=== PATIENT | female | born 1945 | race African-American/Black ===

== ENCOUNTER 2016-08-31 13:40 | Inpatient (IN) | payer MEDICARE, MEDICAID ==
[~2016-08-31] VITALS: Ht 167.6 cm; Wt 90.7 kg
--- NOTE | ~2016-08-31 | OP ---
PATIENT NAME: WESLEY SMITH MEDICAL RECORD: [id number] :47 LOCATION:D.M2 D.2100 ADMISSION DATE:08/31/16 SURGEON: JOEL HERNANDEZ MD DATE OF OPERATION: 09/19/2016 PREOPERATIVE DIAGNOSES: 1. Left heel decubitus ulcer. 2. End-stage renal disease. 3. Diabetes mellitus. 4. Hypertension. 5. Hypothyroidism. POSTOPERATIVE DIAGNOSES: 1. Left heel decubitus ulcer. 2. End-stage renal disease. 3. Diabetes mellitus. 4. Hypertension. 5. Hypothyroidism. PROCEDURE: Debridement of left heel ulcer. SURGEON: Joel Hernandez MD REPORT OF PROCEDURE: The patient's left heel and lower extremity were prepped and draped in sterile fashion. A large eschar was present on the posterior left heel measuring out 3 x 5 cm. This eschar was completely excised down to normal appearing skin in all directions. As we dissected down through the subcutaneous, fatty tissue was noted to be necrotic all the way down to the bone. As we reached the calcaneus, the posterior aspect of the calcaneus was necrotic and friable consistent with osteomyelitis. The surrounding tissues had some purulence within it and cultures were taken. We removed all of the necrotic tissue, which was visible and then irrigated out the wound thoroughly with peroxide and saline solution. We then treated any bleeding with electrocautery and performed debridement of the calcaneus until it appeared to be stronger more viable bony tissue. We then packed the wound with peroxide soaked 4 x 4's and covered with 4 x 4's and Kerlix. COMPLICATIONS: None. CONDITION: Stable. ANESTHESIA: General endotracheal. BLOOD LOSS: 50 mL. TRANSINT:[id number] Voice Confirmation ID: [id number] DOCUMENT ID: [id number] OPERATIVE REPORT [id number] WESLEY SMITH JOEL HERNANDEZ MD CC: [id number] DICTATION DATE: 09/19/16 1440 CAR SUPERVISOR: 09/19/[address] [facility] [address] [id number]
--- NOTE | ~2016-08-31 | HEMODYNAMI ---
PATIENT:WESLEY SMITH MEDICAL RECORD: [id number] : 47 LOCATION:[address] ADMISSION DATE: 08/31/16 Generatedon:09/22/201610:08 Patient name: WESLEY SMITH Patient #: [id number] SSN: DO B: 1945 Date of study: 09/22/2016 Page: Of Hemodynamic Procedure Report Patient Data Patient Demographics Procedure consent was obtained First Name: WESLEY Gender: Female Last Name: SARAH : 1945 Patient #: [id number] Age: 70 year(s) Race: Black Additional ID: [id number] Contact details Address: [address] [place] [address] State: [place] City: [place] Zip code: [address] Past Medical History Allergies: No known allergies Admission Admission Data Admission Date: 08/31/2016 Admission Time: 13:40 Room #: [facility] Weight (lbs.): 90 Weight (kg.): 40.82 Procedure Procedure Types Cath Procedure Peripheral Cath Diagnostic Procedure Cath Peripheral Abd/Extremity Extremities Bilat Lower Extremity Procedure Description Procedure Date Procedure Date: 09/22/2016 Procedure Start Time: 9:33 Procedure Staff Name Function Oni Guerra MD Performing Physician Yosi Tracy RT Scrub Nova Anderson RN Nurse Shivani Fraga RT Brake Lining Curer Shivani Fraga RT Monitor Procedure Data Cath Procedure Fluoroscopy Diagnostic fluoroscopy Total fluoroscopy Time: 5 time: 5 min min Diagnostic fluoroscopy Total fluoroscopy dose: 151 dose: 151 mGy mGy Contrast Material Contrast Material Type Amount (ml) Isovue 300 95 Entry Location Entry Primary Successful Side Size Upsize Upsize Entry Closure Succ essful Closure Location (Fr) 1 (Fr) 2 (Fr) Remarks Device Remarks Femoral Angio-VIP artery 6Fr Diagnostic catheters Device Type Used For End Catheter Placement Merit ULTRA BOLUS FLUSH 5Fr 65CM catheter Procedure Medications Medication Administration Route Dosage Fentanyl I.V. 50 mcg Versed I.V. 1 mg Oxygen NC 3 l/min Lidocaine 1% added to field 20 unlisted medication I.A. 2000 units Fentanyl I.V. 50 mcg Aspirin P.O. 325 mg Plavix P.O. 75 mg Hemodynamics Rest Heart Rate: 96 (bpm) Snapshots Pre Cath Intra NCS Post Cath Vital Signs Time Heart Resp SPO2 NIBP (mmHg) Rhythm Pain Sedation Rate (ipm) (%) Status Level (bpm) 9:15:09 85 21 100 137/86(94) NSR 0 (11) 10(A) , No pain 9:19:31 83 19 100 135/83(103) NSR 0 (11) 10(A) , No pain 9:23:52 85 20 100 141/82(105) NSR 0 (11) 10(A) , No pain 9:28:08 83 20 100 136/84(114) NSR 0 (11) 10(A) , No pain 9:32:24 83 18 100 128/85(106) NSR 0 (11) 10(A) , No pain 9:37:23 84 17 100 Measuring NSR 0 (11) 10(A) , No pain 9:37:43 83 16 100 139/81(111) NSR 0 (11) 9(A) , No pain 9:42:03 80 15 100 132/81(101) NSR 0 (11) 9(A) , No pain 9:46:24 79 13 100 125/80(91) NSR 0 (11) 9(A) , No pain 9:50:40 79 15 100 125/75(98) NSR 0 (11) 9(A) , No pain 9:54:55 70 14 100 122/78(99) NSR 0 (11) 9(A) , No pain 9:59:14 79 12 100 129/73(100) NSR 0 (11) 10(A) , No pain 10:03:25 82 17 100 123/80(103) NSR 0 (11) 10(A) , No pain 10:07:44 79 15 100 139/73(101) NSR 0 (11) 10(A) , No pain Medications Time Medication Route Dose Verified Delivered Reason Notes Effe ctiveness by by 9:10:11 Oxygen NC 3 Nova Nova Per protocol l/min Monica Anderson RN RN 9:10:38 Lidocaine added 20ml Nova Oni 1% to vial Monica nowak RN, MD 9:35:10 Fentanyl I.V. 50 Nova Nova for sedation mcg Monica Anderson RN RN 9:35:21 Versed I.V. 1 mg Nova Nova for sedation Monica Anderson RN RN 9:45:48 heparin I.A. 2000 Nova Oni for units Monica chaney RN, MD 9:48:35 Fentanyl I.V. 50 Nova Nova for sedation mcg Monica Anderson RN RN 10:06:41 Aspirin P.O. 325 Nova Nova mg Monica Anderson RN RN 10:06:52 Plavix P.O. 75 mg Nova Nova Monica Anderson RN metrology manager Log Time Note 8:27:28 Patient Weight : 90 kg 8:49:38 Time tracking: Regular hours 8:50:05 Plan of Care:Hemodynamics will remain stable., Cardiac rhythm will remain stable., Comfort level will be maintained., Respiratory function will remain adequate., Patient/ family verbilizes understanding of procedure., Procedure tolerated without complication., Recovers from procedure without complications.. 8:50:08 Correct patient and procedure confirmed by team. 8:50:10 Signed procedure consent form obtained from patient. 8:50:18 H&P Date Dictated: 09/22/2016 Within 30 days and on chart.. 8:50:27 - 8:50:39 Use device set IR Diagnostic 8:50:43 Sterile Angiographic Pack opened to sterile field. 8:50:44 Bag Decanter opened to sterile field. 8:50:45 Acist Manifold opened to sterile field. 8:50:46 Acist Hand Control opened to sterile field. 8:50:48 Acist Syringe opened to sterile field. 8:51:09 Terumo 5Fr [place] Sheath opened to sterile field. 8:51:10 PERCUTANEOUS ENTRY 19GA needle opened to sterile field. 8:51:11 ORVIBO DOC .035 guide wire opened to sterile field. 8:51:16 - 8:51:32 Patient diabetic? Yes. 9:10:11 Oxygen 3 l/min NC was administered by Nova Anderson RN; Per protocol ; 9:10:38 Lidocaine 1% 20ml vial added to field was administered by Oni Guerra MD; ; 9:13:38 ECG and BP/O2 sat monitors applied to patient. 9:13:39 Vital chart was started 9:13:40 Baseline sample Acquired. 9:13:42 Full Disclosure recording started 9:13:43 - 9:13:46 Family unavailable. 9:13:50 Patient NPO since Midnight. 9:16:44 Patient allergic to No known allergies 9:17:57 If diabetic: On Metformin? No 9:18:04 - 9:18:06 ----Pre-sedation anethsthesia assessment.---- 9:18:10 Previous problem with sedation/anesthesia? No ? 9:18:13 Snore? Yes 9:18:15 Sleep apnea? No 9:18:17 Deviated septum? No 9:18:18 Opens mouth fully? Yes 9:18:21 Sticks out tongue? Yes 9:18:32 Airway obstruction? No but has heart disease 9:18:37 Dentures? No ? 9:18:55 Pre procedure: right dorsailis pedis pulse Doppler 9:19:00 Pre procedure: left dorsailis pedis pulse Doppler 9:19:06 Pre procedure: right posterior tibial pulse Doppler 9:23:16 IV patent on arrival in left forearm with 0.9% NaCl at [facility]. 9:23:21 Right groin area was prepped with chlora-prep and draped in sterile fashion 9:23:30 Alarms reviewed by Lencho Garcia 9::31 Sharps counted by scrub and verified by RLeonNLeon 9::32 - 9:32:05 Physician arrived 9:32:18 --------ALL STOP TIME OUT------ 9:32:19 Final Timeout: patient, procedure, and site verified with staff and physician. All members of the team are in agreement. 9:32:36 Physical assessment completed. ASA score P 3 - A patient with severe systemic disease as per Oni Guerra MD. 9:32:42 Sedation plan: IV Moderate Sedation Versed, Fentanyl 9:33:00 A [employer] ULTRA BOLUS FLUSH 5Fr 65CM catheter was advanced over the wire and used for . 9:33:06 Procedure started. 9:33:12 Local anesthetic to right femoral artery with Lidocaine 1% by Oni Guerra MD.INITIAL ACCESS ONLY 9:35:10 Fentanyl 50 mcg I.V. was administered by Nova Anderson RN; for sedation; 9:35:21 Versed 1 mg I.V. was administered by Nova Anderson RN; for sedation; 9:36:53 Terumo TORQUE DEVICE PLASTIC .038 opened to sterile field. 9:37:10 Terumo ANGLE 260cm glide wire opened to sterile field. 9:44:57 Cook FUNES 260 guide wire opened to sterile field. 9:45:08 BasixTOUCH Inflation Syringe opened to sterile field. 9:45:48 heparin 2000 units I.A. was administered by Oni Guerra MD; for anticoagulation; 9:45:59 Inflation number: 1 A Cordis Powerflex Pro 5.0 x 40 x 135cm balloon was prepped and advanced across the Undefined1, then inflated to 15 MCKENNA for 0:10 (min:sec). 9:47:47 Inflation number: 2 A Cordis Powerflex Pro 6.0 x 40 x 135cm balloon was prepped and advanced across the Undefined1, then inflated to 15 MCKENNA for 0:08 (min:sec). 9:48:35 Fentanyl 50 mcg I.V. was administered by Nova Anderson RN; for sedation; 9:49:45 VIABAHN 6 X 10 X 120 stent was deployed across Undefined1 . 9:58:09 ANGIOSEAL-VIP PLUS 6 FR opened to sterile field. 9:59:23 A sheath was inserted into the Femoral artery 9:59:23 Sheath removed intact; hemostasis achieved with Angio-VIP 6Fr to the Femoral artery. 10:01:40 Procedure ended.(Physican Out) 10:02:19 Procedure and supply charges have been captured, reviewed, submitted an d are correct. 10:05:58 Fluoroscopy time 05.00 minutes. 10:06:04 Fluoroscopy dose: 151 mGy 10:06:04 Flurop Dose total: 151 10:06:10 Contrast amount:Isovue 300 95ml. 10:06:28 Post Procedure Pulses reassessed and unchanged 10:06:41 Aspirin 325 mg P.O. was administered by Nova Anderson RN; ; 10:06:52 Plavix 75 mg P.O. was administered by Nova Anderson RN; ; 10:08:09 Vital chart was stopped Intervention Summary Intervention Notes Time ActionType Lesion and Equipment Action# Pressure Duration Attributes Used 9:45:59 Inflate Undefined1 Cordis 1 15 00:10 balloon Powerflex Pro 5.0 x 40 x 135cm balloon 9:47:47 Inflate Undefined1 Cordis 2 15 00:08 balloon Powerflex Pro 6.0 x 40 x 135cm balloon 9:49:45 Deploy self Undefined1 VIABAHN 6 1 expanding X 10 X stent 120 stent Device Usage Item Name Manufacture Quantity Catalog Number Hospital Part Current Min imal Lot# / Charge Number Stock Stock Serial# Code Sterile Cardinal 1 [id number] Angiographic Health Pack Bag Decanter Microtek 1 [id number] 99454 611425 Groupiter Inc. Acist Acist 1 49229 797782 783792 854223 5 Manifold Medical Systems Inc Acist Hand Acist 1 26151 927499 761365 949283 5 Control Medical Systems Inc Acist Syringe Acist 1 63246 592517 459480 387117 20 Medical Systems Inc Terumo 5Fr Terumo 1 [id number] 235111 477189 643610 40 [place] Sheath PERCUTANEOUS Cook Medical 1 Y55329 610224 843172 5 ENTRY 19GA needle Cook DOC .035 Cook Medical 1 J50991 414835 528034 5 [id number] guide wire Merit ULTRA Merit 1 [id number] 303636 956835 5 BOLUS FLUSH Medical 5Fr 65CM catheter Terumo TORQUE [place] 1 TD01 939334 176804 317359 5 DEVICE Scientific PLASTIC .038 Terumo ANGLE Terumo 1 WD1872 628962 724458 559295 5 260cm glide wire Cook FUNES Cook Medical 1 U89803 008662 255444 5 [id number] 260 guide wire BasixTOUCH Merit 1 AH0775 863490 521648 074666 5 Inflation Medical Syringe Cordis Cardinal 1 [id number] 371132 419647 442748 5 Powerflex Pro Health 5.0 x 40 x 135cm balloon Cordis Cardinal 1 [id number] 416013 858254 709766 5 Powerflex Pro Health 6.0 x 40 x 135cm balloon VIABAHN 6 X [place] 1 [id number] 875794 658834 222867 5 [id number] 10 X [address]-V[address] [place] 1 895563 601159 550216 5 [id number] PLUS 6 FR Signature Audit [place] Stage Time Signature Unsigned Intra-Procedure 09/22/2016 Shivani Fraga 10:08:05 AM RT(R) Signatures Monitor : Shivani Fraga RT Signature : Date : Time : [facility] [address] [place] [address]
--- NOTE | 2016-08-31 13:47 | NUR ---
PT ARRIVED FROM EMS TEAM. PT IS CONFUSED TO PLACE AND SITUATION. PT STATES SHE LIVES AT HOME WITH HER BUT IM NOT ABLE TO VERIFY THIS AT THIS TIME. H&P VERY BASIC AND WILL NEED UPDATED WHEN MORE INFORMATION IS AVAILABLE. PT UNABLE TO PROVIDE, ACCURATELY. PT HAS A L.HAND PIV WITH DRSG CDI AND SWAB CAPS IN USE. RR NONLABORED ON RA, BREATH SOUNDS CTA THROUGHOUT ALL LOBES. IN REPORT CRISTNI NURSE FARAZ STATED PT HAD DECUB ULCER ON SACRUM HOWEVER ALL THAT I NOTED WAS A SKIN TEAR THAT APPEARED TO BE SHEARING R/T FRICTION. PT DOES HOWEVER HAVE A L.HEEL NECROTIC SORE 4X4 MEASUREMENT. PROPPED HEEL AND LEFT KEYBOARD INSTRUMENT REPAIRER AND PLACED A WOUND CARE CONSULT FOR ORDERS. VSS, CL IN REACH AND TEACHING PROVIDED. ADMISSION ASSESSMENT COMPLETED, WILL NOW NOTIFY RENAL THAT PT IS HERE AND OBTAIN ORDERS. BED ALARM IN PLACE. WILL CPOC.
[2016-08-31 14:37] LABS: BASOPHILS 0.1 % (0-2); EOSINOPHILS 0 % (0-7); HEMATOCRIT 24.8 % (36.0-48.0); HEMOGLOBIN 8.3 g/dL (12-16); IMMATURE GRANULOCYTES 0.5 % (0-5); LYMPHOCYTES 17.6 % (15-50); MCH 30.7 pg (26.0-34.0); MCHC 33.5 g/dL (31.0-37.0); MCV 91.9 fL (80.0-100.0); MONOCYTES 8.5 % (2-11); NEUTROPHILS 73.3 % (40-80); PLATELET COUNT 271 10x3/uL (130-400); RDW 17.7 % (11.5-14.5); WBC 7.3 10x3/uL (4.8-10.8)
--- NOTE | 2016-08-31 14:44 | NUR ---
AT BEDSIDE ROUNDING. PT IS CONFUSED STILL AND NEEDING DIALYSIS AND ACCESS FOR IT. CALLED PTS ER CONTACT WHOM WAS HER NIECE FLORENTINO CHAVARRIA. NIECE STATES PT HAS AND LIVES AT HOME WITH HIM BUT HE DOES NOT HAVE A PHONE. I PERSONALLY TALKED TO PT AND SHE STATES SHE KNEW SHE WAS NEEDING DIALYSIS BUT NEVER HAD TO HAVE IT YET. OBTAINED CONSENTS FOR TRIALYSIS ACCESS PER , WITNESSED WITH RAYO CALLOWAY. NIECE GAVE PHONE PERMISSION WELL PT GAVE ME VERBAL OKAY AND ATTEMPTED TO SIGN BUT SIGNATURE WAS VERY WEAK. BLOOD CONSENT CONFIRMED WELL AND WITNESSED. WILL CPOC.
[2016-08-31 14:49] LABS: ALBUMIN 2.6 g/dL (3.4-5.0); ANION GAP 26.8 mmol/L (8-16); BILIRUBIN - TOTAL 0.4 mg/dL (0.2-1.3); CARBON DIOXIDE 16.3 mmol/L (21.0-32.0); CREATININE - SERUM 12.7 mg/dL (0.6-1.3); POTASSIUM - SERUM 4.1 mmol/L (3.5-5.1); PROTEIN - SERUM 7.5 g/dL (6.4-8.2)
[2016-08-31 14:52] LABS: CALCIUM 6.4 mg/dL (8.5-10.1)
--- NOTE | 2016-08-31 15:01 | NUR ---
GUADALUPE CATH PLACED 16F. STERILE TECHNIQUE INITIATED. 10 CC STERILE FLUID INSERTED INTO BALLOON. IMMEDIATE DARK YELLOW URINE RETURN INTO CATHETER BAG 400 CC RETURN. URINE COLLECTED AND SENT TO THE LAB
[2016-08-31 15:32] LABS: APPEARANCE HAZY (CLEAR); BILIRUBIN NEGATIVE (NEGATIVE); COLOR YELLOW (YELLOW); GLUCOSE NEGATIVE (NEGATIVE); KETONE NEGATIVE (NEGATIVE); LEUKOCYTE ESTERASE 2+ (NEGATIVE); NITRITE NEGATIVE (NEGATIVE); PROTEIN 3+ mg/dL (NEGATIVE); SPECIFIC GRAVITY 1.015 (1.005-1.020); UROBILINOGEN NORMAL (NORMAL)
[2016-08-31 15:34] LABS: BACTERIA FEW /hpf (NONE SEEN); RED CELLS - URINE NONE SEEN /hpf (0-5)
--- NOTE | 2016-08-31 16:18 | NUR ---
CALLED TO FIND OUT TIME FOR TRIALYSIS PLACEMENT. HE WILL BE HERE IN ABOUT 30 MINS, CALLED [facility] FOR TRIALYSIS KIT. DIALYSIS AWARE AND WAITING FOR PLACEMENT TO BEGIN. WILL CTM.
[2016-08-31 16:25] VITALS: BP 108/78; BMI 32.3
[2016-08-31 16:39] VITALS: BP 123/67
--- NOTE | 2016-08-31 17:24 | NUR ---
AT BEDSIDE PERFORMING TRIALYSIS PLACEMENT. PT RESTING QUIETLY AND COOPERATING WITHOUT ANY ISSUES. WILL CTM.
--- NOTE | 2016-08-31 17:38 | NUR ---
13FR TRIALYSIS NOW IN PLACE PER . STAT CHEST XRAY ORDERED PER PROTOCOL TO VERIFY PLACEMENT.
--- NOTE | 2016-08-31 21:16 | NUR ---
DIALYSIS COORDINATOR: [facility]: Notified of patient needing OPHD arrangements. Patient is to receive Perm Cath (@ bedside) then undergo HD this evening. Met with patient, although confused, she was able to confirm personal/demographic information. Patient states she would like to be placed at [facility]. Referral forwarded, placement pending Crop Puller & financial approval. Will update CM once schedule confirmed. HAMZAH HARRELL.
[2016-09-01 00:23] VITALS: BP 126/66
[2016-09-01 04:13] VITALS: BP 130/63
[2016-09-01 08:30] VITALS: BP 117/47
--- NOTE | 2016-09-01 09:40 | NUR ---
PT LEAVING UNIT FOR DIALYSIS.
[2016-09-01 14:28] VITALS: Ht 167.6 cm; Wt 90.7 kg
--- NOTE | 2016-09-01 15:03 | NUR ---
WOUND CARE CONSULT: PT HAS UNSTAGEABLE PRESSURE INJURY ON LEFT HEEL. MEASURING 4CM X 7CM X ESCHAR. THE EDGES ARE PEELING WITH PINK SKIN NOTED. THERE IS A FOUL ODOR. COVERED WITH NON-ADHERENT GAUZE/ABD PAD FOR COMFORT AND WRAPPED WITH KERLIX. HEELS ARE BRIDGED ON PILLOWS. PERINEAL AREA IS EXCORIATED D/T INCONTINENCE. CALMOSEPTINE CREAM HAS BEEN ORDERED. AN AIR OVERLAY MATTRESS HAS BEEN ORDERED TO HELP DECREASE MOISTURE. THERE IS A SKIN TEAR ON PTS BOTTOM. SHE IS BEING TURNED/REPOSITIONED Q2H. WILL MONITOR.
--- NOTE | 2016-09-01 15:08 | NUR ---
PT BACK FROM DIALYSIS. ADMINISTERED LOVENOX AND EPOGEN ORDERED. PT STILL LETHARGIC AND TIRED, STILL CONFUSED. DENIES ANY PAIN OR NEEDS AT THIS TIME. PT HASNT EATEN TODAY AND DENIES BEING HUNGRY WILL MAKE SURE PRIMARY DOCTOR IS AWARE AND CTM.
[2016-09-01 15:59] VITALS: BP 118/70
--- NOTE | 2016-09-01 16:12 | NUR ---
Patient Name: WESLEY SMITH Admission Status: Urgent Accout number: [id number] Admission Date: 08-31-2016 : 1945 Admission Diagnosis:ACUTE KIDNEY FAILURE, UNSPECIFIED Attending: BARBARA Current LOS: 1 Anticipated DC Date: Planned Disposition: Home Primary Insurance: [employer]ARE ADV Discharge Planning Comments: CM RECEIVED ORDER TO ARRANGE OUTPATIENT DIALYSIS CLINIC IN [place]; CM SPOKE TO MARTA MORALEZ OF [facility] WHO IS WORKING ON NEW CLINIC ARRANGEMENT. PT WAS NOT IN ROOM AT 0900, 1000 AND 1100 TODAY. CM ATTEMPTED TO MEET WITH PT IN ROOM TODAY AT 1530 HOURS AND WAS NOT ABLE TO AROUSE PT SUFFICENTLY TO HOLD CONVERSATION. CM TO FOLLOW UP WITH PT AT LATER DATE/TIME FOR ASSESSMENT OF DISCHARGE NEEDS. Director College: Issa Bennett
--- NOTE | 2016-09-01 18:00 | NUR ---
PT STAYED LETHARGIC/DROWSY CONFUSED THROUGHOUT MY ENTIRE SHIFT. PT WILL WAKE UP TO VOICE AND TOUCH BUT IS CONFUSED. NO HOME MEDS ARE RESTARTED AND RENAL WANTS TO HOLD OFF HOPING WITH DIALYSIS SHE WILL CLEAR UP. PT ALSO DIDNT EAT TODAY WILL PASS OFF IN REPORT AND NOTIFY VENETIAN BLIND CLEANER WELL FOR POSSIBLE SUPPLEMENTATION. PT REC'D BED BATH TODAY PER CNAS. PT STARTED LOVENOX FOR DVT PROPHYLATICS TODAY. NO FURTHER NEEDS. WILL PASS ON IN REPORT AND CTM.
--- NOTE | 2016-09-01 18:38 | NUR ---
DIALYSIS COORDINATOR: Patient has been accepted at [facility] on a //Sun schedule @ 11:30am. She CANNOT START ON A SUNDAY. HAMZAH HARRELL.
[2016-09-01 20:21] VITALS: BP 116/64
[2016-09-02 00:25] VITALS: BP 137/68
[2016-09-02 04:33] VITALS: BP 118/54
[2016-09-02 06:18] LABS: BASOPHILS 0 % (0-2); EOSINOPHILS 0 % (0-7); HEMATOCRIT 21.8 % (36.0-48.0); IMMATURE GRANULOCYTES 0.4 % (0-5); LYMPHOCYTES 21.1 % (15-50); MCH 30.3 pg (26.0-34.0); MCHC 32.6 g/dL (31.0-37.0); MCV 93.2 fL (80.0-100.0); MEAN PLATELET VOLUME 9.6 fL (7.4-10.4); MONOCYTES 10.4 % (2-11); NEUTROPHILS 68.1 % (40-80); PLATELET COUNT 266 10x3/uL (130-400); RBC 2.34 10x6/uL (4.00-5.40); RDW 17.5 % (11.5-14.5); WBC 6.7 10x3/uL (4.8-10.8)
[2016-09-02 06:21] LABS: HEMOGLOBIN 7.1 g/dL (12-16)
[2016-09-02 06:35] LABS: CALCIUM 7.5 mg/dL (8.5-10.1); CREATININE - SERUM 5.3 mg/dL (0.6-1.3)
[2016-09-02 06:37] LABS: ANION GAP 15.3 mmol/L (8-16); CARBON DIOXIDE 26.2 mmol/L (21.0-32.0); POTASSIUM - SERUM 2.5 mmol/L (3.5-5.1)
--- NOTE | 2016-09-02 07:11 | NUR ---
CRITICAL LAB VALUES RECEIVED. HGB 7.1 AND K+ 2.5. CALL TO SURINDER WILKES APN CRIMINAL DEFENSE LAWYER. ORDER RECEIVED FOR 2 UNITS PRBC'S DURING DIALYSIS TODAY AND TO GIVE ONE TIME DOSE ORALLY PILL OR LIQUID FORM. REPORT GIVEN TO DAY SHIFT NURSE.
--- NOTE | 2016-09-02 07:30 | NUR ---
RESTING QUIETLY EYES CLOSED RESP UNLABORED NG TUBE PATENT TO NEGRITO DAVID NOTED
--- NOTE | 2016-09-02 07:30 | NUR ---
ASSESSMENT COMPLETED. lying quietly. NO DISTRESS NOTED. LEFT HAND SL RIGHT IJ TRIALYSIS. GUADALUPE CATH PATENT TO GRAVITY BAG. NO NEEDS VOICED. SR UP AITH CALL LIGHT IN REACH
[2016-09-02 08:01] VITALS: BP 119/59
[2016-09-02 08:17] LABS: HEPATITIS C ANTIBODY <0.1 (0.0-0.9)
[2016-09-02 15:42] VITALS: BP 116/66
--- NOTE | 2016-09-02 16:23 | NUR ---
BACK FROM DIALYSIS. NO NEEDS VOICED. V/S STABLE
--- NOTE | 2016-09-02 18:06 | NUR ---
REPOSITIONED FOR COMFORT. DENIES ANY NEEDS. CALL LIGHT IN REACH WITH SR UP . WILL MONITOR
[2016-09-02 20:00] VITALS: BP 116/55
--- NOTE | 2016-09-02 20:00 | NUR ---
RESTING IN BED. GUADALUPE PATENT TO BEDSIDE DRAIN BAG. SALINE LOCK TO LEFT HAND. RIGHT IJ TRIALYSIS. PT WAS DIALYZED TODAY. LEFT HEEL DRESSING C/D/I. TURN EVERY 2 HOURS FOR SKIN TEAR ON BUTTOCKS. SEE SHIFT ASSESSMENT. CPOC.
[2016-09-03] VITALS (7 sets, daily range): BP systolic 127–154; BP diastolic 52–85
[2016-09-03 06:59] LABS: ANION GAP 12.3 mmol/L (8-16); CARBON DIOXIDE 30.5 mmol/L (21.0-32.0)
[2016-09-03 07:00] LABS: CREATININE - SERUM 3.8 mg/dL (0.6-1.3)
[2016-09-03 07:01] LABS: POTASSIUM - SERUM 2.8 mmol/L (3.5-5.1)
[2016-09-03 07:02] LABS: BASOPHILS 0.1 % (0-2); EOSINOPHILS 0 % (0-7); HEMATOCRIT 28.9 % (36.0-48.0); HEMOGLOBIN 9.5 g/dL (12-16); IMMATURE GRANULOCYTES 0.6 % (0-5); LYMPHOCYTES 17.7 % (15-50); MCH 29.5 pg (26.0-34.0); MCHC 32.9 g/dL (31.0-37.0); MCV 89.8 fL (80.0-100.0); MEAN PLATELET VOLUME 9.7 fL (7.4-10.4); NEUTROPHILS 69.6 % (40-80); PLATELET COUNT 237 10x3/uL (130-400); RBC 3.22 10x6/uL (4.00-5.40); RDW 20.1 % (11.5-14.5); WBC 8.6 10x3/uL (4.8-10.8)
--- NOTE | 2016-09-03 07:30 | NUR ---
RESTING QUIETLY EYES CLOSED RESP UNLABORED NAD NOTED
--- NOTE | 2016-09-03 08:23 | NUR ---
ASSESSMENT COMPLETED. SL TO LEFT HAND. RIGHT IJ TRIAYLIS NOTED. GUADALUPE CATH TO GRAVITY BAG. AIR OVER LAY TO BED. . WILL MONITOR. SR UP WITH CALL LIGHT IN REACH. BUTTOCKS RED, CALMOSEPTIME APPLIED
--- NOTE | 2016-09-04 01:03 | NUR ---
TEMP 100.3 WILL MONITOR.
[2016-09-04 03:44] VITALS: BP 139/72
[2016-09-04 06:12] LABS: BASOPHILS 0.1 % (0-2); EOSINOPHILS 0 % (0-7); HEMATOCRIT 30.6 % (36.0-48.0); HEMOGLOBIN 9.9 g/dL (12-16); IMMATURE GRANULOCYTES 0.3 % (0-5); LYMPHOCYTES 20.3 % (15-50); MCH 29.6 pg (26.0-34.0); MCHC 32.4 g/dL (31.0-37.0); MCV 91.3 fL (80.0-100.0); MEAN PLATELET VOLUME 8.9 fL (7.4-10.4); MONOCYTES 10.3 % (2-11); PLATELET COUNT 205 10x3/uL (130-400); RBC 3.35 10x6/uL (4.00-5.40); RDW 20.1 % (11.5-14.5); WBC 9.4 10x3/uL (4.8-10.8)
[2016-09-04 06:29] LABS: CALCIUM 8.4 mg/dL (8.5-10.1); CARBON DIOXIDE 27.6 mmol/L (21.0-32.0); CREATININE - SERUM 4.7 mg/dL (0.6-1.3)
[2016-09-04 06:32] LABS: ANION GAP 13.4 mmol/L (8-16)
--- NOTE | 2016-09-04 06:36 | NUR ---
PT MUCH MORE ALERT/AWAKE AND INTERACTIVE THIS AM. C/O ALL OVER PAIN AND DISCOMFORT. EXPLAINED TO PATIENT THAT MD HAS KEPT HER FROM RECIEVING ANY SEDATING MEDS DUE TO HER INITIAL LETHARGY AND DIFFICULTY KEEPING HER AWAKE. INSTRUCTED PT THAT NOW SHE NEEDS TO TALK TO HER MD AND SHOW HIM THAT SHE IS MORE ALERT AND SEE IF HE WILL PROVIDE HER WITH SOME PAIN MEDICATION. PT VERY TEARFUL WITH LOW MOANING DURING CONVERSATION. MONITOR AND CONTINUE PLAN OF CARE.
[2016-09-04 08:01] VITALS: BP 155/72
[2016-09-04 12:09] VITALS: BP 166/102
--- NOTE | 2016-09-04 15:58 | NUR ---
DURING THIS SHIFT PATIENT HAS HAD 2 BOUTS OF LIQUID STOOL. COMPLETE BED BATH GIVEN WITH GUADALUPE CARE DONE. HEEL DRESSING CHANGED. SCANT AMT OF DARK BLOODY DRAINAGE ON DRESSING. NEW ONE APPLIED. ALERT BUT DOES GO RIGHT BACK TO SLEEP.
--- NOTE | 2016-09-04 18:46 | NUR ---
Mrs. Samaniego had bedside hemodialysis via her right IJ Trialysis from 1527 until 1827 today. Average blood flow was 400 mls/minute. Net fluid removed was 1500 mls. Post vital signs were: B/P: 137/42, HR: 72, Resps: 16, Temp: 96.9.
--- NOTE | 2016-09-04 19:00 | NUR ---
INITIAL ROUNDS MADE. PT LYING IN BED WATCHING TV WITH FAMILY AT BEDSIDE. REQUESTING PUDDING OR APPLESAUCE, PT CURRENTLY UNABLE TO EAT FOOD ON TRAY-NOT SOFT ENOUGH. DRY CELL BATTERY ASSEMBLER AT BEDSIDE GETTING PT SNACK. WILL CONT TO MONITOR.
[2016-09-04 21:42] VITALS: BP 144/62
[2016-09-04 23:39] VITALS: BP 126/60
--- NOTE | 2016-09-05 00:38 | NUR ---
BRICK LAYER AT BEDSIDE FOR VS. NEEDS ADDRESSED AT THIS TIME. CALL LIGHT IN REACH. WILL CONT TO MONITOR.
[2016-09-05 04:01] VITALS: BP 111/72
--- NOTE | 2016-09-05 05:00 | NUR ---
AM LABS DRAWN FROM RIGHT IJ TRIALYSIS CATHETER PER PROTOCOL.
[2016-09-05 06:05] LABS: BASOPHILS 0.1 % (0-2); EOSINOPHILS 0 % (0-7); HEMOGLOBIN 10.4 g/dL (12-16); IMMATURE GRANULOCYTES 0.4 % (0-5); LYMPHOCYTES 17.6 % (15-50); MCH 29.8 pg (26.0-34.0); MCHC 32.5 g/dL (31.0-37.0); MCV 91.7 fL (80.0-100.0); MEAN PLATELET VOLUME 9.5 fL (7.4-10.4); MONOCYTES 9.9 % (2-11); PLATELET COUNT 225 10x3/uL (130-400); RBC 3.49 10x6/uL (4.00-5.40); RDW 19.8 % (11.5-14.5); WBC 10.4 10x3/uL (4.8-10.8)
[2016-09-05 06:24] VITALS: BP 137/82
[2016-09-05 06:24] LABS: ANION GAP 12.3 mmol/L (8-16); CALCIUM 8.7 mg/dL (8.5-10.1); CREATININE - SERUM 3.2 mg/dL (0.6-1.3); POTASSIUM - SERUM 3.3 mmol/L (3.5-5.1)
[2016-09-05 08:48] VITALS: BP 145/80
--- NOTE | 2016-09-05 08:53 | NUR ---
ADMINISTERED LOVENOX ORDERED AND GAVE PAIN MED FOR PAIN LEVEL OF 8/10. PT IN BED, DENIES ANY OTHER NEEDS AT THIS TIME. CALL LIGHT IN REACH, NAD NOTED, WILL CONTINUE TO MONITOR.
[2016-09-05 12:30] VITALS: BP 131/83
--- NOTE | 2016-09-05 15:44 | NUR ---
PT IN BED, SLEEPING AT THIS TIME. CALL LIGHT IN REACH, NAD NOTED, WILL CONTINUE TO MONITOR.
[2016-09-05 16:05] VITALS: BP 146/61
[2016-09-05 20:19] VITALS: BP 154/77
--- NOTE | 2016-09-05 23:00 | NUR ---
NURSE ROUNDS 21:30 - PT LYING IN BED, AWAKE, ALERT, ORIENTED, DENIED ANY NEEDS, REQUESTING TO BE LEFT ALONE SO SHE CAN SLEEP. CONTINUE TO MONITOR CLOSELY. BED LOW, CALL LIGHT IN REACH, SIDE RAILS X 2, HOB 30 DEGREES.
[2016-09-06 00:41] VITALS: BP 150/63
[2016-09-06 04:23] VITALS: BP 135/63
--- NOTE | 2016-09-06 06:31 | NUR ---
PT AWAKE, ALERT, ORIENTED, DENIES ANY NEEDS. PT STATES SHE SLEPT WELL THIS SHIFT. I DID OBTAIN CONSENTS FOR PROCEDURE, BLOOD, AND ANESTHESIA FOR UPCOMING HEMOSPLIT PLACEMENT. CONTINUE TO MONITOR CLOSELY. BED LOW, CALL LIGHT IN REACH, SIDE RAILS X 2, HOB 30 DEGREES.
[2016-09-06 06:55] LABS: BASOPHILS 0.1 % (0-2); EOSINOPHILS 0 % (0-7); HEMATOCRIT 31.6 % (36.0-48.0); HEMOGLOBIN 10.1 g/dL (12-16); IMMATURE GRANULOCYTES 0.5 % (0-5); LYMPHOCYTES 17.8 % (15-50); MCH 29.4 pg (26.0-34.0); MCV 91.9 fL (80.0-100.0); MEAN PLATELET VOLUME 9.8 fL (7.4-10.4); MONOCYTES 6.7 % (2-11); NEUTROPHILS 74.9 % (40-80); PLATELET COUNT 218 10x3/uL (130-400); RBC 3.44 10x6/uL (4.00-5.40); RDW 19.5 % (11.5-14.5); WBC 10.4 10x3/uL (4.8-10.8)
[2016-09-06 06:56] LABS: CALCIUM 8.6 mg/dL (8.5-10.1); CARBON DIOXIDE 27.4 mmol/L (21.0-32.0); POTASSIUM - SERUM 3.4 mmol/L (3.5-5.1)
[2016-09-06 07:00] LABS: CREATININE - SERUM 4.4 mg/dL (0.6-1.3)
[2016-09-06 07:47] VITALS: BP 131/67
--- NOTE | 2016-09-06 08:23 | NUR ---
EPOGEN GIVEN ORDER, LOVENOX HELD SINCE PT IS GOING TO OR. PT WANTING TO KNOW WHAT TIME SHE IS GOING TO THE OR, WILL CHECK SCHEDULE AND LET PT KNOW. PT DENIES ANY OTHER NEEDS AT THIS TIME. CALL LIGHT IN REACH, NAD NOTED, WILL CONTINUE TO MONITOR.
--- NOTE | 2016-09-06 09:50 | NUR ---
PROVIDED PT WITH BED BATH, PT NOW C/O PAIN OF 9/10 TO HER BOTTOM WHERE SHE HAS SORE, ADMINISTERED 2TAB OF ULTRACET. PT FIXING TO GET DIALYSIS AT THIS TIME. CALL LIGHT IN REACH, NAD NOTED, WILL CONTINUE TO MONITOR.
--- NOTE | 2016-09-06 10:19 | NUR ---
PREOP MED GIVEN ORDER. PT DENIES ANY NEEDS AT THIS TIME. CALL LIGHT IN REACH, NAD NOTED, WILL CONTINUE TO MONITOR.
--- NOTE | 2016-09-06 10:39 | NUR ---
PT TAKEN TO OR AT THIS TIME, NAD NOTED.
--- NOTE | 2016-09-06 10:59 | NUR ---
Rehab Prescreening Consult recieved and the chart was reviewed. She has [facility] Medicare ADV and will require a preauth for IRF. An OT and a PT eval will be required for their review. Once these are completed the referrel will be made to [facility]. Hedy Vazquez RN Clinical Liaison, Rehab
--- NOTE | 2016-09-06 11:09 | NUR ---
DIALYSIS COORDINATOR: Armaan Thakkar Admissions: There are NO In-Network dialysis clinics in the [facility]. The patient is going to have to pursue an Zgf-by-Pcxywod Authorization. To do this we need the name of the patient's PCP. The chart lists a Dr. Al Payne ([place]). RETIRED X 4 YEARS PER OFFICE. And she is not their patient. No other physician's listed on the chart. Must have a PCP to sign the OON Auth. HAMZAH HARRELL.
[2016-09-06 12:48] VITALS: BP 108/69
--- NOTE | 2016-09-06 12:49 | NUR ---
Nutrition follow-up: Pt s/p hemosplit placement today Diet: Full liquids per surgeon PO intake ~25% of meals Labs reviewed Wt: 199# +BM, liquid PO intake poor at this time Will provide food choices with selective menus and honor food preferences within diet restrictions. RDN will order Nepro TID
--- NOTE | 2016-09-06 12:53 | NUR ---
RECEIVED PT BACK TO ROOM 210 VIA BED, VITAL SIGNS STABLE, NAD NOTED, PT DENIES ANY NEEDS AT THIS TIME. CALL LIGHT IN REACH, NAD NOTED, WILL CONTINUE TO MONITOR.
[2016-09-06 15:54] VITALS: BP 117/70
--- NOTE | 2016-09-06 17:40 | NUR ---
PT GETTING DIALYSIS AT THIS TIME. DENIES ANY NEEDS, CALL LIGHT IN REACH, NAD NOTED, WILL CONTINUE TO MONITOR.
--- NOTE | 2016-09-06 20:18 | NUR ---
REPOSITIONED IN BED FOR COMFORT, BED LOW, CL IN REACH, WILL CONT TO MONINTOR.
[2016-09-06 20:44] VITALS: BP 113/70
--- NOTE | 2016-09-07 02:03 | NUR ---
RESTING WITH EYES CLOSED, RESPERATIONS EVEN, NO S/S DISTRESS NOTED.
--- NOTE | 2016-09-07 02:57 | NUR ---
ULTRACET 2 TAB GIVEN FOR C/O PAIN. RATES PAIN AT A 7 ON PAIN SCALE.
--- NOTE | 2016-09-07 07:17 | NUR ---
PT IS SITTING UP IN BED DENIES NEEDS WILL CONT TO MONITOR
[2016-09-07 08:34] VITALS: BP 144/82
--- NOTE | 2016-09-07 08:51 | OP ---
PATIENT NAME: WESLEY SMITH MEDICAL RECORD: [id number] :[birth year] LOCATION:D. D.2101 ADMISSION DATE:08/31/16 SURGEON: GERONIMO ARTEAGA MD DATE OF OPERATION: 09/06/2016 SURGEON: Geronimo Arteaga MD. PREOPERATIVE DIAGNOSIS: Chronic renal failure requiring hemodialysis. POSTOPERATIVE DIAGNOSIS: Chronic renal failure requiring hemodialysis. PROCEDURES PERFORMED: 1. Removal of right IJ Trialysis catheter. 2. Insertion of a tunneled hemodialysis catheter into the right internal jugular vein. 3. Immediate interpretation of fluoroscopy. ANESTHESIA: General. COMPLICATIONS: None. SPECIMENS: None. Case was clean. ESTIMATED BLOOD LOSS: 10 cc. OPERATIVE COURSE: After consent was obtained, the patient was taken to the operating room and placed in the supine position on the operating table. Next, general anesthesia was given via endotracheal intubation after a timeout was taken to confirm the correct patient and procedure. The right chest and neck were prepped and draped in typical sterile fashion. An 0.035 Glidewire was placed through the Trialysis catheter. It was advanced to the atriocaval junction under fluoroscopy. The Trialysis catheter was removed. Under fluoroscopy, the dilator and breakaway sheath were passed over the Glidewire and advanced to the atriocaval junction. The dilator was removed. A 10 cc of local anesthetic were injected into the right chest wall. A skin incision was made with a 15-blade scalpel. The tunneling device was then used to tunnel the catheter tip from the skin incision site to the needle stick site. The cuff was dissected and advanced into the subcutaneous tissue. The guidewire was loaded through the hemodialysis catheter. The hemostat was then placed into the breakaway sheath, it was advanced to the atriocaval junction under fluoroscopy, the breakaway sheath was removed. The guidewire was removed. Both ports were aspirated and flushed. Needle stick site was closed with 3-0 Vicryl sutures. Catheter was secured to the skin using 3-0 nylon suture and sterile Tegaderm dressing. The catheter was then flushed with 5000 units of heparin and 30 cc of injectable saline. At the end of the case, all needle and instrument counts were correct. No complications occurred. The patient was extubated and transferred to the PACU in stable condition. TRANSINT:[id number] Voice Confirmation ID: [id number] DOCUMENT ID: [id number] OPERATIVE REPORT [id number] WESLEY SMITH,GERONIMO Amaya MD at 0851 CC: [id number] DICTATION DATE: 09/06/16 1200 CHILDREN'S ENTERTAINER: 09/06/162227 ADM IN [place] [id number] [place] [address]
--- NOTE | 2016-09-07 09:47 | NUR ---
PT REFUSING BREAKFAST TRAY. PT ALSO REFUSED FOR ME TO CHANGE LEFT HEEL DRESSING.
--- NOTE | 2016-09-07 11:09 | NUR ---
PT HAS BEEN REFUSING TO BE TURNED AND REFUSING TO LET STAFF ASSESS WOUNDS STILL. PT STATES "JUST LET ME BE"
[2016-09-07 11:53] VITALS: BP 113/72
--- NOTE | 2016-09-07 12:14 | NUR ---
PT REFUSING TO EAT LUNCH OR BE TURNED STILL
--- NOTE | 2016-09-07 14:42 | NUR ---
PT HAD INC BM EPISODE. STAFF HAD TO BEG PT TO TURN SO WE COULD CLEAN HER UP. GIVEN PT A BATH DURING THIS. CLEANED PT UP FOR INC AND APPLIED CALMOSEPTINE OINTMENT AND APPLIED MEPELEX BANDAGE SIGNED AND DATED TO BOTTOM.
--- NOTE | 2016-09-07 14:59 | NUR ---
Rehab recieved another referral on this patient today. As documented yesterday she is [employer] managed medicare and will require a preauthorization. [facility] needs a PT and an OT eval to complete their eval. A PT eval was done today but the patient would not participate. An OT eval has still not been ordered. This need was discussed with the CM yesterday and again today. Hedy Vazquez RN CL
[2016-09-07 15:32] VITALS: BP 142/88
--- NOTE | 2016-09-07 16:44 | NUR ---
PT IS STILL REFUSING TO TURN Q2. DOES NOT WANT TO "BE TOUCHED". WILL CONT TO MONITOR. STILL REFUSING TO EAT
--- NOTE | 2016-09-07 17:21 | NUR ---
Patient Name: WESLEY SMITH Encounter No: [id number] : 1945 Primary Insurance: [employer] MEDICARE ADV Anticipated DC Date: Planned Disposition: Inpatient Rehab External Planned Provider: [facility] IN[facility] DCP follow-up note: * Is the patient Alert and Oriented? Yes 0 * How many steps to enter\exit or inside your home? 4 0 * PCP DR. LUONG 0 * Pharmacy [facility] 0 * Preadmission Environment Home with Family 0 * ADLs Partial Dependent 0 * Partial ADLs (Assistance needed) Bathing Transfers 0 * Equipment Bedside Commode Hospital Bed Rolling Walker Shower Chair 0 * Other Equipment UNKNOWN MEDICAL EQUIPMENT PROVIDER PREFERENCE 0 * List name and contact numbers for known caregivers / representatives who currently or will assist patient after discharge: FLORENTINO DELMARJOSE LUISSHAYAN, 0 * Community resources currently utilized Home Health Private Duty Care 0 * Please name any agencies selected above. PT REPORTS HAVING SERVICES WITH UNKNOWN PROVIDERS: HOME HEALTH FOR NURSING PERSONAL CARE, 5 DAYS WEEKLY, 3 HOURS PER DAY 0 * Additional services required to return to the preadmission environment? Yes * Can the patient safely return to the preadmission environment? Yes 0 * Has this patient been hospitalized within the prior 30 days at any hospital? No 0 CM RECEIVED ORDER FOR INPATIENT REHAB, PENITENTIARY REHAB OR HOME HEALTH CARE. CM MET WITH PT IN ROOM TO DISCUSS ORDER, DISCHARGE PLANNING AND NEEDS FOR DISCHARGE. PT REPORTS LIVING AT HOME WITH HER SPOUSE WHO ASSISTS WITH BATHING PT AND ASSISTING HER UP ONTO HER WALKER AT HOME. PT REPORTS HAVING HOME HEALTH WITH AN UNKNOWN COMPANY THAT HAS STOPPED THE THERAPY BUT CONTINUES WITH WEEKLY NURSING VISITS. PT REPORTS HAVING PERSONAL CARE WITH UNKNOWN AGENCY, WITH SUNDAY THRU SUNDAY, 3 HOUR DAILY PERSONAL CARE SERVICES. PT REPORTS SHE WILL HAVE HER DRIVE HER TO AND FROM DIALYSIS IN [place]; PT'S SPOUSE NORMALLY TRANSPORTS PT TO ALL OUTSIDE APPOINTMENTS. CM DISCUSSED REHAB AVAILABILITY AND OPTIONS. PT WOULD LIKE TO STAY AT [facility] IF POSSIBLE AND WOULD LIKE TO TRANSITION FROM INPATIENT REHAB BACK TO HOME. PT DID NOT WANT TO CONSIDER PENITENTIARY FACILITY PLACEMENT FOR REHAB AT THIS TIME. PT REPORTS HER SPOUSE WILL PICK HER UP FOR DISCHARGE HOME. CM CALLED PATIENT PATHWAYS COORDINATOR MARTA MORAELZ, LEFT MESSAGE WITH PT'S PRIMARY DOCTOR'S NAME, DR. LUONG. CM SPOKE TO ROXANNA OF [facility] INPAT[facility] WHO REPORTS PT NEEDS OT EVALUATION FOR REHAB TO SEND REQUEST FOR AUTHORIZATION FROM [employer], PT'S INSURANCE. CM CALLED SURINDER, RENAL NURSE, OBTAINED ORDER FOR OCCUPATIONAL THERAPY EVALUATION FOR REHAB AUTHORIZATION. CM WAITING COMPLETION AND DOCUMENTATION OF OCCUPATIONAL THERAPY EVALUATION FOR [place] [place] TO COMPLETE INPATIENT REHAB PRESCREENING AND SEND FOR INSURANCE AUTHORIZATION IF APPROPRIATE. Issa Bennett, CASE MANAGEMENT
--- NOTE | 2016-09-07 19:15 | NUR ---
RECEIVED REPORT, ON ROOMAIR, IV-L. HAND, R. CHEST HEMOSPLIT, GUADALUPE CATH, ON IST OVERLAY MATTRESS, DRESSING TO L. HEEL, MEPLEX TO BOTTOM, BED IS LOW, SRX3, BED ALARM IS ON, CALL LIGHT IN REACH, PT DENIES ANY NEEDS AT THIS TIME, WILL CONTINUE PLAN OF CARE
[2016-09-07 20:00] VITALS: BP 129/70
[2016-09-08] VITALS: BP 126/67
--- NOTE | 2016-09-08 01:07 | NUR ---
HELPED ESSIE FRANKEL REPOSITION PT TO L. SIDE, FEET PROMPT UP ON 2 PILLOWS, CALL LIGHT IN REACH
[2016-09-08 04:00] VITALS: BP 153/72
[2016-09-08 04:58] LABS: BASOPHILS 0.1 % (0-2); EOSINOPHILS 0 % (0-7); HEMATOCRIT 32.8 % (36.0-48.0); HEMOGLOBIN 10.3 g/dL (12-16); IMMATURE GRANULOCYTES 0.7 % (0-5); LYMPHOCYTES 19.9 % (15-50); MCHC 31.4 g/dL (31.0-37.0); MCV 92.4 fL (80.0-100.0); MEAN PLATELET VOLUME 10.2 fL (7.4-10.4); MONOCYTES 9.9 % (2-11); NEUTROPHILS 69.4 % (40-80); PLATELET COUNT 229 10x3/uL (130-400); RBC 3.55 10x6/uL (4.00-5.40); WBC 9.7 10x3/uL (4.8-10.8)
[2016-09-08 05:10] LABS: ANION GAP 13.3 mmol/L (8-16); CALCIUM 8.5 mg/dL (8.5-10.1); CARBON DIOXIDE 27.6 mmol/L (21.0-32.0); POTASSIUM - SERUM 3.9 mmol/L (3.5-5.1)
[2016-09-08 05:11] LABS: CREATININE - SERUM 5.7 mg/dL (0.6-1.3)
--- NOTE | 2016-09-08 07:15 | NUR ---
PT SITTING UP IN BED SLEEPING RR EVEN AND UNLABORED NO S/S DISTRESS WILL CONT TO MONITOR
[2016-09-08 08:03] VITALS: BP 126/53
--- NOTE | 2016-09-08 09:13 | NUR ---
PT IS REFUSING FOR ME TO CHANGE LEFT HEEL DRESSING. ALSO REFUSING TO EAT AND TURN
[2016-09-08 11:48] VITALS: BP 133/71
--- NOTE | 2016-09-08 12:52 | NUR ---
PT WITH INC BM EPISODE. BM IS STILL DIARRHEA AND SEEDY LIGHT BROWN. LARGE AMOUNT. PT WITH COMPLETE BATH AND LINEN CHANGE. PT HEMOSPLIT DRESSING WAS NOT ADHERED TO THE SKIN, COMPLETE DRESSING CHANGE DONE STERILE TECHNIQUE INITIATED. SIGNED AND DATED. BIOPATCH AND SWAB CAPS IN USE. ASKED PT AGAIN IF I COULD CHANGE DRESSING ON LEFT FOOT SHE IS STILL REFUSING IT. SAID THAT "IT HURTS TOO MUCH AND IF WE CHANGE IT IT WILL HURT MORE." I ASKED PT IF SHE WANTED A PAIN PILL ABOUT 30 MINS BEFORE DSNG CHANGE THEN MAYBE IT WOULDNT HURT BAD. PT STILL REFUSES. PT DID AGREE TO LET US TURN HER. DONE. WILL CONT TO MONITOR
--- NOTE | 2016-09-08 13:28 | NUR ---
CALLED REAL AND ASKED IF PT WOULD BE GOING TO DIALYZE TODAY. SHE WASNT DIALYZED YESTERDAY. REAL SAID SHE WOULD BE DONE TODAY.
--- NOTE | 2016-09-08 14:09 | NUR ---
Rehab has been waiting for the PT and OT eval's to be completed in order to submit a request to [facility] for rehab preauthorization on this patient. Both eval's have been completed, however the patient refused to participate. Based on her refusal to be evaluated by PT or OT she does not qualify for acute rehab at this time. The [facility] has been made aware, Hedy Vazquez RN Clinical Liaison, Rehab
[2016-09-08 15:38] VITALS: BP 131/68
--- NOTE | 2016-09-08 15:38 | NUR ---
NOTICED WHILE GETTING PAPERWORK READY FOR PT DIALYSIS THAT [place] CANCELLED FOR TODAY. CALLED AG MELTON APN AND SENT TEXT MESSAGE TO HER TO LET HER KNOW THAT PT WASN'T DONE YESTERDAY. SPOKE WITH PT AND SHE STATED THAT SHE SPOKE TO AG AND WASN'T GETTING DIALYSIS TODAY.
--- NOTE | 2016-09-08 15:40 | NUR ---
Patient Name: WESLEY SMITH Encounter No: [id number] : 1945 Primary Insurance: [employer] MEDICARE ADV Anticipated DC Date: TO BE DETERMINED Planned Disposition: Assisted Facility External Planned Provider: TO BE DETERMINED DCP follow-up note: CM RECEIVED CALL FROM ROXANNA OF [facility] IN[facility] WHO INFORMED CM THAT PT REFUSED TO PARTICIPATE IN PT AND OT ASSESSMENTS AND [employer], PT'S INSURANCE WILL NOT APPROVE INPATIENT REHAB WITH PT REFUSING THERAPY / EVALUATIONS. CM SPOKE TO PT IN ROOM, PT STATED SHE WOULD TRY HARDER TO DO MORE. CM DISCUSSED PRISON OR HOME HEALTH. PT DOES NOT WANT TO CONSIDER [facility] IN [place] AND WANTS TO TALK TO HER ABOUT GOING HOME WITH HIS HELP AND HOME HEALTH. CM EXPLAINED TO PT THAT SHE WILL NEED TO PARTICIPATE WITH THERAPY IN ORDER FOR CARE TEAM TO PLAN A SAFE DISCHARGE AND TO EVEN SEE IF IT IS POSSIBLE FOR PT TO HOME WITH FAMILY. CM ENCOURAGED PT TO LET CM SEND REFERRALS OUT TO PRISON FACILITY IN [place] TO ASSIST WITH REHAB PLACEMENT, PT REFUSED UNTIL SHE SPEAKS TO HER . CM WAITING PT AND FAMILY DECISION ON PRISON FACILITY FOR REHAB REFERRAL VS HOME WITH HOME HEALTH. Issa Bennett, CASE MANAGEMENT
--- NOTE | 2016-09-08 15:40 | NUR ---
REAL FROM DIALYSIS SAYS THAT THE ORDERS FROM DIALYSIS HAVE BEEN CANCELLED FOR TODAY. PT HAS NOT DIALYZED SINCE SUNDAY. CALLED MAT RENAL CURTAIN FRAMER, SHE SAID SHE WOULD CALL STEVEN IN DIALYSIS AND FIGURE OUT WHAT IS GOING ON.
--- NOTE | 2016-09-08 16:45 | NUR ---
OT NOTE: PT COMPLETED LUE PROM AND BUE FM SKILLS FOR INCREASED I WITH ADLS. PT COMPLETED GROOMING WITH KERA [place]. THANK YOU, GIDEON LLAMAS/Humble
--- NOTE | 2016-09-08 17:32 | NUR ---
TALKED WITH DR NATHAN ABOUT PT DIALYSIS. SAID TO CHANGED HER TO MWF. DONE. HE SAID THEY SHOULD BE UP TO DIALYZE HER TODAY. I HAVE CALLED 6 TIMES AND NO ANSWER
--- NOTE | 2016-09-08 18:05 | NUR ---
PT SITTING UP IN BED RECEIVING DIALYSIS DENIES NEEDS
[2016-09-08 20:00] VITALS: BP 133/72
[2016-09-09] VITALS: BP 163/72
--- NOTE | 2016-09-09 01:10 | NUR ---
ASSESSMENT COMPLETE, PT IS ON ROOM AIR, IV-L.HAND-SL, ISO-C-DIFF, R. CHEST HEMOSPLIT, GUADALUPE-NO OUTPUT, ON 1ST MATTRESS, DRESSING TO L. HEEL, BOTTOM-REDNESS, BED IS LOW, SRX2, CALL LIGHT IN REACH, WILL CONTINUE PLAN OF CARE
[2016-09-09 04:00] VITALS: BP 153/70
[2016-09-09 06:28] LABS: BASOPHILS 0.1 % (0-2); EOSINOPHILS 0 % (0-7); HEMATOCRIT 31.5 % (36.0-48.0); IMMATURE GRANULOCYTES 1.2 % (0-5); LYMPHOCYTES 23.4 % (15-50); MCH 29.4 pg (26.0-34.0); MCHC 31.7 g/dL (31.0-37.0); MCV 92.6 fL (80.0-100.0); MEAN PLATELET VOLUME 9.4 fL (7.4-10.4); MONOCYTES 12.7 % (2-11); NEUTROPHILS 62.6 % (40-80); PLATELET COUNT 196 10x3/uL (130-400); WBC 8.1 10x3/uL (4.8-10.8)
[2016-09-09 06:41] LABS: ANION GAP 13.3 mmol/L (8-16); CALCIUM 8.3 mg/dL (8.5-10.1); CARBON DIOXIDE 27.2 mmol/L (21.0-32.0); POTASSIUM - SERUM 3.5 mmol/L (3.5-5.1)
[2016-09-09 06:42] LABS: CREATININE - SERUM 3.8 mg/dL (0.6-1.3)
--- NOTE | 2016-09-09 07:15 | NUR ---
PT SITTING UP IN BED SLEEPING NO S/S DISTRESS NOTED WILL CONT TO MONITOR
[2016-09-09 08:00] VITALS: BP 131/70
--- NOTE | 2016-09-09 10:00 | NUR ---
PT DID GET ON THE SIDE OF THE BED WITH PHYSICAL THERAPY.
--- NOTE | 2016-09-09 11:13 | NUR ---
TALKED WITH OSWALDO BLACK ABOUT EGG CRATE FOR PT CHAIR. HE WILL BE BRING ONE UP SOON
[2016-09-09 12:00] VITALS: BP 115/61
[2016-09-09 16:00] VITALS: BP 115/63
--- NOTE | 2016-09-09 16:43 | NUR ---
PT FINALLY LET ME CHANGE HER LEFT FOOT DRESSING. CHANGED DRESSING PER ORDER. WOUND IS ON LEFT SIDE OF HEEL, NECROTIC/BLACK/UNSTAGEABLE WITH A FOUL SMELL TO IT.
--- NOTE | 2016-09-09 17:12 | NUR ---
HAVE TRIED TO WAKE PT UP FOR DINNER SEVERAL TIMES, PT SHRUGS ME OFF. PT SLEEPING WELL RR UNLABORED. WILL CONT TO MONITOR
--- NOTE | 2016-09-09 19:57 | NUR ---
INITIAL ROUNDS COMPLETED AT 1915 HRS. PT RESTING WITH EYES CLOSED. RESP EVEN AND REGUALR. ASSESSMENT COMPELTED AT 1950 HRS. PT REPOAITINED INBED FOR COMFORT AT THAT TIME. 5CM IN DIAMETER STAGE 3 NOTED TO R BUTTOCKS. CALOSEPTINE APPLIED. IV TO L HAND SL. R CHEST HEMOSPLIT CLEAN, DRY AND INTACT. LUNGS ESSENTIALLY CTA. PALPABLE PERIPERAL PULSES. DRESSING TO R FOOT CLEAN, DRY AND INTACT. PT ON 1ST STEP AIR OVERLAY MATTRESS. GUADALUPE WITH SCANT DARK URINE. WILL CONTINUE TO MONITOR. SR UP X2, CALL LIGHT WITHIN REACH.
[2016-09-09 20:00] VITALS: BP 115/56
--- NOTE | 2016-09-09 21:29 | NUR ---
PT AWAKE, CARLOS A ANY DISCOMFRT. WILL CONTINUE TO MONITOR.
[2016-09-10] VITALS: BP 153/73
--- NOTE | 2016-09-10 00:41 | NUR ---
REPOSITONED IN BED FOR COMFORT AT 0005 HRS. PT DENIED ANY DISCOMFORT. WILL CONTINUE TO MONITOR.
--- NOTE | 2016-09-10 01:47 | NUR ---
PT RESTING WITH EYES SCLOSED. RESP EVEN AND REGULAR. SR UP X2, CALL LIGHT WITHIN REACH.
--- NOTE | 2016-09-10 02:18 | NUR ---
PT RESTING WITH EYES CLOSED. RESP EVEN AND REGULAR. SR UP X2, CALL LIGHT WITHIN REACH.
[2016-09-10 04:00] VITALS: BP 146/79
--- NOTE | 2016-09-10 04:32 | NUR ---
PT INCONTINENT OF A SMALL AMOUNT OF SOFT STOOL. INCONTINENT CARE DONE. PT REPOSITIONED IN BED FOR COMFORT. WILL CONTINUE TO MONITOR. CALL LIGHT WITHIN REACH.
--- NOTE | 2016-09-10 05:49 | NUR ---
VSS THROUGHOUT NIGHT. PT DENIED ANY DISCOMFORT. NEEDS MET; WILL CONTINUE TO MONITOR.
[2016-09-10 06:57] LABS: BASOPHILS 0.1 % (0-2); EOSINOPHILS 0 % (0-7); LYMPHOCYTES 21.9 % (15-50); MCH 29.2 pg (26.0-34.0); MCHC 31.3 g/dL (31.0-37.0); MCV 93.6 fL (80.0-100.0); MEAN PLATELET VOLUME 9.9 fL (7.4-10.4); MONOCYTES 12.5 % (2-11); NEUTROPHILS 64.5 % (40-80); PLATELET COUNT 235 10x3/uL (130-400); RBC 3.42 10x6/uL (4.00-5.40); RDW 19.3 % (11.5-14.5); WBC 7.2 10x3/uL (4.8-10.8)
--- NOTE | 2016-09-10 07:00 | NUR ---
RECEIVED REPORT. ASSUMED CARE OF PATIENT. CALL LIGHT WITHIN REACH. PATIENT RESTING WITH EYES CLOSED. EASILY AROUSED. RESP EVEN AND UNLABORED. DENIES NEEDS. REMAINS IN CONTACT ISOLATION FOR CDT. NO DISTRESS.
[2016-09-10 07:28] LABS: ANION GAP 13.1 mmol/L (8-16); CALCIUM 8.6 mg/dL (8.5-10.1); CARBON DIOXIDE 28.1 mmol/L (21.0-32.0); POTASSIUM - SERUM 3.2 mmol/L (3.5-5.1)
[2016-09-10 07:31] LABS: CREATININE - SERUM 4.8 mg/dL (0.6-1.3)
[2016-09-10 08:00] VITALS: BP 141/75
--- NOTE | 2016-09-10 08:35 | NUR ---
IST STEP OVERLAY PATENT. CALL LIGHT WITHIN REACH. NO DISTRESS.
--- NOTE | 2016-09-10 09:44 | NUR ---
WOUND CARE PROVIDED TO NECROTIC AREA TO LEFT HEEL. STRONG ODOR NOTED FROM BLACK SOFT TISSUE ON HEEL. PADDED AND WRAPPED FOR PROTECTION. TOLERATED DRESSING WELL. AREA APPROX [id number]. ST2 TO BILATERAL BUTTOCKS. RIGHT APPROX 6X6, LEFT LOWER BUTTOCK 1X1. CALMOSEPTINE APPLIED. 1ST STEP PATENT. NO DISTRESS.
[2016-09-10 12:00] VITALS: BP 134/66
--- NOTE | 2016-09-10 13:00 | NUR ---
BED BATH COMPLETED, TURNED AND REPOSITIONED. FRESH H2O PROVIDED. NO DISTRESS. CALL LIGHT WITHIN REACH.
--- NOTE | 2016-09-10 18:04 | NUR ---
TURNED AND REPOSITIONED. DENIES NEEDS. CALL LIGHT WITHIN REACH. 1ST STEP REMAINS PATENT. NO DISTRESS.
--- NOTE | 2016-09-10 18:19 | NUR ---
RECEIVED NOTE FROM ANOTHER NURSE ON THE UNIT THAT PATIENT DAUGHTER BY THE NAME OF ASIF CALLED TO CHECK ON HER, WANTING INFORMATION. ASIF IS NOT LISTED ON THE PATIENTS FACESHEET A PERSON TO CONTACT OR TO GIVE ANY INFORMATION TO HER. THIS PERSONS CALL WAS NOT RETURNED AT THIS TIME.
--- NOTE | 2016-09-10 19:42 | NUR ---
RESUMED CARE OF PT, LYING IN BED WITH EYES CLOSED RESPIRATIONS EVEN AND UNLABORED ON ROOM AIR. GUADALUPE TO GRAVITY AND 1ST STEP OVERLAY MATTRESS INFLATED. CALL LIGHT IN REACH. NO NEEDS NOTED AT THIS TIME. WILL CONTINUE TO MONITOR. SEE NURSE ASSESSMENT.
[2016-09-10 20:00] VITALS: BP 146/74
[2016-09-11] VITALS: BP 133/75
--- NOTE | 2016-09-11 02:45 | NUR ---
REPOSITIONED FOR COMFORT TO LEFT SIDE. CALL LIGHT IN REACH. WILL CONTINUE TO MONITOR.
[2016-09-11 04:00] VITALS: BP 140/69
--- NOTE | 2016-09-11 04:13 | NUR ---
BED BATH AND LINENS CHANGED, CLEANED INCONTINENT EPISODE UP AND GUADALUPE CARE GIVEN.
[2016-09-11 05:44] LABS: BASOPHILS 0.1 % (0-2); EOSINOPHILS 0 % (0-7); HEMATOCRIT 32.6 % (36.0-48.0); HEMOGLOBIN 10.3 g/dL (12-16); IMMATURE GRANULOCYTES 0.8 % (0-5); LYMPHOCYTES 24.9 % (15-50); MCH 29.4 pg (26.0-34.0); MCHC 31.6 g/dL (31.0-37.0); MCV 93.1 fL (80.0-100.0); MEAN PLATELET VOLUME 9.5 fL (7.4-10.4); MONOCYTES 12.4 % (2-11); NEUTROPHILS 61.8 % (40-80); PLATELET COUNT 209 10x3/uL (130-400); RDW 18.8 % (11.5-14.5); WBC 7.5 10x3/uL (4.8-10.8)
[2016-09-11 06:01] LABS: ANION GAP 12.5 mmol/L (8-16); CALCIUM 8.7 mg/dL (8.5-10.1); CARBON DIOXIDE 27.7 mmol/L (21.0-32.0); CREATININE - SERUM 5.6 mg/dL (0.6-1.3); POTASSIUM - SERUM 4.2 mmol/L (3.5-5.1)
--- NOTE | 2016-09-11 06:08 | NUR ---
NO CHANGES FROM PREVIOUS ASSESSMENT, CALL LIGHT IN REACH.
--- NOTE | 2016-09-11 07:21 | NUR ---
ASSESSMENT COMPLETED. ALERT AND ORIENTED. PT IS ON BEDREST. IV TO LEFT HAND SL. REDDNESS TO BUTTOCKS, CALOSEPTMINE APPLIED. DRSG TO LEFT HEEL. ON 1ST STEP AIR OVERLAY. RIGHT CHEST HEMOSPLIT. GUADALUPE CATH PATENT TO BEDSIDE GRAVITY BAG. WILL MONITOR
[2016-09-11 09:30] VITALS: BP 142/68
--- NOTE | 2016-09-11 10:04 | NUR ---
RESTING QUIETLY NAD NOTED
[2016-09-11 12:23] VITALS: BP 160/59
--- NOTE | 2016-09-11 12:40 | NUR ---
PT HAVING DIALYSIS. DENIES ANY NEEDS. CALL LIGHT IN REACH WITH SR UP. WILL MONITOR
[2016-09-11 17:06] VITALS: BP 149/60
--- NOTE | 2016-09-11 17:52 | NUR ---
REPOSITIONED FOR COMFORT. DENIES ANY NEEDS. CALL LIGHT IN REACH WITH SR UP. ON 1ST STEP BED. WILL MONITOR
--- NOTE | 2016-09-11 19:34 | NUR ---
RESUMED CARE OF PT, LYING IN BED RESPIRATIONS EVEN AND UNLABORED ON ROOM AIR. ULTRACET 2 TABS GIVEN FOR PAIN 8:10. GUADALUPE TO GRAVITY, 1ST STEP OVERLAY INFLATED. HEELS BRIDGED AND LEFT FOOT DRESSING C/D/I. LEFT HAND IS SALINE LOCKED AND RIGHT CHEST HEMOSPLIT WNL. CALL LIGHT IN REACH, WILL CONTINUE TO MONITOR. SEE NURSE ASSESSMENT.
[2016-09-11 20:33] VITALS: BP 127/59
--- NOTE | 2016-09-11 21:30 | NUR ---
BED BATH AND LINENS CHANGED. MEPILEX DRESSING APPLIED TO BOTTOM.
--- NOTE | 2016-09-12 01:44 | NUR ---
REPOSITIONED FOR COMFORT.
[2016-09-12 01:51] VITALS: BP 123/64
[2016-09-12 05:17] LABS: BASOPHILS 0.2 % (0-2); EOSINOPHILS 0 % (0-7); HEMATOCRIT 34.2 % (36.0-48.0); IMMATURE GRANULOCYTES 0.9 % (0-5); LYMPHOCYTES 24.8 % (15-50); MCHC 32.2 g/dL (31.0-37.0); MCV 93.2 fL (80.0-100.0); MEAN PLATELET VOLUME 9.8 fL (7.4-10.4); MONOCYTES 13.4 % (2-11); NEUTROPHILS 60.7 % (40-80); PLATELET COUNT 220 10x3/uL (130-400); RBC 3.67 10x6/uL (4.00-5.40); RDW 18.8 % (11.5-14.5)
[2016-09-12 05:24] LABS: WBC 9.5 10x3/uL (4.8-10.8)
[2016-09-12 05:48] VITALS: BP 121/63
--- NOTE | 2016-09-12 06:10 | NUR ---
NO CHANGES FROM PREVIOUS ASSESSMENT. CALL LIGHT IN REACH.
[2016-09-12 06:17] LABS: ANION GAP 13.5 mmol/L (8-16); CALCIUM 8.8 mg/dL (8.5-10.1); CARBON DIOXIDE 27.9 mmol/L (21.0-32.0)
[2016-09-12 06:20] LABS: CREATININE - SERUM 3.8 mg/dL (0.6-1.3); POTASSIUM - SERUM 3.4 mmol/L (3.5-5.1)
--- NOTE | 2016-09-12 07:55 | NUR ---
AM ROUNDING DONE WITH PATIENT APPEARING TO BE ASLEEP, LAYING ON RIGHT SIDE. RESP EVEN AND NON LABORED. IN ISOLATION. ON ROOM AIR. WAS TOLD IN REPORT THAT PATIENT HAS A RIGHT HEMISPLT, WILL ASSESS. CPOC.
[2016-09-12 08:00] VITALS: BP 174/103
[2016-09-12 10:18] LABS: MAGNESIUM - SERUM 1.9 mg/dL (1.8-2.4)
--- NOTE | 2016-09-12 11:00 | NUR ---
Patient Name: WESLEY SMITH Encounter No: [id number] : 1945 Primary Insurance: [employer] MEDICARE ADV Anticipated DC Date: Planned Disposition: Detention Facility External Planned Provider: [facility], MEDICARE REHAB BED DCP follow-up note: CM SPOKE TO PT IN ROOM REGARDING DISCHARGE PLANNING AND NEEDS. PT REPORTS DISCUSSING WITH FAMILY AND PLAN TO GO TO [facility]; PT REPORTS SHE IS PARTICIPATING IN REHAB SO SHE CAN GO TO REHAB. CM SPOKE TO RENAL NURSE AND FAXED UPDATED REFERRAL WITH THERAPY NOTES TO [facility] IN [place], . CM WAITING ADMISSION DETERMINATION AND INSURANCE AUTHORIZATION FROM [facility] AND PT'S INSURANCE (MANAGED MEDICARE). Issa Bennett, CASE MANAGEMENT
--- NOTE | 2016-09-12 11:19 | NUR ---
DIALYSIS COORDINATOR: PATHWAYS: Confirmation of acceptance to [facility] dialysis unit [facility] D[facility] on a Sunday//Sunday @ 11:00am. Patient cannot start on a Sunday. Hedy DUEÑAS has been notified. Welcome Letter sent to CM. to give to the patient. HAMZAH HARRELL.
[2016-09-12 11:54] VITALS: BP 124/76
--- NOTE | 2016-09-12 13:42 | NUR ---
Patient Name: WESLEY SMITH Encounter No: [id number] : 1945 Primary Insurance: [employer] MEDICARE ADV Anticipated DC Date: Planned Disposition: Senior Care Facility External Planned Provider: [facility], MEDICARE REHAB BED DCP follow-up note: CM SPOKE TO MARTA MORALEZ, PATIENT PATHWAYS COORDINATOR, RECEIVED WELCOME LETTER FOR PT'S OUTPATIENT DIALYSIS AT [facility], T//, 1100 AM, FIRST APPT 1045AM. CM PROVIDED PT WITH WELCOME LETTER AND PATIENT PATHWAYS NAVIGATOR BOOKLET. CM SPOKE TO GRAYSON AT [facility] WHO WILL SUMBMIT REFERRAL TO INSURANCE AND WOULD LIKE UPDATED INFORMATION ON CDIFF TESTING AND TREATMENT WHEN RECEIVED. CM WAITING INSURANCE AUTHORIZATION FROM PT'S INSURANCE FOR REHAB AT [facility]. CM TO FAX UPDATED INFORMATION ON C-DIFF TESTING AND TREATMENT WHEN RECEIVED/DOCUMENTED. Issa Bennett, CASE MANAGEMENT
--- NOTE | 2016-09-12 13:45 | NUR ---
Nutrition follow-up: Diet: Regular soft; just advanced from full liquids PO intake very poor at this time +BM, diarrhea No new wt to assess since admit Will provide food choices with selective menus and honor food preferences RDN will order Nepro with meals to increase kcal, protein intake. RDN following.
--- NOTE | 2016-09-12 13:57 | NUR ---
1345-GUADALUPE CATH REMOVED PAST BULB DEFLATION ORDERED. PATIENT IS ON DIALYSIS AND DOES NOT MAKE VERY MUCH URINE, WILL MONITOR THIS.
[2016-09-12 16:00] VITALS: BP 151/99
--- NOTE | 2016-09-12 16:34 | NUR ---
PATIENT HAS BEEN SLEEPING MOST OF THE DAY OFF AND ON. WILL HAVE DIALYSIS TOMORROW SCHEDULED. STILL IN ENTERIC ISOLATION. WILL CPOC.
--- NOTE | 2016-09-12 19:20 | NUR ---
AWAKE/ALERT IN CONTACT ISOLATION FOR CDIF. REQUESTED MORE WATER. MOTORCYCLE MECHANIC APPRENTICE PRESENT IN ROOM TAKING VS. IV IN L HAND INTACT SL. DRSG TO LEFT HEEL C/D/I. RATES PAIN LEVEL "ALL OVER" AT 7, DESCRIBED ACHING. ORIENTED TO CALL LIGHT FOR ANY NEEDS.
[2016-09-12 21:21] VITALS: BP 144/82
--- NOTE | 2016-09-12 21:30 | NUR ---
ADMIN SCHED FLAGYL PO AND TRAMADOL PO FOR C/O PAIN.
--- NOTE | 2016-09-13 00:30 | NUR ---
AWAKE AND DENIES ANY NEEDS OR DISCOMFORTS.
--- NOTE | 2016-09-13 04:47 | NUR ---
REQUESTED PALOMO CRACKERS AND APPLEJUICE. MEDICAL SONOGRAPHER FINISHED GIVEN BATH.
[2016-09-13 04:59] VITALS: BP 144/88
[2016-09-13 06:25] LABS: ANION GAP 12.7 mmol/L (8-16); CALCIUM 8.5 mg/dL (8.5-10.1); CARBON DIOXIDE 29.3 mmol/L (21.0-32.0)
[2016-09-13 06:34] LABS: CREATININE - SERUM 4.8 mg/dL (0.6-1.3)
[2016-09-13 06:36] LABS: BASOPHILS 0.3 % (0-2); EOSINOPHILS 0.1 % (0-7); HEMATOCRIT 35.4 % (36.0-48.0); HEMOGLOBIN 10.9 g/dL (12-16); IMMATURE GRANULOCYTES 1.1 % (0-5); LYMPHOCYTES 16.2 % (15-50); MCH 29.2 pg (26.0-34.0); MCHC 30.8 g/dL (31.0-37.0); MCV 94.9 fL (80.0-100.0); MEAN PLATELET VOLUME 9.7 fL (7.4-10.4); MONOCYTES 11.3 % (2-11); RBC 3.73 10x6/uL (4.00-5.40); RDW 18.8 % (11.5-14.5); WBC 9.5 10x3/uL (4.8-10.8)
[2016-09-13 06:44] LABS: PLATELET COUNT 168 10x3/uL (130-400)
[2016-09-13 08:00] VITALS: BP 142/81
--- NOTE | 2016-09-13 08:57 | NUR ---
ASSESSMENT DONE. REFUSES ALL MEDICATIONS. WILL GIVE NO REASONING WHEN ASKED WHY SHE IS REFUSING MEDS
--- NOTE | 2016-09-13 11:19 | NUR ---
Patient Name: WESLEY SMITH Encounter No: [id number] : 1945 Primary Insurance: [employer] MEDICARE ADV Anticipated DC Date: Planned Disposition: Senior Living Facility External Planned Provider: [facility], MEDICARE REHAB BED DCP follow-up note: CM FAXED UPDATE TO GRAYSON AT [facility], FOR SUBMISSION TO INSURANCE FOR REHAB APPROVAL/AUTHORIZATION. DAVID WILL NEED CDIFF TESTING RESULT WHEN RECEIVED. BERE WAITING INSURANCE AUTHORIZATION FROM PT'S INSURANCE FOR REHAB AT [facility]. CM TO FAX UPDATED INFORMATION ON C-DIFF TESTING WHEN RECEIVED/DOCUMENTED. Issa Bennett, CASE MANAGEMENT
--- NOTE | 2016-09-13 11:37 | NUR ---
C/O NAUSEA WHEN TRYING TO EAT - ZOFRAN GIVEN - FAMILY AT BEDSIDE
--- NOTE | 2016-09-13 11:49 | NUR ---
UNABLE TO GET ACCURATE B/P BECAUSE PT WILL NOT SIT STILL OR LET MANAGEMENT ADVISOR PUT CUFF ON
--- NOTE | 2016-09-13 12:20 | NUR ---
UP IN CHAIR - C/O PAIN L FOOT 09/23 - FAMILY AT BEDSIDE
--- NOTE | 2016-09-13 12:34 | NUR ---
PAIN MEDS GIVEN - REQUEST BACK TO BED - PT NOTIFIED
[2016-09-13 15:44] VITALS: BP 109/59
--- NOTE | 2016-09-13 17:13 | NUR ---
Mrs. Miller had bedside hemodialysis today via her right chest hemosplit from 1420 until 1700. Average blood flow was 300-350 mls/minute. Net fluid removed was only 153 mls. Every time I tried to increase her fluid goal she continued to drop her blood pressue. Post vital signs were: B/P: 141/78, HR: 69, Temp: 16, Resps: 16. Very hypotensive during treatment.
[2016-09-13 19:00] VITALS: BP 139/58
--- NOTE | 2016-09-13 19:21 | NUR ---
RECEIVED REPORT, PT SLEEPING, BED IS LOW, SRX2 ON 1ST MATTRESS, BANDAGE TO L. FOOT, MEPLEX TO BOTTOM, IV-L. HAND-SL, R. CHEST HEMOSPLIT, IS ON ISO- C-DIFF, BED IE LOW, SRX2, CALL LIGHT IN REACH, WILL CONTINUE PLAN OF CARE
[2016-09-14] VITALS: BP 134/72
--- NOTE | 2016-09-14 01:37 | NUR ---
ASSESSMENT COMPLETE, SEE FLOWSHEET, PT SLEEPING, CALL LIGHT IN REACH,BED IS LOW, SRX2,BED ALARM ON, WILL CONTINUE PLAN OF CARE
--- NOTE | 2016-09-14 03:36 | NUR ---
COVER MAT MACHINE OPERATOR AT BEDSIDE TO OBTAIN VITALS, WILL CONTINUE WITH PLAN OF CARE.
[2016-09-14 04:00] VITALS: BP 142/64
[2016-09-14 06:08] LABS: CALCIUM 8.6 mg/dL (8.5-10.1); CARBON DIOXIDE 28.5 mmol/L (21.0-32.0); CREATININE - SERUM 3.8 mg/dL (0.6-1.3); POTASSIUM - SERUM 3.5 mmol/L (3.5-5.1)
[2016-09-14 06:48] LABS: BASOPHILS 0.2 % (0-2); EOSINOPHILS 0 % (0-7); HEMATOCRIT 39.2 % (36.0-48.0); HEMOGLOBIN 12.3 g/dL (12-16); IMMATURE GRANULOCYTES 0.8 % (0-5); LYMPHOCYTES 20.6 % (15-50); MCH 29.2 pg (26.0-34.0); MCHC 31.4 g/dL (31.0-37.0); MCV 93.1 fL (80.0-100.0); MEAN PLATELET VOLUME 10.1 fL (7.4-10.4); MONOCYTES 7.8 % (2-11); NEUTROPHILS 70.6 % (40-80); RBC 4.21 10x6/uL (4.00-5.40); RDW 18.9 % (11.5-14.5); WBC 10.7 10x3/uL (4.8-10.8)
[2016-09-14 06:49] LABS: PLATELET COUNT 125 10x3/uL (130-400)
--- NOTE | 2016-09-14 07:41 | NUR ---
AM ROUNDING- RECEIVED REPORT FROM CUTTING AND CREASING PRESS OPERATOR NURSE REAL. PT IS CURRENTLY LAYING IN BED ON LEFT SIDE WITH EYES CLOSED RESTING. IN ENTERIC ISOLATION FOR C.DIFF. IV SEEN TO LEFT HAND THAT IS CURRENTLY SALINE LOCKED. RIGHT CHEST HEMOSPLIT SEEN (PT DIALYZES ON M, W, AND F). ON FIRST STEP OVERLAY MATTRESS. NO NEED AT CURRENT TIME. WILL CONTINUE TO MONITOR AND CONTINUE WITH PLAN OF CARE.
[2016-09-14 08:22] VITALS: BP 140/76
--- NOTE | 2016-09-14 11:49 | NUR ---
Patient Name: WESLEY SMITH Encounter No: [id number] : 1945 Primary Insurance: WELLCARE MEDICARE ADV Anticipated DC Date: Planned Disposition: [facility] Facility External Planned Provider: [facility], MEDICARE REHAB BED DCP follow-up note: CM CALLED GRAYSON AT [facility] , , TO CHECK ON INSURANCE AUTH STATUS AND PROVIDE PT UPDATE. GRAYSON REPORTS THEY ARE NOT ABLE TO ACCEPT PT, THEY DO NOT HAVE AVAILABILITY OF TRAIN OPERATIONS SUPERVISOR TO GET PT TO AND FROM DIALYSIS ON SATURDAYS. CM CALLED MARTA OF [facility], WAS ADVISED NO MWF SCHEDULE AVAILABLE IN [place] AT THIS TIME; MARTA TO CALL DIALYSIS CENTER TO MAKE SURE. CM TO EXPLORE OTHER [facility] FACILITIES IN [place] FOR REHAB PLACEMENT. CM CALLED AND SPOKE TO PT'S LISTED EMERGENCY CONTACT, FLORENTINO CHAVARRIA, , DISCUSSED DECLINATION BY [facility] AND OTHER OPTIONS IN [place]. FLORENTINO REFUSED REFERRALS TO [facility] AND [facility] IN [place]. FLORENTINO REQUESTED REFERRAL BE SENT TO [facility]. CM CALLED [facility], , SPOKE TO DONG WHO WILL CHECK TO SEE IF THE FACILITY IS IN NETWORK WITH PT'S INSURANCE. CM FAXED FACE SHEET TO [phone]. CM WAITING ON [facility] TO DETERMINE IF THEY ARE IN NETWORK WITH PT'S INSURANCE AND IF THEY CAN PROVIDE TRANSPORT TO AND FROM DIALYSIS ON SATURDAYS. Issa Bennett, CASE MANAGEMENT
--- NOTE | 2016-09-14 12:20 | NUR ---
PT IN ROOM WITH PT NOW TRYING TO GET PT UP TO CHAIR. PT IS REFUSING. I INFORMED PT THAT SHE NEEDS TO GET UP OUT OF BED TO START BUILDING HER STRENGTH BACK UP AND TO RELIEVE PRESSURE OFF OF HER BUTTOCK. PT AGREES. BRIAN WITH PHYSCIAL THERAPY COMES AND STATES TO ME THAT PT IS REFUSING AGAIN. PT STATES "I JUST DON'T FEEL LIKE GETTING UP TODAY". PT STATES " I ALMOST FELL OUT OF THE CHAIR YESTERDAY WHEN I WAS UP". WILL CONTINUE TO MONITOR.
[2016-09-14 12:26] VITALS: BP 138/79
--- NOTE | 2016-09-14 13:00 | NUR ---
CALLED INTO ROOM FOR PT REQUESTING TO BE TURNED ON SIDE. TURNED PT ON RIGHT SIDE.
[2016-09-14 16:30] VITALS: BP 132/70
--- NOTE | 2016-09-14 17:09 | NUR ---
DIALYSIS COORDINATOR: [facility]: Updated chair time has been given for patient's [facility] bridges. [facility] Dialysis Tues/Th/Sat @ 11:45am. Updated Welcome Letter faxed to Obi [facility] [place].
--- NOTE | 2016-09-14 18:50 | NUR ---
PT IS CURRENTLY LAYING IN BED ON BACK WITH EYES OPEN RESTING. JUST RECEIVED BED BATH FROM ESSIE GUZMAN. NO NEED AT CURRENT TIME. WILL CONTINUE TO MONITOR.
[2016-09-14 19:00] VITALS: BP 122/60
--- NOTE | 2016-09-14 19:40 | NUR ---
ALERT/ORIENTED STATED "NO" TO INQUIRY ABOUT PAIN OR ANY NEEDS. IN ENTERIC ISOLATION FOR CDIF. IV IN L HAND INTACT SL. RIGHT CHEST HEMESPLIT DRSG C/D/I. ORIENTED TO CALL LIGHT FOR ANY NEEDS.
[2016-09-15] VITALS: BP 136/75
--- NOTE | 2016-09-15 00:30 | NUR ---
REQUESTED MORE ICE WATER. NO OTHER NEEDS VOICED.
--- NOTE | 2016-09-15 02:58 | NUR ---
RESTING QUIETLY WITH EYES CLOSED. RR 18 EVEN U/L. NO S/S OF DISTRESS OR DISCOMFORT. CL IN REACH.
[2016-09-15 04:00] VITALS: BP 115/54
--- NOTE | 2016-09-15 04:30 | NUR ---
SHIP RUNNER'S CLEANING FOR INCONTINENCE OF STOOL. NO OTHER NEEDS VOICED.
[2016-09-15 04:55] LABS: BASOPHILS 0.2 % (0-2); EOSINOPHILS 0 % (0-7); HEMATOCRIT 32.8 % (36.0-48.0); HEMOGLOBIN 10.4 g/dL (12-16); IMMATURE GRANULOCYTES 1.4 % (0-5); LYMPHOCYTES 25.7 % (15-50); MCH 29.4 pg (26.0-34.0); MCHC 31.7 g/dL (31.0-37.0); MCV 92.7 fL (80.0-100.0); MEAN PLATELET VOLUME 9.8 fL (7.4-10.4); MONOCYTES 10.4 % (2-11); NEUTROPHILS 62.3 % (40-80); RBC 3.54 10x6/uL (4.00-5.40); RDW 19.1 % (11.5-14.5); WBC 8.9 10x3/uL (4.8-10.8)
[2016-09-15 04:57] LABS: PLATELET COUNT 183 10x3/uL (130-400)
[2016-09-15 05:08] LABS: ANION GAP 15.4 mmol/L (8-16); CALCIUM 8.9 mg/dL (8.5-10.1); CARBON DIOXIDE 26.2 mmol/L (21.0-32.0); POTASSIUM - SERUM 3.6 mmol/L (3.5-5.1)
--- NOTE | 2016-09-15 07:29 | NUR ---
AM ROUNDING- RECEIVED REPORT FROM SAAS ARCHITECT NURSE ANAND. PT IS CURRENTLY LAYING IN BED ON RIGHT SIDE WITH EYES CLOSED RESTING. IN ENTERIC ISOLATION FOR C.DIFF. ON FIRST STEP OVERLAY MATTRESS. ON ROOM AIR. NO MONITOR. IV SEEN TO LEFT HAND THAT IS CURRENTLY SALINE LOCKED. RIGHT CHEST HEMOSPLIT SEEN FOR DIALYSIS (PT DIALYZES ON M, W, AND F). NO NEED AT CURRENT TIME. WILL CONTINUE TO MONITOR AND CONTINUE WITH PLAN OF CARE.
--- NOTE | 2016-09-15 07:46 | NUR ---
Patient Name: WESLEY SMITH Encounter No: [id number] : 1945 Primary Insurance: WELLCARE MEDICARE ADV Anticipated DC Date: Planned Disposition: [facility] Facility External Planned Provider: [facility], MEDICARE REHAB BED DCP follow-up note: CM FAXED REFERRAL UPDATE TO [facility], . CM REVIEWED CHART, PT REFUSED THERAPY YESTERDAY. CM MET WITH PT WHO REPORTS TO BE IN AGREEMENT WITH REHAB PLACEMENT. CM CAUTIONED PT THAT HER INSURANCE WILL NOT PAY FOR REHAB SERVICES IF PT IS REFUSING AND ENCOURAGED PT TO PARTICIPATE WITH THERAPY EVERY DAY. IMPORTANT MESSAGE FROM MEDICARE PROVIDED AND EXPLAINED. CM WAITING ON [facility] TO DETERMINE IF THEY ARE IN NETWORK WITH PT'S INSURANCE AND IF THEY CAN PROVIDE TRANSPORT TO AND FROM DIALYSIS ON SATURDAYS. Issa Bennett, CASE MANAGEMENT
[2016-09-15 07:56] VITALS: BP 123/79
--- NOTE | 2016-09-15 10:16 | NUR ---
Patient Name: WESLEY SMITH Encounter No: [id number] : 1945 Primary Insurance: WELLCARE MEDICARE ADV Anticipated DC Date: Planned Disposition: Shelter Facility External Planned Provider: [facility] DCP follow-up note: CM MET WITH PT AND NURSE IN ROOM. PT HAS BEEN UP IN CHAIR FOR 15 MINUTES AND REQUESTS TO GO BACK TO BED. CM PROVIDED AND DISCUSSED OUTPATIENT DIALYSIS WELCOME LETTER: PT SCHEDULED FOR [facility], TTS, 1145AM, ARRIVAL TIME 1130AM, FIRST APPOINTMENT ON SUNDAY OR SUNDAY AT 1115AM. PT MAINTAINS SHE WANTS TO GO TO REHAB AT [facility] AND REH WITH GOAL TO GO HOME AND UNDERSTANDS THAT SHE IS GOING TO HAVE TO BE ABLE TO ASSIST WITH TRANSFERS AND SIT IN CHAIR FOR DIALYSIS AT OUTPATIENT UNIT. PT DOES NOT WANT TO STOP DIALYSIS, HOSPICE CARE OR GROUP HOME CARE IN A [facility]. CM LEFT PT WITH BEDSIDE NURSE WHO IS TRYING TO MAKE PT MORE COMFORTABLE IN CHAIR. CM WAITING CALL FROM [facility] REGARDING NETWORK STATUS WITH PT'S INSURANCE AN ADMISSION DETERMINATION. Issa Bennett, CASE MANAGEMENT
--- NOTE | 2016-09-15 10:58 | NUR ---
THERAPY GOT PT BACK TO BED.
--- NOTE | 2016-09-15 12:15 | NUR ---
1015- THERAPY GOT PT UP TO CHAIR. SITTING AT THE NURSES STATION (PTS ROOM IS ACROSS FROM NURSES STATION) I HEAR PT YELLING FROM ROOM. WENT TO CHECK ON PT AND PT STATES SHE DOES NOT WANT TO SIT IN CHAIR ANYMORE AND WANTS TO GO BACK TO BED. INSTRUCTED PT THAT IT IS IMPORTANT FOR HER TO GET OUT OF THE BED FOR A LITTLE WHILE TO GET PRESSURE OF HER BACK SIDE. DEV BARTON, SEAMING INSPECTOR IN ROOM WITH ME ENCOURAGING PT TO STAY IN CHAIR. PLACED EGG CRATE UNDER PTS BOTTOM IN CHAIR FOR MORE COMFORT. CALL LIGHT PLACED IN PTS REACH AND BED BOX ALARM ATTATCHED TO PT. 1030- ELLI UMANA CHECKED ON PT. PT IS SITTING UP IN CHAIR WANTING TO GET BACK IN BED. ELLI UMANA INSTRUCTED PT TO STAY IN CHAIR FOR A LITTLE WHILE. WILL CONTINUE TO MONITOR. 1032- I CHECK ON PT. PT IS SITTING UP IN CHAIR WITH EYES CLOSED RESTING. WILL CONTINUE TO MONITOR.
[2016-09-15 12:44] VITALS: BP 148/50
--- NOTE | 2016-09-15 12:55 | NUR ---
CHANGED PTS DRESSING TO LEFT HEEL AREA. WITH ASSISTANCE FROM ELLI UMANA. PTS WOUND BED IS WHAT APPEARS TO NECROTIC TISSUE. SLIGHT BLEEDING SEEN TO ONE SIDE OF WOUND. ODOR IS PRESENT. CLEANED WOUND BED WITH WOUND CLEANSER AND 4X4 GAUZE PADS. COVERED SITE WITH ABD PAD AND WRAPPED WITH KERLIX.
--- NOTE | 2016-09-15 12:59 | OP ---
PATIENT NAME: WESLEY SMITH MEDICAL RECORD: [id number] :[birth year] LOCATION:D.M2 D.2101 ADMISSION DATE:08/31/16 SURGEON: JOEL HERNANDEZ MD DATE OF OPERATION: 08/31/2016 DATE OF OPERATION: 08/31/2016 PREOPERATIVE DIAGNOSES: 1. Odhfm-fr-rrhwnch renal failure. 2. Diabetes mellitus. 3. Coronary artery disease. POSTOPERATIVE DIAGNOSES: 1. Vtwsj-gv-kiefnbw renal failure. 2. Diabetes mellitus. 3. Coronary artery disease. PROCEDURE: Right IJ 12-1/2cm Trialysis catheter placement. SURGEON: Joel Hernandez MD. REPORT OF PROCEDURE: The patient's right neck was prepped and draped in sterile fashion, 5 cc of 1% lidocaine was infused into the subcutaneous tissues. Under ultrasound guidance, a needle was used to cannulate the right internal jugular vein. The guidewire was advanced with ease. Over this wire, a dilator was placed followed by the Trialysis catheter. The catheter aspirated nonpulsatile dark blood and flushed easily with normal saline. This was sutured into place with 4-0 nylons and dressed appropriately. COMPLICATIONS: None. CONDITION: Stable. ANESTHESIA: Local. BLOOD LOSS: Minimal. Procedure done at the bedside. TRANSINT:[id number] Voice Confirmation ID: [id number] DOCUMENT ID: [id number] JOEL HERNANDEZ MD at 1259 CC: [id number] DICTATION DATE: 08/31/16 174 PRIMARY TEACHER: 09/01/16 0100 ADM IN [place] [id number] [place] [address]
--- NOTE | 2016-09-15 18:17 | NUR ---
PT IS LAYING IN BED ON BACK WITH EYES OPEN RESTING. DIALYSIS JUST GONE DONE IN ROOM. REPOSITIONED PT TO MAKE HER MORE COMFORTABLE AND ENCOURAGED PT TO EAT DINNER. NO NEED AT CURRENT TIME. WILL CONTINUE TO MONITOR.
--- NOTE | 2016-09-15 19:30 | NUR ---
RECEIVED REPORT, ISO-C-DIFF, ON ROOM AIR,IV-L.HAND, DIALYSIS-MOM, WED, FRI, R. CHEST HEMOSPLIT, DRESSING TO L. FOOT, MEPLEX-BOTTOM, IST MATTRESS, BED IS LOW, SRX2, BOX ALARM ON, CALL LIGHT IN REACH.
--- NOTE | 2016-09-15 20:00 | NUR ---
EXPLAIN TO PT, SHE NEEDS TO USE CALL LIGHT WHEN NEEDING SOMETHING, WHEN SHE YELLS SHE IS DISTURBING OTHER PT,
[2016-09-16 00:08] VITALS: BP 134/71
--- NOTE | 2016-09-16 02:26 | NUR ---
PT RESTING WELL WITHOUT C/O OR DISTRESS NOTED. NO NEEDS VOICED. CALL LIGHTS WITHIN REACH. WILL CONT TO MONITOR.
--- NOTE | 2016-09-16 02:56 | NUR ---
ASSESSMENT COMPLETE, SEE FLOWSHEET, PT SLEEPING, CALL LIGHT IN REACH, BED IS LOW, SRX2, BOX ALARM ON, WILL MONITOR
[2016-09-16 04:00] VITALS: BP 118/81
[2016-09-16 06:14] LABS: BASOPHILS 0.3 % (0-2); EOSINOPHILS 0 % (0-7); HEMATOCRIT 32.8 % (36.0-48.0); HEMOGLOBIN 10.4 g/dL (12-16); IMMATURE GRANULOCYTES 2.7 % (0-5); LYMPHOCYTES 26.7 % (15-50); MCH 29.5 pg (26.0-34.0); MCHC 31.7 g/dL (31.0-37.0); MCV 92.9 fL (80.0-100.0); MEAN PLATELET VOLUME 9.7 fL (7.4-10.4); MONOCYTES 8.6 % (2-11); NEUTROPHILS 61.7 % (40-80); RBC 3.53 10x6/uL (4.00-5.40); WBC 9.5 10x3/uL (4.8-10.8)
[2016-09-16 06:16] LABS: PLATELET COUNT 137 10x3/uL (130-400)
[2016-09-16 06:24] LABS: ANION GAP 13.8 mmol/L (8-16); CALCIUM 8.7 mg/dL (8.5-10.1); CARBON DIOXIDE 27.4 mmol/L (21.0-32.0); CREATININE - SERUM 3.9 mg/dL (0.6-1.3); POTASSIUM - SERUM 3.2 mmol/L (3.5-5.1)
--- NOTE | 2016-09-16 07:50 | NUR ---
AM ROUNDS - PT APPEARS TO BE SLEEPING ON RIGHT SIDE WITH EQUAL AND NON LABORED BREATHING. WILL CONTINUE TO MONITOR.
--- NOTE | 2016-09-16 08:05 | NUR ---
AM ROUNDS - PT APPEARS TO BE SLEEPING ON RIGHT SIDE WITH EQUAL AND NON LABORED BREATHING. WILL CONTINUE TO MONITOR
[2016-09-16 08:59] VITALS: BP 97/67
[2016-09-16 12:20] VITALS: BP 146/71
--- NOTE | 2016-09-16 13:12 | NUR ---
PT IS LATHARGIC. FAMILY AT BEDSIDE. PT IS ON HOSPICE CARE. WILL CONTINUE TO MONITOR
--- NOTE | 2016-09-16 13:22 | NUR ---
PT IS RESTING QUIETLY IN BED WITH NO NEEDS AT THIS TIME. VISITORS WERE AT BEDSIDE AND JUST RECENTLY LEFT. WILL CONTINUE TO MONITOR
[2016-09-16 16:24] VITALS: BP 131/81
--- NOTE | 2016-09-16 19:00 | NUR ---
ALERT/AWAKE AND ORIENTED. REQUESTED REPOSITIONING IN BED. CLEANED FOR INCONTINENCE OF STOOL. ASSESSMENTS COMPLETED. PLACED CALL LIGHT IN REACH.
[2016-09-16 20:00] VITALS: BP 120/75
--- NOTE | 2016-09-16 21:05 | NUR ---
ADMIN SCHED PO MED. REQUESTED PILLOW UNDER LEFT FOOT. INQUIRED ABOUT WHEN AND IF SHE IS HAVING SURGERY OF LEFT FOOT. INFORMED HER THERE WAS NO ORDER FOR SURGERY YET AND DIALYSIS IS SCHED FOR SUNDAY. STATED "OK, THANK YOU".
[2016-09-17] VITALS: BP 155/85
--- NOTE | 2016-09-17 02:37 | NUR ---
ASSISTED TRAVEL ADMINISTRATOR WITH GIVING BATH, REPOSITIONED. APPLIED CALMOSEPTINE TO BUTTOCK.
--- NOTE | 2016-09-17 04:52 | NUR ---
AWAKE, REQUESTED ANOTHER BLANKET AND REPOSITIONED.
[2016-09-17 05:05] LABS: BASOPHILS 0.5 % (0-2); EOSINOPHILS 0 % (0-7); HEMATOCRIT 33.3 % (36.0-48.0); HEMOGLOBIN 10.5 g/dL (12-16); IMMATURE GRANULOCYTES 4.3 % (0-5); LYMPHOCYTES 22.4 % (15-50); MCH 29.2 pg (26.0-34.0); MCHC 31.5 g/dL (31.0-37.0); MCV 92.5 fL (80.0-100.0); MEAN PLATELET VOLUME 10.4 fL (7.4-10.4); MONOCYTES 13.7 % (2-11); NEUTROPHILS 59.1 % (40-80); RDW 19.2 % (11.5-14.5); WBC 10.4 10x3/uL (4.8-10.8)
[2016-09-17 05:13] LABS: PLATELET COUNT 170 10x3/uL (130-400)
[2016-09-17 05:33] LABS: ANION GAP 15.3 mmol/L (8-16); CALCIUM 9.1 mg/dL (8.5-10.1); CARBON DIOXIDE 26.3 mmol/L (21.0-32.0); POTASSIUM - SERUM 3.6 mmol/L (3.5-5.1)
[2016-09-17 05:44] LABS: CREATININE - SERUM 4.9 mg/dL (0.6-1.3)
[2016-09-17 08:46] VITALS: BP 134/75
[2016-09-17 09:31] LABS: MAGNESIUM - SERUM 1.9 mg/dL (1.8-2.4); PHOSPHOROUS 2.1 mg/dL (2.5-4.9)
--- NOTE | 2016-09-17 10:25 | NUR ---
ALERT AND ORIENTED X4. RESTING IN BED. REFUSE TO EAT. COMPLAINS OF NAUSEA. ZOFRAN GIVEN. WOMAN NAMED ASIF CALLED STATING TO BE PATIENT'S DAUGHTER. PATIENT DENIES HAVING DAUGHTER AND DOESN'T KNOW ASIF. DID NOT CALL ASIF BACK, NOT ON HIPPA FORM. DENIES ANY NEEDS AT THIS TIME. CONTINUE PLAN OF CARE. BED LOCKED AND LOW. CALL LIGHT IN REACH. THREE SIDERAILS UP. RECIEVES LOVENOX INJ. NO SCDs. SURGEON ARRIVE TO ROOM DISCUSSING SURGERY ON FOOT POSSIBLY SUNDAY.
[2016-09-17 12:12] VITALS: BP 122/61
[2016-09-17 16:23] VITALS: BP 144/86
--- NOTE | 2016-09-17 19:30 | NUR ---
RESUMED CARE OF PT, LYING IN BED RESPIRATIONS EVEN AND UNLABORED ON ROOM AIR. 1ST STEP OVERLAY INFLATED AND HEELS BRIDGED. REQUESTS TO SEE ANAM FOUNTAIN. CALL LIGHT IN REACH. WILL CONTINUE TO MONITOR. SEE NURSE ASSESSMENT.
[2016-09-17 20:00] VITALS: BP 99/64
--- NOTE | 2016-09-17 23:30 | NUR ---
BED BATH AND LINENS CHANGED. DRESSING TO BOTTOM AND LEFT HEEL CHANGED. REPOSITIONED TO LEFT SIDE.
[2016-09-18] VITALS: BP 123/77
--- NOTE | 2016-09-18 06:10 | NUR ---
NO CHANGES FROM PREVIOUS ASSESSMENT, CALL LIGHT IN REACH.
--- NOTE | 2016-09-18 07:24 | NUR ---
AM ROUNDS- PT IN BED, DENIES ANY NEEDS AT THIS TIME. CALL LIGHT IN REACH, NAD NOTED, WILL CONTINUE TO MONITOR.
[2016-09-18 08:00] VITALS: BP 142/92
--- NOTE | 2016-09-18 08:33 | NUR ---
ADMINISTERED MORNING MEDICATIONS, PT IN BED, STATES " I WANT TO GET UP TO EAT MY BREAKFAST, I AM WAITING ON THE CHEL TO COME BUT HE IS MOVING SLOW". INFORMED PT THAT PHYSICAL THERAPY WILL BE HERE SOON, NOT TO TRY TO GET UP OUT OF BED BY HERSELF, BECAUSE SHE IS GOING TO FALL AND GET HURT. PT VEBALIZED UNDERSTANDING ABOUT NOT GETTING UP BY HERSELF. NAD NOTED, CALL LIGHT IN REACH, WILL CONTINUE TO MONITOR.
--- NOTE | 2016-09-18 09:42 | NUR ---
PT GETTING DIALYSIS AT THIS TIME, DENIES ANY NEEDS, CALL LIGHT IN REACH, DIALYSIS NURSE AT BEDSIDE, NAD NOTED, WILL CONTINUE TO MONITOR.
--- NOTE | 2016-09-18 09:52 | NUR ---
Patient Name: WESLEY SMITH Encounter No: [id number] : 1945 Primary Insurance: WELLC[employer] MEDICARE ADV Anticipated DC Date: Planned Disposition: Half-Way Facility External Planned Provider: [facility], MEDICARE REHAB BED DCP follow-up note: CM RECEIVED CALL FROM ADMISSION SCREENER FOR [facility], , REFERRAL WAS RECEIVED AND IT IS DOUBTFUL THAT INSURANCE WILL PAY FOR PT'S REHAB PT CONTINUES TO REFUSE THERAPY AT TIMES. [facility] IS SUBMITTING TO INSURANCE FOR AUTHORIZATION OF REHAB SERVICES. CM FAXED WEEKEND UPDATE FOR REHAB CONSIDERATION AT [facility] TO [phone]. CM WAITING ADMISSION DETERMINATION AND INSURANCE AUTHORIZATION FOR REHAB AT [facility] [place]. RENEA GODFREY, CASE MANAGEMENT
--- NOTE | 2016-09-18 10:00 | NUR ---
DIALYSIS NURSE UNABLE TO DO DIALYSIS AT THIS TIME, DIALYSIS CATH NOT PULLING, DIALYSIS NURSE STATED " DR. MCNALLY IS GOING TO ORDER SOME CATHFLOW ACTIVASE AND AFTER I GIVE THAT I WILL COME BACK AND FINISH DOING DIALYSIS". WILL NOTIFY DIALYSIS NURSE EMERSON WHEN ACTIVASE IS READY.
--- NOTE | 2016-09-18 10:35 | NUR ---
PT TRANSFERED TO CT AT THIS TIME, NAD NOTED.
--- NOTE | 2016-09-18 11:04 | NUR ---
PT TRANSFERED BACK TO ROOM AT THIS TIME. PT REPOSITIONED AT THIS TIME, CALL LIGHT IN REACH, NAD NOTED, WILL CONTINUE TO MONITOR.
--- NOTE | 2016-09-18 11:41 | NUR ---
CALLED PHARMACY AND SPOKE WITH GALDINO, INFORMED HER THAT I NEED CATHFLO ACTIVASE FOR PT, GALDINO STATED THAT SHE WOULD BRING UP SOON.
[2016-09-18 12:00] VITALS: BP 110/71
--- NOTE | 2016-09-18 12:19 | NUR ---
DIALYSIS NURSE SOFÍA, ADMINISTERED CATHFLO ACTIVASE AT THIS TIME. CONSENTS FOR LT HEEL DEBRIDEMENT SIGNED AND PLACED ON CHART. PT DENIES ANY NEEDS AT THIS TIME. CALL LIGHT IN REACH, NAD NOTED, WILL CONTINUE TO MONITOR.
[2016-09-18 16:00] VITALS: BP 136/94
--- NOTE | 2016-09-18 19:15 | NUR ---
ALERT/AWAKE ORIENTED X 4. WANTS TO KNOW TIME OF HER SURGERY FOR TOMORROW. INFORMED HER LEFT HEEL DEBRIDEMENT SCHEDULED FOR 1130 TOMORROW. IN ISOLATION FOR CDIF. IV IN L WRIST INTACT SL. ON 1ST STEP OVERLAY MATRESS. LEFT FOOT ELEVATED ON PILLOW. HAS CALL LIGHT IN REACH FOR ANY NEEDS.
[2016-09-18 20:13] VITALS: BP 145/72
[2016-09-18 23:40] VITALS: BP 116/60
[2016-09-19 03:43] VITALS: BP 132/69
--- NOTE | 2016-09-19 05:00 | NUR ---
COMPUTER CUSTOMER SUPPORT SPECIALIST GAVE HIBICLENS BATH. REPOSITIONED UP IN BED. NO OTHER NEEDS VOICED.
--- NOTE | 2016-09-19 08:26 | NUR ---
LATOYA FROM PHYSICAL THERAPY IN TO GET PT UP TO SIDE OF BED. PT STATED " I DONT WANT TO GET UP, I AM GOING TO HAVE SURGERY AT 1100 AND I DONT WANT TO BE UP AND DOWN". INFORMED PT THAT LATER AFTER HER SURGERY SHE IS GOING TO GET DIALYSIS SO LATOYA MIGHT NOT HAVE TIME TO GET HER UP AFTER. PT STATED "I DONT WANT TO GET UP". LATOYA INFOMRED PT THAT IT WOULD PROBABLY BE TOMORROW BEFORE HE CAN GET HER UP, PT STATED "THAT'S FINE".
[2016-09-19 09:22] VITALS: BP 149/84
--- NOTE | 2016-09-19 10:00 | NUR ---
FRONT MAKER KRISTIN AT BEDSIDE TO PROVIDED HIBICLENS BATH. DRESSING TO BOTTOM CHANGED AT THIS TIME. NEW MEPILEX DRESSING PLACED, SIGNED AND DATED. PT DENIES ANY NEEDS AT THIS TIME. CALL LIGHT IN REACH, NAD NOTED, WILL CONTINUE TO MONITOR.
[2016-09-19 12:18] VITALS: BP 121/71
--- NOTE | 2016-09-19 12:32 | NUR ---
PT IN BED, SLEEPING AT THIS TIME, NAD NOTED, CALL LIGHT IN REACH, WILL CONTNUE TO MONITOR.
--- NOTE | 2016-09-19 13:46 | NUR ---
PT TRANSFERED TO OR VIA BED, NAD NOTED.
--- NOTE | 2016-09-19 15:20 | NUR ---
ASK RENAL DOC FOR POSSIBLE CARDIOLOGY CONSULT FOR [facility] W/ RVR. PER DR HERNANDEZ. TELEMETRY ALSO ORDERED. RHYTHM HAS NOW CONVERTED TO NSR.
[2016-09-19 15:31] VITALS: BP 135/87
--- NOTE | 2016-09-19 15:36 | NUR ---
PT TRANSFERED BACK TO [facility] VIA BED, VITAL SIGNS STABLE. NAD NOTED, CALL LIGHT IN REACH, WILL CONTINUE TO MONITOR.
--- NOTE | 2016-09-19 15:53 | NUR ---
Patient Name: WESLEY SMITH Encounter No: [id number] : 1945 Primary Insurance: WELLCARE MEDICARE ADV Anticipated DC Date: Planned Disposition: [facility] Facility External Planned Provider: [facility], MEDICARE SKILLED BED DCP follow-up note: CM FAXED UPDATED NOTES INCLUDING POST OP NOTE TO RICHARD OF [facility] VIA [employer] AT [phone]. CM TO FAX WOUND CARE INSTRUCTIONS WHEN DOCUMENTED. RICHARD WILL ALSO SUBMIT THIS TO INSURANCE COMPANY TO TRY TO GET AUTHORIZATION FROM INSURANCE FOR ADMISSION TO SKILLED BED FOR WOUND CARE REHAB BED AUTHORIZATION IS NOT LOOKING LIKE IT IS LIKELY TO HAPPEN. CM TO FORWARD WOUND CARE INSTRUCTIONS TO [facility] SOON POSSIBLE. RENEA GODFREY, CASE MANAGEMENT
--- NOTE | 2016-09-19 19:00 | NUR ---
RECEIVING DIALYSIS TO R CHEST HEMESPLIT. DENIES PAIN OR ANY NEEDS. DRSG TO L FOOT C/D/I. ON 1ST STEP MATRESS. DIALYSIS NURSE PRESENT IN ROOM.
--- NOTE | 2016-09-19 19:56 | NUR ---
Dialysis treatment today from 1157-4350. Removed 1.5 liters of fluid. Patient was post surgery. Patient still very lethargic post dialysis treatment. Removed 4 clots from the venous lumen during the treatment. notified. Post treatment vitals: BP: 127/84, HR: 87, Temp: 98.3, Resp:16
[2016-09-19 20:20] VITALS: BP 102/71
--- NOTE | 2016-09-19 21:05 | NUR ---
ADMIN SCHED MEDS AND ULTRAM 50 MG PO FOR C/O LEFT FOOT PAIN LEVEL 8, DESCRIBED THROBBING. LABOR RELATIONS DIRECTOR INFORMED ME SHE IS 170 ATRIAL FIB ON MONITOR. PATIENT STATED SHE FELT OK. CHECKED VS AT 121/69. WILL CONT TO MONITOR CLOSELY.
--- NOTE | 2016-09-19 22:40 | NUR ---
CALLED DR BLAKE WITH CONSULT FOR PATIENT'S ATRIAL FLUTTER. ORDERED CARDIZEM BOLUS 15MG AND CARDIZEM DRIP 10MG/HR. CALLED BRANDON AGARWAL RE: MED ORDER.
[2016-09-19 23:52] VITALS: BP 112/74
--- NOTE | 2016-09-19 23:57 | NUR ---
STENCIL CUTTER MACHINE SHOW SHE IS NOW IN SR.
--- NOTE | 2016-09-20 03:50 | NUR ---
AWAKE, TOOK A FEW SIPS OF WATER. IV IN L WRIST WITH CARDIZEM DRIP AT 10ML/HR PER ORDER. TELEMETRY SHOWS 76 SR ON MONITOR.
[2016-09-20 03:53] VITALS: BP 107/56
--- NOTE | 2016-09-20 07:38 | NUR ---
AM ROUNDING- RECEIVED REPORT FROM CORPORATE PLANNING MANAGER NURSE ANAND. PT IS CURRENTLY LAYING IN BED ON RIGHT SIDE WITH EYES OPEN RESTING. IN ENTERIC ISOLATION FOR C.DIFF. ON 02 AT 2L VIA NC. ON MONITOR SHOWING SR, HR 93 WITH PAC (PER DEV WITH TELEMETRY). IV SEEN TO LEFT WRIST WITH CARDIZEM RUNNING AT 10CC. RIGHT CHEST HEMOSPLIT SEEN FOR DIALYSIS. ON FIRST STEP OVERLAY MATTRESS. NO NEED AT CURRENT TIME. WILL CONTINUE TO MONITOR AND CONTINUE WITH PLAN OF CARE.
--- NOTE | 2016-09-20 10:37 | NUR ---
Patient Name: WESLEY SMITH Encounter No: [id number] : 1945 Primary Insurance: WELLCARE MEDICARE ADV Anticipated DC Date: 09-23-2016 Planned Disposition: [facility] Facility External Planned Provider: [facility], MEDICARE SKILLED BED DCP follow-up note: CM FAXED UPDATED NOTES INCLUDING POST OP NOTE WITH WOUND CARE INSTRUCTIONS TO RICHARD OF [facility]IA [employer] AT [phone]. CM RECEIVED CALL FROM SHABBIR, CLINICAL LIAISON FOR [facility], , WHO REPORTS THAT [facility] WILL ACCEPT PT AND INSURANCE HAS AUTHORIZED SKILLED BED FOR WOUND CARE. CM NOTIFIED PT WHO IS IN AGREEMENT WITH DISCHARGE PLAN TO [facility] IN [place]. CM NOTIFIED DR. CABALLERO. FOR DISCHARGE, FAX DISHCHARGE INFORMATION TO [facility], ; NURSE REPORT TO BE CALLED TO [facility] AT [phone]. PT TO TRANSPORT VIA AMBULANCE. RENEA GODFREY, CASE MANAGEMENT
--- NOTE | 2016-09-20 14:40 | NUR ---
Ekaterina- ESSIE FOSTER CAME TO INFORM ME THAT PTS MEPILEX TO BUTTOCK AREA IS SOILED WHILE CHANGING PTS LINEN AND CLEANING PT UP. I REMOVED SOILED MEPILEX AND PLACED NEW MEPILEX ON PTS BUTTOCK AREA. PTS BUTTOCK AREA HAS EXCORIATION. PT CLEANED AND TURNED ON RIGHT SIDE.
[2016-09-20 16:10] VITALS: BP 108/60
--- NOTE | 2016-09-20 16:33 | NUR ---
ELLI NORMAN WITH DIALYSIS CALLED TO INFORM ME TO PUT ORDERS IN PER ROXANNA YEUNG NP FOR DR. REED FOR PTS DIALYSIS TODAY. ELLI NORMAN RECEIVED TELEPHONE ORDERS FROM ROXANNA YEUNG NP. WILL PUT ORDERS IN GIVEN.
--- NOTE | 2016-09-20 18:06 | NUR ---
PT IS CURRENTLY LAYING IN BED ON BACK WITH EYES OPEN RESTING. PT IS C/O FEET BEING COLD. MADE SURE BLANKETS WERE COVERING PTS FEET AREA. NO OTHER NEED AT CURRENT TIME. WILL CONTINUE TO MONITOR.
--- NOTE | 2016-09-20 19:20 | NUR ---
RECEIVED REPORT, PT LYING ON R.SIDE, DENIES ANY NEEDS, CALL LIGHT IN REACH, BOX ALARM IS ON, BED IS LOW, SRX2, WILL CONTINUE PLAN OF CARE
[2016-09-20 20:00] VITALS: BP 96/54
[2016-09-21] VITALS: BP 94/54
--- NOTE | 2016-09-21 03:39 | NUR ---
DECORATING INSPECTOR AT BEDSIDE TO OBTAIN VITALS, CALL LIGHT IN REACH. WILL CONTINUE WITH PLAN OF CARE.
--- NOTE | 2016-09-21 04:48 | NUR ---
ASSESSMENT COMPLETE, SEE FLOWSHEET, PT SLEEPING, CALL LIGHT IN REACH, BOX ALARM ON, WILL CONTINUE TO MONITOR
--- NOTE | 2016-09-21 07:06 | NUR ---
AM ROUNDING- RECEIVED REPORT FROM FORESTER SILVICULTURE NURSE REAL. PT IS CURRENTLY LAYING IN BED ON RIGHT SIDE WITH EYES CLOSED RESTING. IN ENTERIC ISOLATION FOR C.DIFF. ON FIRST STEP OVERLAY MATTRESS. ON 02 AT 2L VIA NC. ON MONITOR SHOWING SR, HR 80. IV SEEN TO RIGHT WRIST WITH CARDIZEM RUNNING AT 10CC. RIGHT CHEST HEMOSPLIT SEEN FOR DIALYSIS. NO NEED AT CURRENT TIME. WILL CONTINUE TO MONITOR AND CONTINUE WITH PLAN OF CARE.
[2016-09-21 08:16] VITALS: BP 94/45
--- NOTE | 2016-09-21 10:43 | NUR ---
Nutrition follow-up: Diet: Renal consistent CHO soft with Nepro TID PO intake continues to be very poor at this time. Pt is s/p wound debridement In isolation for C.Diff multiple BM's labs reviewed Pt now assessed with severe malnutrition of acute illness R/T renal failure AEB < 50% intake of estimated energy needs for > 5 days; noted with moderate fluid accumulation. Recommend starting nutrition support of NGT vs PEG tube placement and TF started due to pt not meeting estimated energy needs with oral intake at this time. RDN following.
[2016-09-21 10:47] LABS: INR 1.2 (0.85-1.17)
--- NOTE | 2016-09-21 11:26 | NUR ---
PAULA WITH IR CALLED TO INFORM ME TO MAKE SURE LOVENOX IS HELD TOMORROW FOR PT HAVING POSSIBLE ARTERIOGRAM. PAULA STATED THEY WOULD PUT ORDERS IN HE JUST WANTED TO INFORM ME.
[2016-09-21 11:42] VITALS: BP 109/47
--- NOTE | 2016-09-21 15:08 | NUR ---
CHANGED PTS DRESSING TO LEFT HEEL AREA. ELLI YANEZ IN ROOM ASSISTING ME. MEASUREMENTS OF WOUND ARE 6CM X 4CM X 2CM. EDGES OF WOUND ARE DRY AND WHITE. ONE SMALL BLACK SPOT SEEN AT HEEL AREA. WOUND BASE HAS WHITE PATCHY AREAS WITH SMALL REDDENED AREA. CLEANED WOUND WITH WOUND CLEANSER. WOUND BED THEN PAT DRIED WITH 4X4 GAUZE PADS. 4X4 GUAZE PADS SOAKED (SQUEEZED OUT) WITH NS ORDERED AND PACKED INTO WOUND BED. COVERED WOUND BED WITH DRY 4X4 GAUZE PADS AND WRAPPED WITH KERLIX. PT WAS UNCOMFORTABLE AT TIMES DURING DRESSING CHANGE. BILATERAL FEET ELEVATED ON PILLOW WITH HEELS OFF BED. FAMILY MEMBERS ARE AT BEDSIDE. NO NEED AT CURRENT TIME. WILL CONTINUE TO MONITOR.
[2016-09-21 16:10] VITALS: BP 112/67
--- NOTE | 2016-09-21 16:46 | NUR ---
20 GUAGE PIV INSERTED FOR IVPB ANBX VIA L.FA X2 STICKS. DATED INITIALED AND SWAB CAPS IN PLACE. PT RESTING QUIETLY WITH FAMILY AT BEDSIDE. NO FURTHER NEEDS. WILL CTM.
--- NOTE | 2016-09-21 17:10 | NUR ---
CONSENTS FOR PROCEDURE TOMORROW SIGNED BY PT AND PLACED IN CHART. PT INSTRUCTED TO REMAIN NOTHING BY MOUTH AFTER MIDNIGHT TONIGHT ORDERED. PT AGREES. NPO SIGN PLACED ON PTS DOOR. FAMILY MEMBERS ARE AT BEDSIDE. NO NEED AT CURRENT TIME. WILL CONTINUE TO MONITOR.
--- NOTE | 2016-09-21 18:13 | NUR ---
PT IS CURRENTLY LAYING IN BED ON BACK WITH EYES CLOSED RESTING. NO NEED AT CURRENT TIME. PT IS AWARE TO BE NOTHING BY MOUTH AFTER MIDNIGHT FOR PROCEDURE TOMORROW. CONSENTS SIGNED AND IN CHART. WILL PASS THIS ALONG IN REPORT. WILL CONTINUE TO MONITOR.
--- NOTE | 2016-09-21 19:57 | NUR ---
PTS SON CALLED TO CHECK ON HIS MOTHER. I EXPLAINED THAT PT HAS BEEN YELLING OUT UNCONTROLLABLY, LOUDLY, ALL HOURS OF THE DAY AND NIGHT, WHICH IS DISRUPTIVE TO THE OTHER PATIENTS. PT IS CONFUSED, DEMANDING, AND WANTS SOMEONE TO STAY IN HER ROOM WITH HER AT ALL TIMES. HER SON REQUESTED TO SPEAK WITH HER, SO I TRANSFERRED THE CALL TO PTS ROOM AND WENT AND HELD TO PHONE UP TO PTS EAR SO THEY COULD TALK. PT MUMBLED INCOHERENTLY IN RESPONSE TO HER SON. PT IS CURRENTLY LYING IN BED, ON HER RIGHT SIDE, RESTING COMFORTABLY. SHE THINKS IT IS BREAKFAST TIME. HAVE REORIENTED PT TO PLACE, TIME, AND SITUATION. CONTINUE TO MONITOR CLOSELY. BED LOW, CALL LIGHT IN REACH, SIDE RAILS X 2, HOB 10 DEGREES.
[2016-09-22] VITALS (7 sets, daily range): BP systolic 104–150; BP diastolic 59–71
--- NOTE | 2016-09-22 00:45 | NUR ---
PT BATHED, LINENS CHANGED, GOWN CHANGED, RESTING COMFORTABLY AND QUIETLY AT THIS TIME. CONTINUE TO MONITOR CLOSELY.
[2016-09-22 06:02] LABS: BASOPHILS 0.2 % (0-2); EOSINOPHILS 0.1 % (0-7); HEMATOCRIT 27.6 % (36.0-48.0); HEMOGLOBIN 8.6 g/dL (12-16); MCH 29.1 pg (26.0-34.0); MCHC 31.2 g/dL (31.0-37.0); MCV 93.2 fL (80.0-100.0); MEAN PLATELET VOLUME 9.8 fL (7.4-10.4); MONOCYTES 9.9 % (2-11); NEUTROPHILS 62.8 % (40-80); PLATELET COUNT 181 10x3/uL (130-400); RBC 2.96 10x6/uL (4.00-5.40); RDW 19.8 % (11.5-14.5); WBC 10.5 10x3/uL (4.8-10.8)
[2016-09-22 06:06] LABS: INR 1.11 (0.85-1.17); PROTIME 14.1 SECONDS (11.6-15.0)
--- NOTE | 2016-09-22 07:20 | NUR ---
AM ROUNDS - PT IS AWAKE AND ALERT IN BED ASKING ABOUT THER PROCEDURE TODAY. INFORMED HER THAT I AM NOT SURE WHAT TIME THE PROCEDURE WILL BE TODAY. PT HAS A YELLOW BAND ON. IV TO LEFT WRIST, NS @ 10CC/HR AND LEFT FA CARTIZEM @ 10CC/HR. 2L O2 VIA NC. PT IS ON ENTERIC ISOLATION. RIGHT CHEST HEMOSPLIT FOR DIALYSIS. DIALYSIS TODAY PER REPORT FROM MINE WIRER. PT HAS NO NEEDS AT THIS TIME. WILL CONTINUE TO MONITOR
[2016-09-22 07:24] LABS: ERYTHROCYTE SEDIMENTATION RATE 113 mm/hr (0-30)
--- NOTE | 2016-09-22 08:46 | NUR ---
PT LEFT FLOOR FOR PROCEDURE VIA BED WITH STAFF MEMBERS.
--- NOTE | 2016-09-22 18:10 | NUR ---
PT IS ON LEFT SIDE IN BED. FAMILY AT BEDSIDE. PT HAS FINISHED DINNER AND HAS NO NEEDS AT THIS TIME. WILL CONTINUE TO MONITOR.
--- NOTE | 2016-09-22 19:20 | NUR ---
RECEIVED REPORT, PT SLEEPING, CALL LIGHT IN REACH, BED IS LOW, BOX ALARM ON,WILL CONTINUE PLAN OF CARE
--- NOTE | 2016-09-23 02:17 | NUR ---
ADMISSIONS CLERK'S ARE GIVING BED/BATH, I CHANGED DRESSING TO LEFT FOOT(WET TO DRY) PT HAS NO COMPLAINTS ARE THIS TIME
--- NOTE | 2016-09-23 03:20 | NUR ---
ASSESSMENT COMPLETE,02-2L,WILL WEAN 02 TOLERATED, IV-L.WRIST-NS @10, LFA- CARDIZEM @10, L, FOOT DRESSING- CLEAN,DRY,INTACT, R.CHEST HEMOSPLIT, DIALYSIS-,TH, SAT. MEPLEX TO BOTTOM, [id number],BED IS LOW, SRX2, BOX ALARM IS ON, CALL LIGHT IN REACH, WILL CONTINUE PLAN OF CARE
[2016-09-23 04:00] VITALS: BP 119/67
--- NOTE | 2016-09-23 07:00 | NUR ---
PT WAS RECEIVED IN BED AWAKE AND ORIENTED X 2 AT THE BEGINNING OF THIS SHIFT. NO SIGNS OF ANY DISCOMFORT OR DISTRESS. NO VOICED COMPLAINTS. STABLE CONDITION OBSERVED. PT IS ON ISOLATION PRECAUTIONS. LEFT WRIST HAS NORMAL SALINE INFUSING VIA IV AT 10ML'S/HR VIA PUMP. LEFT FOREARM IV INFUSING MEDICATION PER PUMP. WILL BE MONITORING PT. AND ASSISTING PRN WITH ADL'S. CALL LIGHT IS IN REACH. VITAL SIGNS WNL.
[2016-09-23 08:00] VITALS: BP 122/59
[2016-09-23 08:46] LABS: BASOPHILS 0.2 % (0-2); EOSINOPHILS 0.2 % (0-7); HEMATOCRIT 27.8 % (36.0-48.0); HEMOGLOBIN 8.6 g/dL (12-16); IMMATURE GRANULOCYTES 2.3 % (0-5); LYMPHOCYTES 16.1 % (15-50); MCH 28.9 pg (26.0-34.0); MCHC 30.9 g/dL (31.0-37.0); MCV 93.3 fL (80.0-100.0); MEAN PLATELET VOLUME 8.8 fL (7.4-10.4); NEUTROPHILS 72.2 % (40-80); PLATELET COUNT 187 10x3/uL (130-400); RBC 2.98 10x6/uL (4.00-5.40); RDW 20.1 % (11.5-14.5)
[2016-09-23 09:02] LABS: ANION GAP 14.1 mmol/L (8-16); CALCIUM 8.3 mg/dL (8.5-10.1); CARBON DIOXIDE 26.5 mmol/L (21.0-32.0); CREATININE - SERUM 5.8 mg/dL (0.6-1.3); POTASSIUM - SERUM 3.6 mmol/L (3.5-5.1); VANCOMYCIN - RANDOM 8.3 ug/mL (10.0-20.0)
--- NOTE | 2016-09-23 10:00 | EC ---
PATIENT:WESLEY SMITH DATE OF SERVICE: 08/31/16 SEX: F MEDICAL RECORD: [id number] DATE OF : [birth year] LOCATION:D.M2 D.210 AGE OF PATIENT: 70 ADMISSION DATE: 08/31/16 REFERRING PHYSICIAN: INTERPRETING PHYSICIAN: MARGARITA BLAKE MD ECHOCARDIOGRAM REPORT ECHO CHARGES 4 ECHO COMPLETE CLINICAL DIAGNOSIS: AFIB ECHOCARDIOGRAPHIC MEASUREMENTS (adult normal given) AC root (d.<3.7cm) 3.3 LV Septum d (<1.2 cm> 1.8 Valve Excursion 1.7 LV Septum (systole) 2.2 Left Atria (s.<4.0cm> 3.5 LVPW d(<1.2cm) 1.8 RV (d.<2.3cm) 3.5 LVPW (sytole) 2.3 LV diastole(<5.6CM) 4.4 MV E-F(>70mm/sec) LV systole 2.7 LVOT Diameter 1.5 MV exc.(>10mm) 1.6 Est.ejection fraction (50-75%) Pericardial Effusion N DOPPLER: LVIT A 74.0 E 56.0 LA RVSP 37 LVOT 105 AOP1/2T Asc. Ao 164 RVOT 88 RA PA 137 AV Gradient Peak 10.73 AV Mean 4.63 AV Area 1.9 MV Gradient Peak 2.06 MV Mean 1.14 MV Area COMMENTS: Java Developer With Security Clearance: Enrico ANDRADE Blueprint Blocker:Sima Kaplan TAPE# PACS DATE OF SERVICE: 09/21/2016 Adequate 2D echo, color flow, spectral Doppler and M-mode. LVH is present. LV internal dimensions are normal. Wall motion is normal. EF is greater than or equal to 55%. Aortic valve is tricuspid. No stenosis by Doppler interrogation. The left atrium is normal at 3.5 cm. The mitral valve shows no prolapse. Trace MR. Right-sided chamber is grossly normal. Trace TR. TRANSINT:[id number] Voice Confirmation ID: [id number] DOCUMENT ID: [id number] ECHOCARDIOGRAM REPORT [id number] WESLEY SMITH MARGARITA BLAKE MD at 1000 CC: [id number] DICTATION DATE: 09/21/16 1316 [facility]: 09/21/16 2250 ADM IN [facility] [address] [id number]
[2016-09-23 12:00] VITALS: BP 129/81
--- NOTE | 2016-09-23 15:10 | NUR ---
ROUNDED THIS MORNING. NEW ORDERS RECEIVED. PT. ASKED FOR PAIN MEDICATION AROUND 11AM AND RECEIVED A TRAMADOL PO AT THAT TIME. PT IS ON A 1ST STEP BED AND IS TURNED AND REPOSITIONED Q 2 HOURS FOR COMFORT AND CIRCULATION PURPOSES.
[2016-09-23 16:00] VITALS: BP 135/77
--- NOTE | 2016-09-23 19:15 | NUR ---
RECEIVED REPORT, PT HAVING DIALYSIS IN ROOM, BED IS LOW, SRX2, BOX ALARM IS ON, CALL LIGHT IN REACH, WILL CONTINUE TO MONITOR
[2016-09-24] VITALS: BP 129/60
--- NOTE | 2016-09-24 03:50 | NUR ---
ASSESSMENT COMPLETE, SEE FLOWSHEET, LYING QUIELY, EYES CLOSED, NO DISTRESS NOTICED, BED IS LOW, SRX2, BOX ALARM IS ON, CALL LIGHT IN REACH, WILL CONTINUE PLAN OF CARE
[2016-09-24 04:00] VITALS: BP 121/69
--- NOTE | 2016-09-24 04:13 | NUR ---
RESTING WITH NO DISTRESS. CPOC.
[2016-09-24 05:18] LABS: BASOPHILS 0.3 % (0-2); EOSINOPHILS 0.5 % (0-7); HEMATOCRIT 28.1 % (36.0-48.0); HEMOGLOBIN 8.8 g/dL (12-16); IMMATURE GRANULOCYTES 2.4 % (0-5); LYMPHOCYTES 16.9 % (15-50); MCH 29.1 pg (26.0-34.0); MCHC 31.3 g/dL (31.0-37.0); MEAN PLATELET VOLUME 9.4 fL (7.4-10.4); NEUTROPHILS 69.9 % (40-80); PLATELET COUNT 199 10x3/uL (130-400); RBC 3.02 10x6/uL (4.00-5.40); RDW 20.2 % (11.5-14.5); WBC 10.6 10x3/uL (4.8-10.8)
[2016-09-24 05:32] LABS: ANION GAP 11.3 mmol/L (8-16); CALCIUM 8.3 mg/dL (8.5-10.1); CARBON DIOXIDE 28.8 mmol/L (21.0-32.0); POTASSIUM - SERUM 3.1 mmol/L (3.5-5.1); VANCOMYCIN - RANDOM 17.7 ug/mL (10.0-20.0)
[2016-09-24 05:34] LABS: CREATININE - SERUM 3.4 mg/dL (0.6-1.3)
--- NOTE | 2016-09-24 07:00 | NUR ---
RECEIVED REPORT. ASSUMED CARE OF PATIENT. CALL LIGHT WITHIN REACH. 1ST STEP OVERLAY PATENT. DENIES NEEDS AT THIS TIME. NO DISTRESS.
[2016-09-24 08:00] VITALS: BP 143/79
--- NOTE | 2016-09-24 14:25 | NUR ---
DRESSING CHANGE TO LEFT HEEL COMPLETED AT THIS TIME. MILD ODOR NOTED. SLIGHT BLUE TURQUIOSE DRAINAGE COLOR ON DRESSING, PSUEDOMONAS? TOLERATED DRESSING CHANGE WELL. FEET BRIDGED ON PILLOWS TO PREVENT PRESSURE. 1ST STEP OVERLAY CONTINUES PATENT. NO DISTRESS.
--- NOTE | 2016-09-24 14:30 | NUR ---
20 GAUGE IV REMOVED FROM LEFT WRIST FOUND TO BE DISLODGED WHEN FLUSHING IV SITES AT THIS TIME. NO BLEEDING FROM SITE. CATHETER TIP INTACT. 2X2 APPLIED AND SECURED WITH TAPE. TOLERATED REMOVAL OF IV SITE WELL. NO DISTRESS.
--- NOTE | 2016-09-24 18:00 | NUR ---
TURNED AND REPOSITIONED. CALL LIGHT WITHIN REACH. DENIES NEEDS. NO DISTRESS.
--- NOTE | 2016-09-24 20:01 | NUR ---
RECEIVED REPORT, REPOSITION PT ,DENINES ANY OTHER NEEDS AT THIS TIME, BED IS LOW, SRX2, BOXALARM IS ON, CALL LIGHT IN REACH, WILL CONTINUE PLAN OF CARE
[2016-09-24 21:33] VITALS: BP 132/68
[2016-09-24 23:00] VITALS: BP 140/77
--- NOTE | 2016-09-25 03:16 | NUR ---
ASSESSMENT COMPLETE, 02, IV-LFA-SL,R.VEFUH-[id number], [id number], DRESSING-L.FOOT, MEPLEX DRESSING-BOTTOM, 1st MATTRESS, BOX ALARM, BED IS LOW, SRX2, CALL LIGHT IN REACH, WILL CONTINUE PLAN OF CARE
[2016-09-25 03:40] VITALS: BP 140/77
--- NOTE | 2016-09-25 03:43 | NUR ---
FORESTRY FIRE AID AT BEDSIDE FOR VS. NEEDS ADDRESSED AT THIS TIME. CALL LIGHT IN REACH. WILL CONT TO MONITOR.
[2016-09-25 05:31] LABS: BASOPHILS 0.3 % (0-2); EOSINOPHILS 0.6 % (0-7); HEMATOCRIT 28.4 % (36.0-48.0); HEMOGLOBIN 9.2 g/dL (12-16); IMMATURE GRANULOCYTES 1.9 % (0-5); LYMPHOCYTES 20.2 % (15-50); MCHC 32.4 g/dL (31.0-37.0); MCV 92.5 fL (80.0-100.0); MEAN PLATELET VOLUME 9.3 fL (7.4-10.4); MONOCYTES 10.5 % (2-11); NEUTROPHILS 66.5 % (40-80); PLATELET COUNT 201 10x3/uL (130-400); RBC 3.07 10x6/uL (4.00-5.40); RDW 20.5 % (11.5-14.5); WBC 9.3 10x3/uL (4.8-10.8)
[2016-09-25 06:10] LABS: ANION GAP 13.2 mmol/L (8-16); CALCIUM 8.5 mg/dL (8.5-10.1); CARBON DIOXIDE 26.9 mmol/L (21.0-32.0); POTASSIUM - SERUM 3.1 mmol/L (3.5-5.1); VANCOMYCIN - RANDOM 15.9 ug/mL (10.0-20.0)
[2016-09-25 06:12] LABS: CREATININE - SERUM 4.4 mg/dL (0.6-1.3)
--- NOTE | 2016-09-25 07:18 | NUR ---
AM ROUNDING- RECEIVED REPORT FROM PARKING ENFORCEMENT OFFICER NURSE REAL. PT IS CURRENTLY LAYING IN BED ON FIRST STEP OVERLAY MATTRESS ON BACK WITH EYES OPEN. PT IS REQUESTING TO BE TURNED. TURNED PT ON RIGHT SIDE. IN ENTERIC ISOLATION FOR C.DIFF. ON ROOM AIR. ON MONITOR SHOWING SR, HR 84. IV SEEN TO LEFT FOREARM THAT IS CURRENTLY SALINE LOCKED. RIGHT CHEST HEMOSPLIT SEEN. NO FURTHER NEED AT CURRENT TIME. WILL CONTINUE TO MONITOR AND CONTINUE WITH PLAN OF CARE.
[2016-09-25 08:00] VITALS: BP 142/85
--- NOTE | 2016-09-25 08:57 | NUR ---
Patient Name: WESLEY SMITH Encounter No: [id number] : 1945 Primary Insurance: [employer] MEDICARE ADV Anticipated DC Date: 09-23-2016 Planned Disposition: Intermediate Facility External Planned Provider: [facility], MEDICARE SKILLED BED FOR WOUND CARE DCP follow-up note: CM FAXED UPDATED NOTES TO SHERRI[facility] VIA [employer] AT [phone]. PT WILL BE ON TTS OUTPATIENT DIALYSIS SCHEDULE; CM REQUESTING CONFIRMATION OF INSURANCE AUTHORIZATION FOR ADMIT TO DETENTION FACILITY TODAY. FOR DISCHARGE, FAX DISHCHARGE INFORMATION TO [facility], ; NURSE REPORT TO BE CALLED TO [facility] AT [phone]. PT TO TRANSPORT VIA AMBULANCE. RENEA GODFREY, CASE MANAGEMENT
[2016-09-25] MEDS ORDERED: PLAVIX75 MG PO (10:06)
[2016-09-25] MEDS ORDERED: ULTRAM50 MG PO (10:07)
[2016-09-25] MEDS ORDERED: ASPIRIN81 MG PO (10:07)
[2016-09-25] MEDS ORDERED: CARDIZEM CD120 MG PO (10:07)
[2016-09-25] MEDS ORDERED: RYTHMOL SR225 MG PO (10:07)
[2016-09-25] MEDS ORDERED: ZOFRAN4 MG PO (10:08)
[2016-09-25] MEDS ORDERED: FLORAJEN3 CAPS460 MG PO (10:08)
[2016-09-25] MEDS ORDERED: PEPCID20 MG PO (10:08)
[2016-09-25] MEDS ORDERED: CALMOSEPTINE OI71 GM TOPICAL (10:09)
[2016-09-25] MEDS ORDERED: VANCOMYCIN250 MG/51 PO (10:14)
[2016-09-25 12:00] VITALS: BP 121/89
--- NOTE | 2016-09-25 13:29 | NUR ---
I HEAR PT YELLING FROM NURSES STATION IN ROOM. I WENT TO CHECK ON PT AND PT IS ASKING ME WHEN SHE IS LEAVING TO GO BACK TO [place]. I INFORMED PT THAT [facility] IS WORKING ON HER DISCHARGE PROCESS. PT STATES "I WANT TO GO NOW". I INFORMED PT THAT THE DISCHARGE PROCESS TAKES A LITTLE BIT OF TIME AND DOES NOT HAPPEN RIGHT AWAY. I INSTRUCTED PT TO NEXT TIME USE CALL LIGHT IF NEEDING TO ASK STAFF MEMBERS QUESTIONS INSTEAD OF YELLING CONTINUOUSLY FROM ROOM. CALL LIGHT SHOWED TO PT AND PLACED RIGHT BEDSIDE HER. WILL CONTINUE TO MONITOR.
--- NOTE | 2016-09-25 16:06 | NUR ---
WOUND CARE/ DRESSING CHANGE TO LEFT HEEL WOUND. NOTED SMALL BLUE/GREEN DRAINAGE WITHOUT ODOR. WET TO DRY DRESSING USING NS TO WOUND BED. COVERED WITH 4X4S AND SECURED WITH KERLIX. WOUND BED IS 25% RED, 25% PINK, 50% WELLS.
--- NOTE | 2016-09-25 16:58 | NUR ---
MINOO RIVERO/LEANA WITH RENAL TO ADVISE PT IS NOT DISCHARGING TODAY DUE TO NO INSURANCE CLEARANCE. AWAITING CALLBACK.
--- NOTE | 2016-09-25 18:13 | NUR ---
PT IS CURRENTLY LAYING IN BED ON BACK WITH EYES OPEN RESTING REQUESTING TO BE TURNED. NO NEED AT CURRENT TIME. WILL CONTINUE TO MONITOR.
[2016-09-25 19:00] VITALS: BP 141/80
--- NOTE | 2016-09-25 19:00 | NUR ---
AWAKE. REQUESTED TO BE REPOSITIONED. IV IN L FA WITH NS INFUSING AT 10ML/HR. IN ISOLATION FOR CDIF. RT CHEST HEMESPLIT DRSG C/D/I. HAS CALL LIGHT AND BEDSIDE TABLE WITH PERSONAL ITEMS IN REACH.
--- NOTE | 2016-09-25 20:20 | NUR ---
ASSISTED GOLF INSTRUCTOR WITH CLEANING PATIENT FOR INCONTINENCE OF BOWEL.
--- NOTE | 2016-09-25 22:00 | NUR ---
REQUESTED ASSISTANCE WITH CHANGING CHANNELS ON TV.
[2016-09-26] VITALS: BP 159/88
--- NOTE | 2016-09-26 02:30 | NUR ---
HAS BEEN APPLE PICKER LIGHT APPROXIMATELY EVERY 15 MIN FOR VARIOUS REASON. MOSTLY ADJ IN BED.
--- NOTE | 2016-09-26 06:10 | NUR ---
C/O HEADACHE. ADMIN TRAMADOL.
[2016-09-26 06:31] LABS: BASOPHILS 0.2 % (0-2); EOSINOPHILS 0.7 % (0-7); HEMATOCRIT 29.6 % (36.0-48.0); HEMOGLOBIN 9.4 g/dL (12-16); IMMATURE GRANULOCYTES 1.5 % (0-5); LYMPHOCYTES 22.1 % (15-50); MCH 29.2 pg (26.0-34.0); MCHC 31.8 g/dL (31.0-37.0); MCV 91.9 fL (80.0-100.0); MEAN PLATELET VOLUME 8.7 fL (7.4-10.4); MONOCYTES 9.5 % (2-11); PLATELET COUNT 187 10x3/uL (130-400); RBC 3.22 10x6/uL (4.00-5.40); RDW 20.8 % (11.5-14.5); WBC 8.2 10x3/uL (4.8-10.8)
[2016-09-26 06:41] LABS: CALCIUM 8.2 mg/dL (8.5-10.1); CARBON DIOXIDE 25.2 mmol/L (21.0-32.0); CREATININE - SERUM 5.1 mg/dL (0.6-1.3); VANCOMYCIN - RANDOM 20.8 ug/mL (10.0-20.0)
[2016-09-26 06:43] LABS: ANION GAP 15.8 mmol/L (8-16)
[2016-09-26 08:00] VITALS: BP 162/86
--- NOTE | 2016-09-26 09:00 | NUR ---
SPOKE WITH PATIENT AT LENGTH ABOUT THE PLAN OF CARE FOR TODAY. SHE UNDERSTANDS THAT SHE WON'T BE DISCHARGED TO THE REHAB IN [place] UNTIL AFTER SHE'S RECEIVED DIALYSIS HERE. REPOSITIONED HER WITH THE HELP OF A HELICOPTER REPAIRER ONTO HER RIGHT SIDE, PILLOWS USED FOR COMFORT. THE DRESSING IS INTACT TO HER LEFT HEEL, NO SOILING NOTED AT THIS TIME. SHE TOOK HER ORAL MEDICATIONS ALL AT ONCE WITHOUT DIFFICULTY NOTED. SHE DID NOTHING TO ASSIST WITH HER POSITIONING, GIVING DIRECTIONS ON HOW TO PLACE THE PILLOW UNDER HER HEAD. HER CALL LIGHT IS WITHIN HER REACH. MONITORING. STATE WILDLIFE OFFICER NOTIFIED OF HER DESIRE TO TALK WITH HIM.
[2016-09-26] MEDS ORDERED: POTASSIUM CHLO10 ME1 PO (11:27)
[2016-09-26 13:26] VITALS: BP 149/89
--- NOTE | 2016-09-26 13:56 | NUR ---
SPOKE WITH CARMEN/RN WITH IR VIA PHONE TO ADVISE APPT FOR PT WITH [facility] ON 10/12/16 NEEDED TO BE RESCHEDULED PT WOULD BE IN DIALYSIS IN [place] AT THAT TIME. CARMEN ADVISED SHE WOULD HAVE TO LOOK AT OCTOBER'S SCHEDULE AND SHE WOULD CALL [facility] IN [place] TO LET THEM KNOW OF HER NEW APPT TIME WHEN AVAILABLE.
--- NOTE | 2016-09-26 14:01 | NUR ---
Patient Name: WESLEY SMITH Encounter No: [id number] : 1945 Primary Insurance: [employer] MEDICARE ADV Anticipated DC Date: 09-25-2016 Planned Disposition: Retirement Facility External Planned Provider: [facility] MEDIC[facility] REHAB B[facility] DCP follow-up note: CM RECEIVED MESSAGE FROM SHABBIR, [facility] PT TODAY, INITIAL AUTH FOR ONE WEEK RECEIVED FOR SKILLED SERVICES. CM FAXED DISCHARGE INFORMATION TO [facility]IA [facility] AT [phone]. PT REPORTS SPEAKING TO HER FAMILY LAST NIGHT AND TODAY, THEY ARE AWARE. PT IS IN AGREEMENT WITH DISCHARGE TODAY TO [facility]. CM ASKED PT NOT TO YELL OUT AND REVIEWED HOW TO USE NURSE CALL LIGHT. PT REPORTED UNDERSTANDING. BEDSIDE NURSE, VICE PRESIDENT OF FINANCE NURSE AND ROXANNA MENDEZ RENAL NOTIFIED. NURSE REPORT TO BE CALLED TO [facility] AT [phone]. PT TO TRANSPORT VIA AMBULANCE. Issa Bennett, CASE MANAGEMENT
[2016-09-26 16:00] VITALS: BP 149/92
--- NOTE | 2016-09-26 17:58 | NUR ---
PATIENT NOTIFIED THAT THE EMS WILL BE HERE TO TRANSPORT HER IN 3 HOURS PER PHONE CALL RECEIVED. SHE VOICED UNDERSTANDING.
--- NOTE | 2016-09-26 19:13 | NUR ---
PATIENT RELEASED TO REHAB [facility] VIA [facility]
== END 2016-09-26 19:14 | DRG 673 ==
LOC: D.M2 13:40
PROVIDERS: General Practice; Internal Medicine; ADMIT Internal Medicine Nephrology
PROC: 02HV33Z Insertion of Infusion Device into Superior Vena Cava, Percutaneous Approach (ICD-10-PCS; principal; 2016-08-31)
PROC: B548ZZA Ultrasonography of Superior Vena Cava, Guidance (ICD-10-PCS; 2016-08-31)
PROC: 5A1D60Z (ICD-10-PCS; 2016-08-31)
PROC: 0JBR0ZZ Excision of Left Foot Subcutaneous Tissue and Fascia, Open Approach (ICD-10-PCS; 2016-09-06)
PROC: 02H633Z Insertion of Infusion Device into Right Atrium, Percutaneous Approach (ICD-10-PCS; 2016-09-06)
PROC: 0QBM0ZZ Excision of Left Tarsal, Open Approach (ICD-10-PCS; 2016-09-19)
PROC: 047L3DZ Dilation of Left Femoral Artery with Intraluminal Device, Percutaneous Approach (ICD-10-PCS; 2016-09-22)
DX: I12.0 Hypertensive chronic kidney disease with stage 5 chronic kidney disease or end stage renal disease (principal); N18.6 End stage renal disease; M86.172 Other acute osteomyelitis, left ankle and foot; N17.9 Acute kidney failure, unspecified; E11.22 Type 2 diabetes mellitus with diabetic chronic kidney disease; I25.10 Atherosclerotic heart disease of native coronary artery without angina pectoris; E03.9 Hypothyroidism, unspecified; D63.1 Anemia in chronic kidney disease; E87.6 Hypokalemia; E11.69 Type 2 diabetes mellitus with other specified complication; E11.621 Type 2 diabetes mellitus with foot ulcer; Z99.2 Dependence on renal dialysis; I48.91 Unspecified atrial fibrillation; E83.51 Hypocalcemia; I08.1 Rheumatic disorders of both mitral and tricuspid valves; L89.620 Pressure ulcer of left heel, unstageable; B95.61 Methicillin susceptible Staphylococcus aureus infection as the cause of diseases classified elsewhere; B96.4 Proteus (mirabilis) (morganii) as the cause of diseases classified elsewhere; R62.7 Adult failure to thrive; I77.1 Stricture of artery

== ENCOUNTER 2017-11-15 10:08 | Day surgery (SDC) | payer MEDICARE, MEDICAID ==
[~2017-11-15] VITALS: Ht 167.6 cm; Wt 88.2 kg
--- NOTE | ~2017-11-15 | OP ---
PATIENT NAME: WESLEY SAMANIEGO MEDICAL RECORD: [id number] :[birth year] LOCATION:[facility] ADMISSION DATE: SURGEON: DONAL RICHARDSON MD DATE OF OPERATION: 11/15/2017 PROCEDURE: EGD with biopsy. REFERRING PHYSICIAN: Nestor Alonso in [place], [place]. INDICATIONS: Ms. Samaniego is a pleasant 72-year-old woman with a history of heartburn and nausea. She presents for outpatient EGD. PREMEDICATIONS: Total IV anesthesia (propofol 100 mg). INSTRUMENT: Olympus video gastroscope. PROCEDURE AND FINDINGS: After receiving informed consent, Ms. Samaniego's posterior pharynx was anesthetized with Cetacaine spray. She was placed in left lateral decubitus position and sedated as per anesthesia. After achieving an adequate level of sedation, gastroscope was introduced per orally and advanced to the duodenum without difficulty. Esophageal mucosa was without erythema, ulcers, strictures, or masses; appeared normal down the GE junction. The antral mucosa was mildly erythematous and antral biopsies were obtained. There were no lesions seen in the cardia, fundus, body, or antrum of the stomach. Pylorus was patent and competent. Duodenal mucosa was notable for mild patchy erythema through to the second portion. The gastroscope was then withdrawn. Ms. Samaniego tolerated the procedure well. No immediate complications. ASSESSMENT: 1. Normal esophageal mucosa. 2. Mild gastritis. 3. Mild duodenitis. RECOMMENDATIONS: 1. Avoid nonsteroidal anti-inflammatory drugs. 2. Omeprazole 20 mg daily for 3 months. TRANSINT:[id number] Voice Confirmation ID: [id number] DOCUMENT ID: [id number] DONAL RICHARDSON MD at 1808 CC: [id number] DICTATION DATE: 11/29/17 1522 COLOR CHECKER ROVING OR YARN: 11/29/17 1538 [facility] 11/15/[address] [address]
[~2017-11-15 10:08] MED LIST: ASPIRIN81 MG PO; CALMOSEPTINE OI71 GM TOPICAL; CARDIZEM CD120 MG PO; FLORAJEN3 CAPS460 MG PO; PEPCID20 MG PO; PLAVIX75 MG PO; POTASSIUM CHLO10 ME1 PO; RYTHMOL SR225 MG PO; ULTRAM50 MG PO; VANCOMYCIN250 MG/51 PO; ZOFRAN4 MG PO
[2017-11-15 10:47] LABS: HEMATOCRIT 36.8 % (36.0-48.0); HEMOGLOBIN 11.5 g/dL (12-16); MCH 33.2 pg (26.0-34.0); MCHC 31.3 g/dL (31.0-37.0); MCV 106.4 fL (80.0-100.0); MEAN PLATELET VOLUME 9.1 fL (7.4-10.4); RBC 3.46 10x6/uL (4.00-5.40); RDW 18.8 % (11.5-14.5); WBC 7.5 10x3/uL (4.8-10.8)
[2017-11-15 12:22] VITALS: BP 105/65; Ht 167.6 cm; Wt 88.2 kg
[2017-11-15] MEDS ORDERED: NEURONTIN 300300 MG PO (12:33)
[2017-11-15] MEDS ORDERED: HYDROCO/APAP TAB 10- (12:34)
== END 2017-11-15 15:39 | disposition home or self-care (01) ==
LOC: D.OPS 10:08
PROVIDERS: Anesthesiology
DX: R12 Heartburn (principal); K52.9 Noninfective gastroenteritis and colitis, unspecified; R11.0 Nausea; R14.2 Eructation; R63.4 Abnormal weight loss

== ENCOUNTER 2018-04-15 08:32 | Outpatient (CLI) | payer MEDICARE, MEDICAID ==
[~2018-04-15] VITALS: Ht 162.6 cm; Wt 92.7 kg
--- NOTE | ~2018-04-15 | HEMODYNAMI ---
PATIENT:WESLEY SMITH MEDICAL RECORD: [id number] : 47 [id number] ADMISSION DATE: 04/15/18 Generatedon:04/15/201813:01 Patient name: WESLEY SMITH Patient #: [id number] SSN: DO B: 1945 Date of study: 04/15/2018 Page: Of Hemodynamic Procedure Report Patient Data Patient Demographics Procedure consent was obtained First Name: WESLEY Gender: Female Last Name: SARAH : 1945 Patient #: [id number] Age: 72 year(s) Race: Black Additional ID: [id number] Contact details Address: [address] [place] [address] State: [place] City: [place] Zip code: [address] Past Medical History Allergies: No known allergies Admission Admission Data Admission Date: 04/15/2018 Admission Time: 8:32 Height (in.): 64 BSA: 1.97 (m2) Height (cm.): 162.56 BMI: 35.02 (kg/m2) Weight (lbs.): 204 Weight (kg.): 92.53 Procedure Procedure Types Cath Procedure Peripheral Cath Diagnostic Procedure Personal Service Representative Peripheral Procedures Fistula Mechanical Thrombectomy Procedure Description Procedure Date Procedure Date: 04/15/2018 Procedure Start Time: 11:49 Procedure Staff Name Function Andi Wiggins MD Performing Physician Shivani Fraga RT Development Analyst Farhana Briceno RN Nurse Yosi Tracy RT Scrub Macey Garcia RN Nurse Procedure Data Cath Procedure Fluoroscopy Diagnostic fluoroscopy Total fluoroscopy Time: 4.5 time: 4.5 min min Diagnostic fluoroscopy Total fluoroscopy dose: 581 dose: 581 mGy mGy Contrast Material Contrast Material Type Amount (ml) Isovue 300 155 Diagnostic catheters Device Type Used For End Catheter Placement Merit Impress KA 2 5Fr 40CM catheter ([id number]) Procedure Medications Medication Administration Route Dosage Heparin Flush Bag added to field 2 bags (1000units/500ml NS) Lidocaine 1% added to field 20 Versed I.V. 0.5 mg Fentanyl I.V. 25 mcg Heparin Bolus I.V. 3000 units Fentanyl I.V. 25 mcg Versed I.V. 0.5 mg Hemodynamics Rest BSA: 1.97 (m2) O2 Consumption: Estimated: 174.72 (ml/min) O2 Consumption indexed : Estimated:88.69 (ml/min/m) Heart Rate: 61 (bpm) Snapshots Pre Cath Intra NCS Post Cath Vital Signs Time Heart Resp SPO2 etCO2 NIBP (mmHg) Rhythm Pain Sedation Rate (ipm) (%) (mmHg) Status Level (bpm) 11:39:43 70 15 97 0 137/79(117) NSR 0 (11) 10(A) , No pain 11:44:13 58 16 97 0 139/70(98) NSR 0 (11) 10(A) , No pain 11:48:40 57 16 40.2 134/75(100) NSR 0 (11) 10(A) , No pain 11:53:06 57 13 99 39.5 126/78(102) NSR 0 (11) 9(A) , No pain 11:57:26 58 11 100 43.2 123/75(98) NSR 0 (11) 9(A) , No pain 12:01:40 61 18 99 44 128/83(102) NSR 0 (11) 9(A) , No pain 12:06:39 68 28 98 45.5 Measuring NSR 0 (11) 9(A) , No pain 12:07:00 67 24 99 46.2 138/87(104) NSR 0 (11) 9(A) , No pain 12:11:24 74 13 98 45.5 146/87(116) NSR 0 (11) 9(A) , No pain 12:15:58 65 16 100 41 130/69(113) NSR 0 (11) 9(A) , No pain 12:20:25 66 13 100 43.2 129/68(107) NSR 0 (11) 9(A) , No pain 12:24:45 62 20 100 42.4 113/76(96) NSR 0 (11) 9(A) , No pain 12:29:03 59 14 100 41.7 121/69(103) NSR 0 (11) 9(A) , No pain 12:33:23 62 34 98 43.2 127/75(100) NSR 0 (11) 9(A) , No pain 12:37:45 63 23 99 43.2 125/76(95) NSR 0 (11) 9(A) , No pain 12:42:07 66 14 99 38.7 121/75(102) NSR 0 (11) 9(A) , No pain 12:46:29 65 17 99 40.9 127/69(98) NSR 0 (11) 9(A) , No pain 12:50:47 64 12 99 46.2 118/67(94) NSR 0 (11) 9(A) , No pain 12:55:06 62 12 100 41.7 120/67(104) NSR 0 (11) 9(A) , No pain 12:59:30 68 12 100 41.7 128/62(106) NSR 0 (11) 9(A) , No pain Medications Time Medication Route Dose Verified Delivered Reason Notes Effe ctiveness by by 11:41:50 Heparin Flush added 2 Andi Escamilla used for Bag to bags Rosalie Wiggins MD procedure (1000units/500ml field NS) 11:42:02 Lidocaine 1% added 20ml Andi Escamilla for local to vial Rosalie Wiggins MD anesthetic field 11:52:47 Versed I.V. 0.5 Andi Delcid for mg Janak Wiggins RN sedation 11:52:56 Fentanyl I.V. 25 Andi Delcid for mcg Janak Wiggins RN sedation 12:03:23 Heparin Bolus I.V. 3000 Andi Delcid used for units Janak Wiggins RN procedure 12:32:11 Fentanyl I.V. 25 Andi Delcid for mcg Janak Wiggins RN sedation 12:32:19 Versed I.V. 0.5 Andi Delcid for mg Janak Wiggins RN sedation Procedure Log Time Note 11:20:23 Patient Height : 64 inches 11:20:27 Patient Weight : 204 lbs 11:23:33 Use device set IR Diagnostic 11:23:54 DOC .035 wire ([id number]) opened to sterile field. 11:23:55 Micropuncture VSI 4FR kit opened to sterile field. 11:23:56 Tegaderm 4 x 4 (1626W) opened to sterile field. 11:23:57 Sterile Angiographic Pack opened to sterile field. 11:23:57 Bag Decanter (2002S) opened to sterile field. 11:32:00 Time tracking: Regular hours (M-F 7:00 - 5:00) 11:32:18 Plan of Care:Hemodynamics will remain stable., Cardiac rhythm will remain stable., Comfort level will be maintained., Respiratory function will remain adequate., Patient/ family verbilizes understanding of procedure., Procedure tolerated without complication., Recovers from procedure without complications.. 11:32:25 Patient received from Outpatients to IR Alert and oriented. Tansferred to table in Supine position. 11:32:27 Correct patient and procedure confirmed by team. 11:32:30 Signed procedure consent form obtained from patient. 11:32:39 H&P Date Dictated: 04/15/2018 Within 30 days and on chart.. 11:32:41 Pre-procedure instructions explained to patient. 11:32:42 Pre-op teaching completed and patient verbalized understanding. 11:32:44 Family in waiting room. 11:32:46 Patient NPO since Midnight. 11:32:56 Patient allergic to No known allergies 11:33:42 Is the patient allergic to Iodine/contrast media? No. 11:33:45 Is patient on blood thinner?No 11:33:49 Patient diabetic? Yes. 11:33:51 If diabetic: On Metformin? No 11:33:53 - 11:33:54 ----Pre-sedation anethsthesia assessment.---- 11:33:57 Previous problem with sedation/anesthesia? No ? 11:34:01 Snore? Yes 11:34:10 Sleep apnea? No 11:34:14 Deviated septum? No 11:34:17 Opens mouth fully? Yes 11:34:19 Sticks out tongue? Yes 11:34:22 Airway obstruction? No ? 11:34:27 Dentures? No ? 11:34:41 IV patent on arrival in right wrist with D5/.45%NaCl at [facility]. 11:34:49 Left Arm area was prepped with chlora-prep and draped in sterile fashio n 11:34:55 - 11:35:20 - 11:37:37 St Tremaine 6FR 5cm sheath opened to sterile field. 11:38:16 ECG and BP/O2 sat monitors applied to patient. 11:38:18 Vital chart was started 11:38:30 Baseline sample Acquired. 11:38:36 Full Disclosure recording started 11:38:42 - 11:41:50 Heparin Flush Bag (1000units/500ml NS) 2 bags added to field was administered by Andi Wiggins MD; used for procedure; 11:42:02 Lidocaine 1% 20ml vial added to field was administered by Andi Wiggins MD; for local anesthetic; 11:48:46 Physician arrived 11:48:53 --------ALL STOP TIME OUT------ 11:48:54 Final Timeout: patient, procedure, and site verified with staff and physician. All members of the team are in agreement. 11:49:05 Procedure started. 11:49:10 Local anesthetic to left arm with Lidocaine 1% by Andi Wiggins MD.INITIAL ACCESS ONLY 11:52:10 GLIDE CATHETER 5FR ANGLED 65cm (CG507) opened to sterile field. 11:52:16 Venous access obtained using ultrasound guidance. 11:52:47 Versed 0.5 mg I.V. was administered by Farhana Briceno RN; for sedation; 11:52:56 Fentanyl 25 mcg I.V. was administered by Farhana Briceno RN; for sedation ; 12:03:23 Heparin Bolus 3000 units I.V. was administered by Farhana Briceno RN; use d for procedure; 12:04:22 GLIDE WIRE ANGLE 180cm (KJ4712) opened to sterile field. 12:04:23 FUNES 260 wire (M98181) opened to sterile field. 12:04:34 TORQUE DEVICE PLASTIC .038 ( TD01) opened to sterile field. 12:04:43 INFLATOR BasixTOUCH (OY6297) opened to sterile field. 12:05:54 Inflate balloon Inflation number: 1 A Evercross 8 x 40 x 80 ([id number]) was prepped and advanced across the Undefined1, then inflated.. 12:07:56 Inflate balloon Inflation number: 2 A Evercross 10 x 40 x 80 Balloon ([id number]) was prepped and advanced across the Undefined1, then inflated. 12:10:42 Inflate balloon Inflation number: 3 A Evercross 10 x 60 x 135 Balloon ([id number]) was prepped and advanced across the Undefined1, then inflated . 12:27:42 St Tremaine 6FR 5cm sheath opened to sterile field. 12:27:53 AMPLATZ Super Stiff 75cm wire ([id number]) opened to sterile field. 12:30:15 A Capos [place] KA 2 5Fr 40CM catheter ([id number]) was advanced over the wire and used for . 12:30:16 GLIDE WIRE Angled Super Stiff 180cm (KC5323) opened to sterile field. 12:32:11 Fentanyl 25 mcg I.V. was administered by Farhana Briceno RN; for sedation ; 12:32:19 Versed 0.5 mg I.V. was administered by Farhana Briceno RN; for sedation; 12:34:30 Inflate balloon Inflation number: 1 A Evercross 4 x 4 x 135 Balloon ([id number]) was prepped and advanced across the Undefined2, then inflated. 12:41:45 Inflate balloon Inflation number: 1 A Evercross 6 x 4 x 135 Balloon ([id number]) was prepped and advanced across the Undefined3, then inflated . 12:55:46 SUTURE ETHILON 2-0 BLK MONO FS opened to sterile field. 12:55:57 Procedure ended.(Physican Out) 12:56:09 Fluoroscopy time 04.50 minutes. 12:56:14 Flurop Dose total: 581 12:56:14 Fluoroscopy dose: 581 mGy 12:56:24 Contrast amount:Isovue 300 155ml. 12:56:27 Procedure and supply charges have been captured, reviewed, submitted an d are correct. 13:01:23 Vital chart was stopped Intervention Summary Intervention Notes Time ActionType Lesion and Equipment Used Action# Pressure Duration Attributes 12:05:54 Inflate Undefined1 Evercross 8 x 1 0 00:00 balloon 40 x 80 ([id number]) 12:07:56 Inflate Undefined1 Evercross 10 x 2 0 00:00 balloon 40 x 135 Balloon ([id number]) 12:10:42 Inflate Undefined1 Evercross 10 x 3 0 00:00 balloon 40 x 135 Balloon ([id number]) 12:34:30 Inflate Undefined2 Evercross 4 x 4 1 0 00:00 balloon x 135 Balloon ([id number]) 12:41:45 Inflate Undefined3 Evercross 6 x 4 1 0 00:00 balloon x 135 Balloon ([id number]) Device Usage Item Name Manufacture Quantity Catalog Number Hospital Part Current M inimal Lot# / Charge Number Stock Stock Serial# Code DOC .035 wire Cook Medical 1 [id number] 869620 947891 5 ([id number]) Micropuncture VSI VASCULAR 1 7266V 428659 531072 5 VSI 4FR kit SOLUTIONS Tegaderm 4 x 4 3M 1 1626W 697369 075707 958758 5 (1626W) Sterile Cardinal 1 [id number] 215592 021954 5 Angiographic Health Pack Bag Decanter Microtek 1 981108 96183 094383 5 () Medical Inc. St Tremaine 6FR 5cm St Tremaine 2 962287 739277 495444 5 [id number] sheath [id number] GLIDE CATHETER Terumo 1 CG507 829253 979704 5 5FR ANGLED 65cm (CG507) GLIDE WIRE Terumo 1 GG9227 286421 350765 059417 5 ANGLE 180cm (XJ0039) FUNES 260 wire Cook Medical 1 Q29362 883631 24054 714222 5 9671820 (R45187) TORQUE DEVICE Pine [place]not 1 TD01 223480 398753 380769 5 PLASTIC .038 ( Scientific TD01) INFLATOR Merit 1 YB9550 896031 758853 270870 5 BasixTOAssay Depot Medical (ZW8324) Evercross 8 x Medtronic 1 [id number] 678169 476649 023058 5 [id number] 40 x 80 ([id number]) Evercross 10 x Medtronic 2 [id number] 150046 265835 099134 5 [id number] 40 x 135 [id number] Balloon ([id number]) AMPLATZ Super [place] 1 [id number] 474868 154242 888949 5 Stiff 75cm wire Scientific ([id number]) Merit Impress Merit 1 10980RY9 191502 073881 5 [id number] KA 2 5Fr 40CM Medical catheter ([id number]) GLIDE WIRE Terumo 1 MN3932 212101 263331 5 Angled Super Stiff 180cm (YK6902) Evercross 4 x 4 Medtronic 1 [id number] 440122 884288 053715 5 [id number] x 135 Balloon ([id number]) Evercross 6 x 4 Medtronic 1 [id number] 201286 936815 399664 5 x 135 Balloon ([id number]) SUTURE ETHILON Ethicon 1 664H 371725 124830 5 2-0 BLK MONO FS Signature Audit [place] Stage Time Signature Unsigned Intra-Procedure 04/15/2018 Shivani Fraga 1:01:20 PM RT(R) [facility] [address] [facility] [place] [address]
[~2018-04-15 08:32] MED LIST changes: +HYDROCO/APAP TAB 10-; +NEURONTIN 300300 MG PO
[2018-04-15 09:29] LABS: BASOPHILS 0.2 % (0-2); EOSINOPHILS 6.9 % (0-7); HEMATOCRIT 32.9 % (36.0-48.0); HEMOGLOBIN 10.6 g/dL (12-16); IMMATURE GRANULOCYTES 0.2 % (0-5); LYMPHOCYTES 39.6 % (15-50); MCH 36.1 pg (26.0-34.0); MCHC 32.2 g/dL (31.0-37.0); MCV 111.9 fL (80.0-100.0); MONOCYTES 5.7 % (2-11); NEUTROPHILS 47.4 % (40-80); PLATELET COUNT 217 10x3/uL (130-400); RBC 2.94 10x6/uL (4.00-5.40); RDW 15.4 % (11.5-14.5); WBC 5.1 10x3/uL (4.8-10.8)
[2018-04-15 09:34] LABS: ANION GAP 23.1 mmol/L (8-16); CALCIUM 7.7 mg/dL (8.5-10.1); CARBON DIOXIDE 22.6 mmol/L (21.0-32.0); CREATININE - SERUM 16.8 mg/dL (0.6-1.3); POTASSIUM - SERUM 5.7 mmol/L (3.5-5.1)
[2018-04-15 09:42] LABS: APTT 25.7 SECONDS (22.8-39.4); INR 1.01 (0.85-1.17); PROTIME 12.8 SECONDS (11.6-15.0)
[2018-04-15 10:28] VITALS: Ht 162.6 cm; Wt 92.7 kg
--- NOTE | 2018-04-15 13:35 | NUR ---
PT REC'D FROM IR. DRESSING TO LEFT ARM C/D/I. LEMON AGUA CALIENTE COLA PROVIDED.
--- NOTE | 2018-04-15 14:05 | NUR ---
IV D/C'D CATH INTACT. SEE FREQUENT VSS FOR LIST OF VS.
--- NOTE | 2018-04-15 14:50 | NUR ---
TOLERATED DIET. D/C INSTRUCTIONS EXPLAINED. VOICED UNDERSTANDING. COPIES OF ALL GIVEN. PT D/C'D VIA W/C TO [facility].
== END 2018-04-15 15:00 | disposition home or self-care (01) ==
LOC: D.RAD 08:32 → D.SP 08:32 → D.RAD 11:00 → D.SP 15:00
PROVIDERS: General Practice
DX: T82.858A Stenosis of other vascular prosthetic devices, implants and grafts, initial encounter (principal); Y83.8 Other surgical procedures as the cause of abnormal reaction of the patient, or of later complication, without mention of misadventure at the time of the procedure; N18.6 End stage renal disease

== ENCOUNTER 2019-01-21 20:35 | Inpatient (IN) | payer MEDICARE, MEDICAID ==
[~2019-01-21] VITALS: Ht 162.6 cm; Wt 111.4 kg
--- NOTE | 2019-01-21 20:50 | NUR ---
PT HAD LARGE RUNNY GREEN B/M CUSTODIAL HERE FROM [place]. PT CLEANSED, LINEN CHANGED. DR CABALLERO HERE TO SEE PATIENT.
--- NOTE | 2019-01-21 21:15 | NUR ---
RECEIVED PT VIA STRETCHER FROM [facility] IN ER. B/O 134/72, HR 78, RR 18, O2 96 ON RA. L ARM FISTULA, R AC PIV SALINE LOCKED. PT ALERT AND ORIENTED. PERSONAL BELONGINGS AT BEDSIDE. DIALYSIS NURSE AT BEDSIDE TO START EMERGENT DIALYSIS. DR CABALLERO AT BEDSIDE, UPDATE GIVEN AND NEW ORDERS RECEIVED.
[2019-01-21 21:42] VITALS: BP 134/72; BMI 39.2
[2019-01-21 22:00] VITALS: BP 137/71
--- NOTE | 2019-01-21 22:00 | NUR ---
ADMISSION HISTORY AND ADMISSION ASSESSMENT COMPLETE. VSS, NO SIGNS OF ACUTE DISTRESS NOTED. DIALYSIS NURSE AT BEDSIDE. CALL LIGHT IN REACH, WILL MONITOR.
[2019-01-21 23:00] VITALS: BP 121/61
[2019-01-21 23:30] LABS: ANION GAP 25.6 mmol/L (8-16); CALCIUM 7.7 mg/dL (8.5-10.1); CARBON DIOXIDE 18.5 mmol/L (21.0-32.0)
[2019-01-21 23:37] LABS: CREATININE - SERUM 20.1 mg/dL (0.6-1.3)
[2019-01-21 23:39] LABS: POTASSIUM - SERUM 8.1 mmol/L (3.5-5.1)
--- NOTE | 2019-01-21 23:44 | NUR ---
DR.DESOTO HENNESSY R/T CRITICAL k+ LAB RESULT
[2019-01-22] VITALS (12 sets, daily range): BP systolic 82–154; BP diastolic 49–91; Ht 162.6 cm; Wt 111.4 kg
--- NOTE | 2019-01-22 00:03 | NUR ---
DR. CABALLERO REPAGED.
--- NOTE | 2019-01-22 00:05 | NUR ---
CRITICAL POTASSIUM CALLED TO DR CABALLERO, NEW ORDERS RECEIVED. WILL CONTINUE PLAN OF CARE.
--- NOTE | 2019-01-22 01:45 | NUR ---
ANGEL, DIALYSIS NURSE AT BEDSIDE TO START DIALYSIS.
--- NOTE | 2019-01-22 03:00 | NUR ---
REASSESSMENT COMPLETE, SEE FLOWSHEET. ANGEL, DIALYSIS NURSE AT BEDSIDE. VSS, NO SIGNS OF ACUTE DISTRESS NOTED. DENIES ANY NEEDS AT THIS TIME, WILL MONITOR.
--- NOTE | 2019-01-22 03:40 | NUR ---
DIALYSIS NURSE TO DRAW AM LABS, SEND TO LAB. FSBS 93, NO INSULIN NEEDED PER SLIDING SCALE.
[2019-01-22 04:04] LABS: BASOPHILS 0 % (0-2); EOSINOPHILS 4.5 % (0-7); HEMATOCRIT 28.5 % (36.0-48.0); HEMOGLOBIN 9.5 g/dL (12-16); IMMATURE GRANULOCYTES 0.2 % (0-5); LYMPHOCYTES 36.2 % (15-50); MCH 37.4 pg (26.0-34.0); MCHC 33.3 g/dL (31.0-37.0); MCV 112.2 fL (80.0-100.0); MEAN PLATELET VOLUME 8.6 fL (7.4-10.4); MONOCYTES 7.5 % (2-11); NEUTROPHILS 51.6 % (40-80); PLATELET COUNT 221 10x3/uL (130-400); RBC 2.54 10x6/uL (4.00-5.40); RDW 15.6 % (11.5-14.5); WBC 5.1 10x3/uL (4.8-10.8)
[2019-01-22 04:11] LABS: CALCIUM 8.2 mg/dL (8.5-10.1)
[2019-01-22 04:15] LABS: ANION GAP 16.8 mmol/L (8-16); CREATININE - SERUM 9.9 mg/dL (0.6-1.3); POTASSIUM - SERUM 3.8 mmol/L (3.5-5.1)
--- NOTE | 2019-01-22 05:00 | NUR ---
CHG BATH AND LINEN CHANGE COMPLETE. VSS, NO SIGNS OF ACUTE DISTRESS NOTED. CALL LIGHT IN REACH, WILL CONTINUE TO MONITOR.
--- NOTE | 2019-01-22 06:30 | NUR ---
DR CABALLERO AT BEDSIDE, UPDATE GIVEN.
--- NOTE | 2019-01-22 07:00 | NUR ---
BEDISDE REPORT RECEIVED. ASSESSMENT COMPLETED PER FLOWSHEET, SEE FLOWSHEET FOR ADDITIONAL INFORMATION. RENAL DIET ORDERED, PT EATING BREAKFAST. NO NEEDS OR DISTRESS NOTED AT THIS TIME. VSS. WILL CONT TO MONITOR.
--- NOTE | 2019-01-22 08:30 | NUR ---
[facility]
[2019-01-23 05:44] LABS: BASOPHILS 0.2 % (0-2); EOSINOPHILS 5.9 % (0-7); HEMATOCRIT 24.3 % (36.0-48.0); HEMOGLOBIN 7.9 g/dL (12-16); LYMPHOCYTES 36.7 % (15-50); MCH 37.1 pg (26.0-34.0); MCHC 32.5 g/dL (31.0-37.0); MCV 114.1 fL (80.0-100.0); MEAN PLATELET VOLUME 8.7 fL (7.4-10.4); MONOCYTES 10.7 % (2-11); NEUTROPHILS 46.5 % (40-80); PLATELET COUNT 182 10x3/uL (130-400); RBC 2.13 10x6/uL (4.00-5.40); RDW 15.5 % (11.5-14.5); WBC 5.1 10x3/uL (4.8-10.8)
[2019-01-23 06:16] LABS: ANION GAP 19.5 mmol/L (8-16); CALCIUM 7.1 mg/dL (8.5-10.1); CARBON DIOXIDE 25.5 mmol/L (21.0-32.0)
[2019-01-23 06:25] LABS: CREATININE - SERUM 16.1 mg/dL (0.6-1.3); PHOSPHOROUS 9.1 mg/dL (2.5-4.9)
--- NOTE | 2019-01-23 06:50 | NUR ---
REPORT RECEIVED. ALERT ABLE TO VOICE NEEDS. BED IN LOWEST POSITION AND LOCKED. CAREPLAN REVIEW DONE WITH SAFETY PRECAUTIONS NOTED. SHE WAS ASSISTED OFF OF BEDPAN BY NIGHTSHIFT. DENIES ANY OTHER NEEDS AT THIS TIME CL IN REACH
[2019-01-23 08:12] LABS: HEPATITIS C ANTIBODY <0.1 S/CO RAT (0.0-0.9)
[2019-01-23] MEDS ORDERED: RENAGEL800 MG PO (10:34)
--- NOTE | 2019-01-23 11:05 | NUR ---
WHILE REVIEWING ADMISSION, PATIENT REPORTS TO HAVING FLU SHOT ALREADY THIS YEAR.
--- NOTE | 2019-01-23 14:45 | NUR ---
DISCHARGE PAPERS EXPLAINED IN DETAIL. SHE IS AWARE OF NEW MED AND WHERE TO TECHNOLOGIST DEVELOPMENT HER MEDICATION, SHE WILL CONTINUE ON DIALYSIS OUTPATIENT. SALINE LOCK D/C WITH CATH TIP INTACT NO BLEEDING NOTED. SHE WAS TRANSPORTED VIA W/C DOWN TO [facility] FOR TRANSPORT HOME. SHE OFFERS NO C/O UPON DISCHARGE.
--- NOTE | 2019-01-23 16:23 | MORECARE ---
CASE MANAGEMENT DISCHARGE SUMMARY PATIENT: WESLEY SMITH UNIT: [id number] ADM DATE: 01/21/19 AGE: 73 : 46 SEX: F ROOM/BED: D.2102 AUTHOR: JOCELYN JORDAN PHYSICIAN: REFERRING PHYSICIAN: VERITO CABALLERO MD DATE OF SERVICE: 01/23/19 Discharge Plan Patient Name: WESLEY SMITH Facility: [facility]:[place] : 1945 Planned Disposition: Home Anticipated Discharge Date: 01/23/19 Discharge Date: 01/23/2019 Expected LOS: 2 Initial Reviewer: [email or web address] Initial Review Date: 01/21/2019 Generated: 01/23/19 5:23 pm DCPIA - Discharge Planning Initial Assessment Updated by [email or web address]: Issa Bennett on 01/23/19 4:20 pm * Is the patient Alert and Oriented? Yes * How many steps to enter\exit or inside your home? * PCP DR. LUONG * Pharmacy [facility] IN [place] * Preadmission Environment Home with Family * ADLs Independent * Equipment Bedside Commode Cane Shower Chair * Other Equipment NO MEDICAL EQUIPMENT PROVIDER PREFERENCE * List name and contact numbers for known caregivers / representatives who currently or will assist patient after discharge: RIGOBERTO SMITH, SON, FLORENTINO CHAVARRIA, NIECE, * Verbal permission to speak to the caregivers and representatives has been obtained from the patient. N/A * Community resources currently utilized Other * Please name any agencies selected above. OUTPATIENT DIALYSIS, MWF, [facility], [facility] [place], [facility] * Additional services required to return to the preadmission environment? No * Can the patient safely return to the preadmission environment? Yes * Has this patient been hospitalized within the prior 30 days at any hospital? No Patient Name: WESLEY SMITH Page 61812 at 1623 All edits/amendments must be made on the electronic document DICTATION DATE: 01/23/191622 DISABILITY SPECIALIST: SEBASTIAN 01/23/191622 RPT#: [id number] DC DATE:01/23/19 STATUS: DIS IN [facility] [address] [place] [address] END OF REPORT
--- NOTE | 2019-01-23 16:31 | MORECARE ---
CASE MANAGEMENT DISCHARGE SUMMARY PATIENT: WESLEY SMITH UNIT: [id number] ADM DATE: 01/21/19 AGE: 73 : 46 SEX: F ROOM/BED: D.2109 AUTHOR: JOCELYN JORDAN PHYSICIAN: REFERRING PHYSICIAN: VERITO MEZA MD DATE OF SERVICE: 01/23/19 Discharge Plan Patient Name: WESLEY SMITH Facility: [facility]:[place] : 1945 Planned Disposition: Home Anticipated Discharge Date: 01/23/19 Discharge Date: 01/23/2019 Expected LOS: 2 Initial Reviewer: [email or web address] Initial Review Date: 01/21/2019 Generated: 01/23/19 5:31 pm Comments DCP- Discharge Planning Updated by [email or web address]: Issa Bennett on 01/23/19 3:[address] Patient Name: WESLEY SMITH Admission Status: ER Accout number: [id number] Admission Date: 01-21-2019 : 1945 Admission Diagnosis:HYPERKALEMIA Attending: Verito Meza Current LOS: 2 Anticipated DC Date: 01-23-2019 Planned Disposition: Home Primary Insurance: [employer] MEDICARE ADV Discharge Planning Comments: CM RECEIVED DISCHARGE ORDER AND ORDER TO ASSIST WITH TRANSPORT HOME. CM MET WITH PT IN ROOM TO DISCUSS DISCHARGE PLANNING AND NEEDS. PT REPORTS LIVING AT HOME INDEPENDENTLY WITH HER SPOUSE. PT HAS BEDSIDE COMMODE, CANE, ROLLING AND STANDARD WALKER WITH NO MEDICAL EQUIPMENT PROVIDER. PT HAS NO OUTSIDE SERVICES ASSISTING IN THE HOME. PT HAS DIALYSIS IN [facility], [facility], [facility]. CM DISCUSSED AVAILABILITY OF HOME HEALTH, REHAB SERVICES AND MEDICAL EQUIPMENT. PT DENIES DISCHARGE NEEDS OTHER THAN TRANSPORT HOME. PT STATES HER CANNOT PICK HER UP AND SHE HAS NO OTHER FAMILY OR FRIENDS TO ASSIST. PT DOES NOT HAVE MONEY FOR [employer]. PT HAS USED MEDICAID TRANSPORTATION IN THE PAST. CM CALLED MEDICAID TRANPSORTATION, , SPOKE TO RENATA AND ARRANGED TRANSPORT HOME. CONFIRM #[id number]. PT AND AUTOMOBILE DAMAGE FIELD APPRAISER NURSE NOTIFIED. Factory Focus Technician: Issa Bennett DCPIA - Discharge Planning Initial Assessment Updated by [email or web address]: Issa Bennett on 01/23/19 4:20 pm * Is the patient Alert and Oriented? Yes * How many steps to enter\exit or inside your home? * PCP DR. LUONG * Pharmacy [facility] IN [place] * Preadmission Environment Home with Family * ADLs Independent * Equipment Bedside Commode Cane Shower Chair * Other Equipment NO MEDICAL EQUIPMENT PROVIDER PREFERENCE * List name and contact numbers for known caregivers / representatives who currently or will assist patient after discharge: RIGOBERTO SMITH, SON, FLORENTINO CHAVARRIA, NIECE, * Verbal permission to speak to the caregivers and representatives has been obtained from the patient. N/A * Community resources currently utilized Other * Please name any agencies selected above. OUTPATIENT DIALYSIS, MWF, [facility], [facility] [place], [facility] * Additional services required to return to the preadmission environment? No * Can the patient safely return to the preadmission environment? Yes * Has this patient been hospitalized within the prior 30 days at any hospital? No Last DP export: 01/23/19 3:23 Patient Name: WESLEY SMITH Page 58038 at 1631 All edits/amendments must be made on the electronic document DICTATION DATE: 01/23/19 [address] RAKER: SEBASTIAN 01/23/191630 RPT#: [id number] DC DATE:01/23/19 STATUS: DIS IN [facility] [address] [place] [address] END OF REPORT
== END 2019-01-23 14:45 | disposition home or self-care (01) | DRG 640 ==
LOC: D.ER 20:35 → D.ICU 20:50 → D.M2 20:50
PROVIDERS: ADMIT Internal Medicine Nephrology; ATTEND Internal Medicine Nephrology
PROC: 5A1D70Z Performance of Urinary Filtration, Intermittent, Less than 6 Hours Per Day (ICD-10-PCS; principal; 2019-01-21)
DX: E87.5 Hyperkalemia (principal); N18.6 End stage renal disease; I12.0 Hypertensive chronic kidney disease with stage 5 chronic kidney disease or end stage renal disease; E11.22 Type 2 diabetes mellitus with diabetic chronic kidney disease; Z99.2 Dependence on renal dialysis; Z91.15 Patient's noncompliance with renal dialysis; E03.9 Hypothyroidism, unspecified; D63.1 Anemia in chronic kidney disease; E83.39 Other disorders of phosphorus metabolism

== ENCOUNTER 2019-06-09 08:44 | Inpatient (IN) | payer MEDICARE, MEDICAID ==
[~2019-06-09] VITALS: Ht 162.6 cm; Wt 102.2 kg
[2019-06-09] VITALS (41 sets, daily range): BP systolic 82–185; BP diastolic 42–105; BMI 41.3
--- NOTE | ~2019-06-09 | HEMODYNAMI ---
PATIENT:WESLEY SMITH MEDICAL RECORD: [id number] : 47 LOCATION:[facility] D.2309 ADMISSION DATE: 06/09/19 Generatedon:06/12/201910:46 Patient name: WESLEY SMITH Patient #: [id number] SSN: [id number] : 1945 Date of study: 06/12/2019 Page: Of Hemodynamic Procedure Report Patient Data Patient Demographics Procedure consent was obtained First Name: WESLEY Gender: Female Last Name: SARAH : 1945 Patient #: [id number] Age: 73 year(s) Race: Black SSN: [id number] Additional ID: [id number] Contact details [address]: [address] [place] [address] State: [place] City: [place] Zip code: [address] Past Medical History Allergies: No known allergies Admission Admission Data Admission Date: 06/09/2019 Admission Time: 9:16 Arrival Date: 06/12/2019 Arrival Time: 0:00 Admit Source: Other Room #: D.2309 Height (in.): 63.78 BSA: 2.05 (m2) Height (cm.): 162 BMI: 38.87 (kg/m2) Weight (lbs.): 224.87 Weight (kg.): 102 Lab Results Lab Result Date: 06/12/2019 Lab Result Time: 0:00 Biochemistry Name Units Result Min Max BUN mg/dl 27 --(----)-* 7 18 Creatinine mg/dl 8 --(----)-* 0.6 1.3 eGFR ml/min 6 *-(----)-- 90 120 AM CBC Name Units Result Min Max Hemoglobin g/dl 8.7 *-(----)-- 13.5 17.5 Procedure Procedure Types Cath Procedure Diagnostic Procedure C [facility] w/Coronaries Sedation Charges Moderate Sedation up to 15 minutes PCI Procedure Coronary Stent Coronary Stent Initial Hemochron ACT Test Procedure Description Procedure Date Procedure Date: 06/12/2019 Procedure Start Time: 10:17 Procedure End Time: 10:40 Procedure Staff Name Function Florentin Kennedy MD Performing Physician Margaret Mcmahan RT Monitor Eduar Art RN Nurse Jaimee Knapp RT Scrub Procedure Data Cath Procedure Fluoroscopy Diagnostic fluoroscopy Total fluoroscopy Time: 5.1 time: 5.1 min min Diagnostic fluoroscopy Total fluoroscopy dose: dose: 1128 mGy 1128 mGy Contrast Material Contrast Material Type Amount (ml) Isovue 300 105 Entry Location Entry Primary Successful Side Size Upsize Upsize Entry Closure Succes sful Closure Location (Fr) 1 (Fr) 2 (Fr) Remarks Device Remarks Femoral Right 5 Fr 6 Fr Exoseal artery Short Estimated blood loss: 5 ml Diagnostic catheters Device Type Used For End Catheter Placement MULTIPACK JL 4.0 5Fr Left Coronary catheter Angiography MULTIPACK 3DRC 5Fr Right Coronary catheter Angiography MULTIPACK Pigtail 5 Fr LV Angiography catheter Procedure Complications No complications Procedure Medications Medication Administration Route Dosage 0.9% NaCl I.V. 10 ml/hr Oxygen etCO2 Nasal cannula 2 l/min Heparin Flush Bag added to field 2 bags (1000units/500ml NS) Lidocaine 2% added to field 20 Benadryl I.V. 50 mg Versed I.V. 1 mg Fentanyl I.V. 50 mcg Versed I.V. 0.5 mg Heparin Bolus I.V. 63159 units Versed I.V. 0.5 mg Fentanyl I.V. 50 mcg Plavix P.O. 75 mg Hemodynamics Rest BSA: 2.05 (m2) HGB: 8.7 (g/dl) O2 Consumption: Estimated: 177.49 (ml/min) O2 Con sumption indexed: Estimated:86.58 (ml/min/m) Heart Rate: 56 (bpm) Pressure Samples Time Site Value (mmHg) Purpose Heart Use Rate(bpm) 10:26 LV 102/14,20 Snapshot 56 10:26 AO 90/51(66) Pullback 51 10:26 LV 108/10,7 Pullback 51 Gradients Valve Time Site 1 Site 2 Mean SEP/DFP Peak To Heart Use (mmHg) (sec/min) Peak Rate (mmHg) (bpm) Aortic 10:26 LV AO 8 13 18 51 108/10,7 90/51(66) Calculations Valve P-P Mean Valve Index Valve Source Name Gradient Area Flow (cm2) Aortic 18 8 18 8 Snapshots Pre Cath Intra NCS Post Cath Vital Signs Time Heart Resp SPO2 etCO2 NIBP (mmHg) Rhythm Pain Sedation Rate (ipm) (%) (mmHg) Status Level (bpm) 10:05:53 55 15 100 0 127/62(104) NSR 0 (11) 10(A) , No pain 10:09:59 53 15 100 0 118/68(88) NSR 0 (11) 10(A) , No pain 10:14:00 54 14 100 0 112/74(99) NSR 0 (11) 10(A) , No pain 10:18:57 55 20 100 0 103/72(87) NSR 0 (11) 10(A) , No pain 10:23:52 57 14 98 0 112/61(88) NSR 0 (11) 9(A) , No pain 10:27:56 58 14 99 0 115/60(83) NSR 0 (11) 9(A) , No pain 10:32:00 60 14 100 0 122/65(89) NSR 0 (11) 9(A) , No pain 10:36:08 57 11 99 0 116/60(85) NSR 0 (11) 10(A) , No pain 10:40:07 58 10 100 0 123/71(95) NSR 0 (11) 10(A) , No pain Medications Time Medication Route Dose Verified Delivered Reason Note s Effectiveness by by 10:09:34 0.9% NaCl I.V. 10 Eduar Eduar Per physician ml/hr Kaelyn Art RN RN 10:09:41 Oxygen etCO2 2 Eduar Eduar for low 02 sats Nasal l/min Kaelyn Art cannula RN RN 10:09:50 Heparin Flush added 2 bags Eduar Eduar used for Bag to Kaelyn Art procedure (1000units/500ml field CALLOWAY RN NS) 10:09:59 Lidocaine 2% added 20ml Eduar Eduar to sharp's to vial Kaelyn nowak RN RN 10:10:06 Benadryl I.V. 50 mg Eduar Eduar Per physician Kaelyn Art RN RN 10:16:23 Versed I.V. 1 mg Eduar Eduar for sedation Kaelyn Art RN RN 10:16:30 Fentanyl I.V. 50 mcg Eduar Eduar for sedation Kaelyn Art RN RN 10:26:46 Versed I.V. 0.5 mg Eduar Eduar for sedation Kaelyn Art RN RN 10:30:34 Heparin Bolus I.V. 10,000 Eduar Eduar for units Kaelyn Art anticoagulation RN RN 10:36:20 Versed I.V. 0.5 mg Eduar Eduar for sedation Kaelyn Art RN RN 10:36:25 Fentanyl I.V. 50 mcg Eduar Eduar for sedation Kaelyn Art RN RN 10:40:19 Plavix P.O. 75 mg Eduar Eduar for Kaelyn Art antiplatelet RN RN therapy Procedure Log Time Note 9:45:32 Arrival Date: 06/12/2019 12:00:00 AM 9:45:38 Admit Source: Other 9:45:44 Patient Height : 63.78 inches 9:45:52 Patient Weight : 224.87 lbs 9:47:03 Lab Result : Creatinine 8 mg/dl 9:47:03 Lab Result : BUN 27 mg/dl 9:47:03 Lab Result : Hemoglobin 8.7 g/dl 9:47:03 Lab Result : eGFR AM 6 ml/min 9:47:41 Procedure Status Urgent Heart Cath (IP). 9:47:43 Eduar Art RN sent for patient. Start room use. 9:47:44 Time tracking: Regular hours (M-F 7:00 - 5:00) 9:47:49 Plan of Care:Hemodynamics will remain stable., Cardiac rhythm will remain stable., Comfort level will be maintained., Respiratory function will remain adequate., Patient/ family verbilizes understanding of procedure., Procedure tolerated without complication., Recovers from procedure without complications.. 9:51:24 Patient received from ICU to CCL 2 Alert and oriented. Tansferred to table in Supine position. 9:51:39 H&P Date Dictated: 06/11/2019 Within 30 days and on chart., H&P Addendum completed by physician on day of procedure. (MUST COMPLETE FOR ALL OUTPATIENTS). 9:51:41 Pre-procedure instructions explained to patient. 9:51:51 Family in patients room. 9:51:52 Patient NPO since Midnight. 9:52:00 Patient allergic to No known allergies 9:52:08 Is the patient allergic to Iodine/contrast media? No. 9:52:09 Was the patient premedicated? Yes 10:00:39 Signed procedure consent form obtained from patient. 10:00:40 Warm blankets applied, and shawnee hugger turned on for patient comfort. 10:00:41 Correct patient and procedure confirmed by team. 10:00:41 ECG and BP/O2 sat monitors applied to patient. 10:00:47 Baseline sample Acquired. 10:03:06 Rhythm: sinus rhythm 10:03:10 Pre-op teaching completed and patient verbalized understanding. 10:03:14 Is patient on blood thinner?No 10:03:19 ACC The patient was administered the following blood thiners within the last 24 hours: None 10:03:26 Patient diabetic? Yes. 10:03:36 Snore? Yes 10:03:40 Previous problem with sedation/anesthesia? No ? 10:03:42 Sleep apnea? No 10:03:44 Deviated septum? No 10:03:45 Opens mouth fully? Yes 10:03:46 Sticks out tongue? Yes 10:03:49 Airway obstruction? No ? 10:03:53 Dentures? Yes out 10:03:58 Patient not . Patient is over age 55. 10:04:05 Pre procedure: right dorsailis pedis pulse 1+ Palpable, but thready & weak; easily obliterated 10:04:09 Patient pain scale 0/10 ?. 10:04:16 IV patent on arrival in right IJ with 0.9% NaCl at KVO. 10:04:26 Stress Test: no; N/A ? 10:04:35 ACC Patient presents with Unstable Angina CCS Anginal Class 2--Slight limitation of ordinary activity. 10:04:40 Vital chart was started 10:04:42 Baseline sample Acquired. 10:04:54 If diabetic: On Metformin? No 10:09:34 0.9% NaCl 10 ml/hr I.V. was administered by Eduar Art RN; Per physician; Verbal order read back and verified. 10:09:41 Oxygen 2 l/min etCO2 Nasal cannula was administered by Eduar Art RN; for low 02 sats; Verbal order read back and verified. 10:09:50 Heparin Flush Bag (1000units/500ml NS) 2 bags added to field was administered by Eduar Art RN; used for procedure; Verbal order read back and verified. 10:09:59 Lidocaine 2% 20ml vial added to field was administered by Eduar Art RN; to sharp's; Verbal order read back and verified. 10:10:06 Benadryl 50 mg I.V. was administered by Eduar Art RN; Per physician; Verbal order read back and verified. 10:11:33 Risk of Mortality: 0.5 10:11:39 Risk of blood transfusion: 27.4 10:11:44 Risk of VIC: 13.4 10:11:54 Right groin area was prepped with chlora-prep and draped in sterile fashion 10:11:55 Alarms reviewed by R. N. 10:11:55 Sharps counted by scrub and verified by R.N. 10:15:17 Physician arrived 10:15:17 --------ALL STOP TIME OUT------ 10:15:18 Final Timeout: patient, procedure, and site verified with staff and physician. All members of the team are in agreement. 10:15:19 Right groin site verified by team. 10:15:23 Fire Safety Assessment: A--An alcohol-based skin anteseptic being used preoperatively., C--Open oxygen or nitrous oxide is being used., D--An ESU, laser, or fiber-optic light is being used. 10:15:26 Physical assessment completed. ASA score P 2 - A patient with mild systemic disease as per Florentin Kennedy MD. 10:15:39 5) <15 or on dialysis Very severe, or end stage kidney failure. 10:16:17 Maximum allowable contrast dose (3.7 X eGFR X 0.75)13 ml. 10:16:21 Sedation plan: IV Moderate Sedation Medication:Versed, Fentanyl 10:16:23 Versed 1 mg I.V. was administered by Eduar Art RN; for sedation; Verbal order read back and verified. 10:16:30 Fentanyl 50 mcg I.V. was administered by Eduar Art RN; for sedation; Verbal order read back and verified. 10:16:33 Use device set Femoral Dx 10:16:35 ACIST Syringe (47325) opened to sterile field. 10:16:35 Bag Decanter (2002S) opened to sterile field. 10:16:36 Medline Cath Pack ([id number]) opened to sterile field. 10:16:37 ACIST Hand Control (18836) opened to sterile field. 10:16:38 ACIST Manifold (01435) opened to sterile field. 10:16:38 DIAGNOSTIC Multipack 5Fr catheter set (EM5593) opened to sterile field. 10:16:39 Tegaderm 4 x 4 (1626W) opened to sterile field. 10:16:40 SHEATH 5FR [place] (WUQ816) opened to sterile field. 10:16:41 EMERALD Guide Wire (680-977) opened to sterile field. 10:16:55 Procedure started. 10:16:56 Full Disclosure recording started 10:17:04 Local anesthetic to right femoral artery with Lidocaine 2% by Florentin Kennedy MD.INITIAL ACCESS ONLY 10:20:09 A 5 Fr sheath was inserted into the Right Femoral artery 10:20:16 A MULTIPACK JL 4.0 5Fr catheter was advanced over the wire and used for Left Coronary Angiography. 10:20:44 LCA angiography performed. 10:20:47 Injector settings: Ml/sec: 3, Volume: 6, 10:21:42 Catheter removed. 10:21:47 A MULTIPACK 3DRC 5Fr catheter was advanced over the wire and used for Right Coronary Angiography. 10:24:05 RCA angiography performed. 10:24:11 Injector settings: Ml/sec: 3, Volume: 6, 10:24:54 Catheter removed. 10:25:03 A MULTIPACK Pigtail 5 Fr catheter was advanced over the wire and used for LV Angiography. 10:25:35 SHEATH 6FR [place] ([id number]) opened to sterile field. 10:25:35 INFLATOR Merit BasixCompak (OG6801) opened to sterile field. 10:25:36 Asahi Minamo 300cm wire opened to sterile field. 10:26:40 LV hemodynamics recorded. 10:26:42 LV gram done using HUNTER 10::44 Injector settings: Ml/sec: 5, Volume: 15, 10:26:46 Versed 0.5 mg I.V. was administered by Eduar Art RN; for sedation; Verbal order read back and verified. 10:26:48 EF : 60 % 10:26:49 ACCDominant side:Right 10:26:50 Catheter removed. 10:26:51 Proceeding to intervention. 10::58 Sheath upsized to a 6 Fr Short. 10:27:03 ACC Pre-intervention LEONELA Flow is 3. 10:27:45 GUIDE 6FR XBLAD 3.5 catheter ([id number]) opened to sterile field. 10:28:13 Pre PCI Site: [place] pLAD has 80% stenosis. 10:28:21 6 Fr xblad 3.5 guide catheter was inserted over the wire 10:30:34 Heparin Bolus 10,000 units I.V. was administered by Eduar Art RN; for anticoagulation; Verbal order read back and verified. 10:33:45 minamo wire advanced. 10:33:47 Wire advanced across lesion. 10:35:48 Place stent Inflation Number: 1 A COBRA RX 3.0 X 30 Stent was prepped and advanced across the Prox LAD 80. The stent was deployed at 15 MCKENNA for 0:10 (min:sec) 0. 10:36:13 Stent catheter was removed intact over wire. 10:36:13 Wire removed. 10:36:13 Guide catheter removed. 10:36:20 Versed 0.5 mg I.V. was administered by Eduar Art RN; for sedation; Verbal order read back and verified. 10:36:21 EXOSEAL 6Fr (EX600) opened to sterile field. 10:36:25 Fentanyl 50 mcg I.V. was administered by Eduar Art RN; for sedation; Verbal order read back and verified. 10:36:30 ACC Post-intervention LEONELA Flow is 3. 10:36:36 Post PCI Site: [place] pLAD has 0% stenosis. 10:36:44 Sheath removed intact; hemostasis achieved with Exoseal to the Right Femoral artery. 10:36:46 Procedure ended.(Physican Out) 10:38:22 Fluoroscopy time 05.10 minutes. :38:28 Fluoroscopy dose: 1128 mGy 10:38:28 Flurop Dose total: 1128 10:38:34 Dose Area Product 96440 mGy/cm. 10:38:38 Contrast amount:Isovue 300 105ml. 10:38:40 Maximum allowable dose exceeded? No. 10:38:41 Sharps counted by scrub and verified by R.N. 10:38:58 Insertion/operative site no bleeding no hematoma. 10:39:00 Post-op/insertion site Right Femoral artery dressed using a 4 x 4 and Tegaderm. 10:39:02 Post Procedure Pulses reassessed and unchanged 10:39:04 Post procedure rhythm: unchanged. 10:39:07 Estimated blood loss: 5 ml 10:39:09 Post procedure instruction explained to patient.Patient verbalizes understanding. 10:39:09 Patient needs reinforcement of post procedure teaching. 10:39:31 Procedure type changed to Cath procedure, Diagnostic procedure, LHC, [facility] w/Coronaries, Sedation Charges, Moderate Sedation up to 15 minutes, PCI procedure, Coronary Stent, Coronary Stent Initial, Hemochron ACT Test 10:39:31 Procedure and supply charges have been captured, reviewed, submitted and are correct. 10:39:36 Procedure Complication : No complications 10:39:38 Vital chart was stopped 10:39:41 [facility] Findings: MVD- PCI performed (see procedure note) 10:39:43 Operative report dictated upon procedure completion. 10:39:43 See physician's report for complete and final results. 10:39:54 Report given to ICU. 10:40:06 Patient transfered to ICU with Stretcher. 10:40:08 Procedure ended. 10:40:08 Full Disclosure recording stopped 10:40:19 Plavix 75 mg P.O. was administered by Eduar Art RN; for antiplatelet therapy; Verbal order read back and verified. 10:40:24 ACC-PCI Only Patient was given prescriptions, or instructed by Florentin Kennedy MD to start/continue the following medications upon discharge: Plavix 10:40:27 End room use (Document Last) 10:43:07 End room use (Document Last) 10:43:29 End room use (Document Last) 10:44:21 ACT drawn and resulted at OOR seconds. (normal therapeutic range 180-240 seconds). Intervention Summary Intervention Notes Time ActionType Lesion and Equipment Action# Pressure Duration Attributes Used 10:35:48 Place stent Prox LAD COBRA RX 1 15 00:10 3.0 X 30 Stent Device Usage Item Name Manufacture Quantity Catalog Hospital Part Current Minimal Lot# / Number Charge Number Stock Stock Serial# Code ACIST Syringe Acist 1 01455 473276 872902 096535 20 (59296) Medical Systems Inc Bag Decanter Microtek 1 2001S 430266 23920 367804 5 (2001S) Medical Inc. Medline Cath Medline 1 [id number] 425064 45723 805648 5 Pack ([id number]) ACIST Hand Acist 1 56024 927682 501046 519658 5 Control Medical (96172) Systems Inc ACIST Manifold Acist 1 09307 153196 521327 599089 5 (03203) Medical Systems Inc DIAGNOSTIC Cardinal 1 WI7550 189084 29062 835280 30 Multipack 5Fr Health catheter set (LP7140) Tegaderm 4 x 4 3M 1 1626W 312966 685788 255757 5 (1626W) SHEATH 5FR Terumo 1 [id number] 061096 481378 886666 5 [place] (RKV144) EMERALD Guide Cardinal 1 502-455 806486 017802 431837 5 Wire (502-455) Health MULTIPACK JL Cardinal 1 919691 5 4.0 5Fr Health catheter MULTIPACK 3DRC Cardinal 1 846886 5 5Fr catheter Health MULTIPACK Cardinal 1 341531 5 Pigtail 5 Fr Health catheter SHEATH 6FR Terumo 1 JFM734 629523 731803 765130 40 [place] (RMN924) INFLATOR Merit Merit 1 EM4488 418359 936986 923512 15 [facility] (EM0613) [facility] Intecc 1 [id number] 140489 9341472 946038 0 300cm wire GUIDE 6FR Cardinal 1 [id number] 763823 664299 201533 10 XBLAD 3.5 Health catheter ([id number]) COBRA RX 3.0 X Celonova 1 174109 [id number] [id number] 3 [id number] 30 stent Biosciences () EXOSEAL 6Fr Cardinal 1 EX600 525700 135713 335954 10 (EX600) Health Signature Audit [place] Stage Time Signature Unsigned Intra-Procedure 06/12/2019 Jaimee Knapp 10:43:07 AM RT(R) Intra-Procedure 06/12/2019 Eduar 10:43:29 AM Kaelyn CALLOWAY Intra-Procedure 06/12/2019 Florentin Kennedy MD 10:46:12 AM Signatures Performing Physician : Signature : Florentin Kennedy MD Date : Time : Monitor : Margaret Martir Signature : RT Date : Time : Nurse : Eduar Lorigan Signature : RN Date : Time : [place] [address] [place] [address]
[~2019-06-09 08:44] MED LIST changes: -HYDROCO/APAP TAB 10-; +HYDROCO/APAP TAB 10- PO; +RENAGEL800 MG PO
[2019-06-09 08:57] LABS: BASOPHILS 0.3 % (0-2); EOSINOPHILS 4.2 % (0-7); HEMOGLOBIN 10.8 g/dL (12-16); IMMATURE GRANULOCYTES 0.1 % (0-5); LYMPHOCYTES 27.6 % (15-50); MCHC 32.7 g/dL (31.0-37.0); MCV 106.8 fL (80.0-100.0); MEAN PLATELET VOLUME 8.6 fL (7.4-10.4); MONOCYTES 5.5 % (2-11); NEUTROPHILS 62.3 % (40-80); RBC 3.09 10x6/uL (4.00-5.40); RDW 18.1 % (11.5-14.5); WBC 7.2 10x3/uL (4.8-10.8)
[2019-06-09 08:58] LABS: PLATELET COUNT 319 10x3/uL (130-400)
[2019-06-09 09:10] LABS: INR 1.02 (0.85-1.17); PROTIME 13.3 SECONDS (11.6-15.0)
--- NOTE | 2019-06-09 09:51 | NUR ---
CALCIUM GLUCONATE STARTED IN ICU
--- NOTE | 2019-06-09 10:18 | NUR ---
PATIENT ARRIVED TO UNIT. SEE ADMISSION ASSESSMENT. PATIENT ARRIVED TO UNIT WITH L SHOULDER IV ACCESS. L ARM RESERVE. DIALYSIS NURSE AT BEDSIDE. WILL CONTINUE TO MONITOR.
--- NOTE | 2019-06-09 10:38 | NUR ---
3 ATTEMPTS TO GET IV IN PATIENT. NO SUCCESS. WILL TRY AGAIN AFTER DIALYSIS.
--- NOTE | 2019-06-09 12:53 | NUR ---
DR ARTEAGA AT BEDSIDE
--- NOTE | 2019-06-09 13:49 | NUR ---
patient turned per request
[2019-06-09 13:57] LABS: CALC OSMOLALITY 302 mosm/kg (275-300); CALCIUM 8.9 mg/dL (8.5-10.1); CARBON DIOXIDE 23.6 mmol/L (21.0-32.0); CHLORIDE - SERUM 100 mmol/L (98-107); CREATININE - SERUM 18.1 mg/dL (0.6-1.3); GLUCOSE 97 mg/dL (74-106); SODIUM 136 mmol/L (136-145); UREA NITROGEN 99 mg/dL (7-18); eGFR NON AFRICAN AMERICAN 2 mL/min (90-120)
[2019-06-09 14:00] LABS: POTASSIUM - SERUM 10.1 mmol/L (3.5-5.1)
[2019-06-09 14:23] LABS: ALBUMIN 3.5 g/dL (3.4-5.0); ALKALINE PHOSPHATASE 89 U/L (30-120); ALT (SGPT) 8 U/L (10-68); BILIRUBIN - TOTAL 0.32 mg/dL (0.2-1.3); CKMB 4.1 U/L (0.0-3.6); CREATINE KINASE 87 UL (21-215); MAGNESIUM - SERUM 3.3 mg/dL (1.8-2.4)
[2019-06-09 14:25] LABS: TROPONIN-I 0.723 ng/mL (0.000-0.060)
--- NOTE | 2019-06-09 14:52 | NUR ---
dr freedman aware of potassium critical lab
--- NOTE | 2019-06-09 16:57 | NUR ---
new orders from dr jin. a-line. vasopressin. stat echo
--- NOTE | 2019-06-09 17:29 | NUR ---
paged dr oleary
--- NOTE | 2019-06-09 17:29 | NUR ---
called pharmacy stated to call noah chapman then noah thompson told me to call [facility] because their still here. called [facility]. no one will answer.
--- NOTE | 2019-06-09 17:29 | NUR ---
called dr jin for update
--- NOTE | 2019-06-09 18:05 | NUR ---
patient lethargic. somewhat oriented. she is oriented to time and place. does not know or remember why she is here. reoriented. pads attathed to patient.
--- NOTE | 2019-06-09 18:07 | NUR ---
dr oleary called again
--- NOTE | 2019-06-09 18:33 | NUR ---
ANESTHESIA PAGED BACK
--- NOTE | 2019-06-09 19:00 | NUR ---
Report received from off going nurse. Pt is laying in bed. Pt is responsive and talking at this time. DR. Mae present, new orders received. Pt's vss at this time. no s/s of distress. Will continue to monitor.
[2019-06-09 19:17] LABS: BASOPHILS 0.3 % (0-2); EOSINOPHILS 2.4 % (0-7); HEMATOCRIT 32.2 % (36.0-48.0); HEMOGLOBIN 10.8 g/dL (12-16); IMMATURE GRANULOCYTES 0.4 % (0-5); LYMPHOCYTES 20.8 % (15-50); MCH 35.8 pg (26.0-34.0); MCHC 33.5 g/dL (31.0-37.0); MCV 106.6 fL (80.0-100.0); MEAN PLATELET VOLUME 8.5 fL (7.4-10.4); MONOCYTES 6.3 % (2-11); NEUTROPHILS 69.8 % (40-80); PLATELET COUNT 290 10x3/uL (130-400); RBC 3.02 10x6/uL (4.00-5.40); RDW 17.8 % (11.5-14.5)
[2019-06-09 19:18] LABS: WBC 10.7 10x3/uL (4.8-10.8)
[2019-06-09 19:56] LABS: CALCIUM 8.7 mg/dL (8.5-10.1); CARBON DIOXIDE 21.1 mmol/L (21.0-32.0)
[2019-06-09 19:58] LABS: CREATININE - SERUM 11.2 mg/dL (0.6-1.3)
[2019-06-09 19:59] LABS: ANION GAP 23.3 mmol/L (8-16); POTASSIUM - SERUM 6.4 mmol/L (3.5-5.1)
[2019-06-09 20:00] LABS: TROPONIN-I 0.518 ng/mL (0.000-0.060)
--- NOTE | 2019-06-09 21:00 | NUR ---
Pt is resting in bed with eyes closed at this time. PT will awaken with effort. VSS at this time. Anesthesia present attempting to obtain art line at this time for closer BP monitoring. No s/s of distress noted. Will continue to monitor.
--- NOTE | 2019-06-09 23:00 | NUR ---
Reassessment completed, see flowsheet for details. Pt is laying in bed with eyes closed. Pt awakens to stimuli. No further needs noted. NO s/s of distress. Will continue to monitor.
[2019-06-10] VITALS (97 sets, daily range): BP systolic 56–161; BP diastolic 31–102; Ht 162.6 cm; Wt 102.2 kg
--- NOTE | 2019-06-10 01:00 | NUR ---
Pt is laying in bed with eyes open. Pt knows where she is and why. Pt said she was thankful that she is alive. Repositioned per request. No s/s of distress noted. Will continue to monitor.
--- NOTE | 2019-06-10 03:00 | NUR ---
Reassessment complete, see flowsheet for details. Pt is laying in bed with eyes open watching tv. No needs voiced. No s/s of distress. Will continue to monitor.
--- NOTE | 2019-06-10 05:00 | NUR ---
Pt is laying in bed with eyes closed. No s/s of distress noted. Will continue to monitor.
[2019-06-10 05:09] LABS: ALBUMIN 3.5 g/dL (3.4-5.0); ANION GAP 20.6 mmol/L (8-16); BILIRUBIN - TOTAL 0.29 mg/dL (0.2-1.3); CALCIUM 8.4 mg/dL (8.5-10.1); CARBON DIOXIDE 25.2 mmol/L (21.0-32.0); CREATININE - SERUM 12.6 mg/dL (0.6-1.3)
[2019-06-10 05:25] LABS: POTASSIUM - SERUM 6.8 mmol/L (3.5-5.1)
--- NOTE | 2019-06-10 11:00 | NUR ---
PT ABOUT TO RECEIVE DIALYSIS. DIALYSIS NURSE IN ROOM WITH PT.
--- NOTE | 2019-06-10 11:11 | NUR ---
DR BANUELOS CALLED TO DETERMINE IF PT NEEDED BOTH ACHS AND Q6 INSULIN ORDERS. ORDER RECEIVED TO D/C Q6 BLOOD SUGARS.
--- NOTE | 2019-06-10 13:25 | NUR ---
DR REED AT BEDSIDE. UPDATE GIVEN. WILL CONTINUE TO MONITOR
--- NOTE | 2019-06-10 13:38 | NUR ---
CALLED DR LEYVA WITH CONSULT FOR MT OF LEFT ARM FISTULA.
--- NOTE | 2019-06-10 15:15 | NUR ---
PT GIVEN CHG BATH AND CLEANED UP BM. NEW LINENS. PT HAS NO COMPLAINTS AT THIS TIME. WILL CONTINUE TO MONITOR
--- NOTE | 2019-06-10 18:28 | NUR ---
PT IN BED COMPLAINING OF LEG PAIN. HEART MONITOR SHOWED TACHYCARDIA IN THE 160'S. THEN BACK DOWN TO 100'S. PT STATED THAT SHE HAS A HX OF AFIB. WILL CONTINUE TO MONITOR AND IF HR BECOMES EXTREMELY TACHY AGAIN WILL CONTACT CARDIOLOGY.
--- NOTE | 2019-06-10 18:40 | NUR ---
DR JUAN HENNESSY. UPDATE GIVEN. ORDERS RECEIVED.
--- NOTE | 2019-06-10 23:00 | NUR ---
REASSESSMENT COMPLETED PER FLOW SHEET WITH NO ACUTE DISTRESS OBSERVED. VSS. CALL LIGHT IN REACH. TURNED AND POSITIONED FOR COMFORT
[2019-06-11] VITALS (63 sets, daily range): BP systolic 86–165; BP diastolic 41–146
--- NOTE | 2019-06-11 01:00 | NUR ---
RESTING WITH EYES CLOSED, EASILY ROUSED AND ALERT. VSS. CALL LIGHT IN REACH
--- NOTE | 2019-06-11 03:00 | NUR ---
REASSESSMENT COMPLETED PER FLOW SHEET WITH NO ACUTE DISTRESS OBSERVED. VSS. CALL LIGHT IN REACH
--- NOTE | 2019-06-11 05:00 | NUR ---
RESTING WITH EYES CLOSED, EASILY ROUSED AND ALERT. VSS.
[2019-06-11 06:03] LABS: CALCIUM 8.1 mg/dL (8.5-10.1); CARBON DIOXIDE 28.2 mmol/L (21.0-32.0)
[2019-06-11 06:12] LABS: BASOPHILS 0.2 % (0-2); EOSINOPHILS 6.8 % (0-7); HEMATOCRIT 26.6 % (36.0-48.0); HEMOGLOBIN 8.7 g/dL (12-16); IMMATURE GRANULOCYTES 0.3 % (0-5); LYMPHOCYTES 41.2 % (15-50); MCH 34.8 pg (26.0-34.0); MCHC 32.7 g/dL (31.0-37.0); MCV 106.4 fL (80.0-100.0); MEAN PLATELET VOLUME 8.8 fL (7.4-10.4); MONOCYTES 12.6 % (2-11); NEUTROPHILS 38.9 % (40-80); PLATELET COUNT 237 10x3/uL (130-400); RDW 17.9 % (11.5-14.5)
[2019-06-11 06:15] LABS: POTASSIUM - SERUM 4.2 mmol/L (3.5-5.1); WBC 6.3 10x3/uL (4.8-10.8)
[2019-06-11 09:44] LABS: CHOL - HDL RATIO 5.9 ratio (2.3-4.1); LDL-HDL RATIO 3.8 ratio (1.5-3.5)
--- NOTE | 2019-06-11 10:30 | NUR ---
PT SIGNED CONSENTS FOR MARKETING PROFESSOR TOMORROW AND FOR BLOOD IF NEEDED.
--- NOTE | 2019-06-11 11:57 | MORECARE ---
CASE MANAGEMENT DISCHARGE SUMMARY PATIENT: WESLEY SMITH UNIT: [id number] ADM DATE: 06/09/19 AGE: 73 : 46 SEX: F ROOM/BED: D.2309 AUTHOR: JOCELYN JORDAN PHYSICIAN: REFERRING PHYSICIAN: ZBIGNIEW REED MD DATE OF SERVICE: 06/11/19 Discharge Plan Patient Name: WESLEY SMITH [facility] [facility] 1945 Planned Disposition: Home with Home Health Anticipated Discharge Date: Discharge Date: Expected LOS: Initial Reviewer: [email or web address] Initial Review Date: 06/10/2019 Generated: 06/11/19 12:57 pm Patient Name: WESLEY SMITH Page [phone] at 1157 All edits/amendments must be made on the electronic document DICTATION DATE: 06/11/19 1157 CROSS TIE CUTTER: SEBASTIAN 06/11/19 1157 RPT#: [id number] DC DATE: STATUS: ADM IN [facility] [address] [place] [address] END OF REPORT
--- NOTE | 2019-06-11 12:15 | MORECARE ---
CASE MANAGEMENT DISCHARGE SUMMARY PATIENT: WESLEY SAMANIEGO UNIT: [id number] ADM DATE: 06/09/19 AGE: 73 : 46 SEX: F ROOM/BED: D.2309 AUTHOR: NIKKI,DOC PHYSICIAN: REFERRING PHYSICIAN: ZBIGNIEW REED MD DATE OF SERVICE: 06/11/19 Discharge Plan Patient Name: WESLEY SAMANIEGO Facility: [facility]:[place] : 1945 Planned Disposition: Home with Home Health Anticipated Discharge Date: Discharge Date: Expected LOS: Initial Reviewer: [email or web address] Initial Review Date: 06/10/2019 Generated: 06/11/19 1:15 pm Comments DCP- Discharge Planning Updated by [email or web address]: Leonor Butts on 06/11/19 11:[address] Late Entry 06/10/19 Patient Name: WESLEY SAMANIEGO Admission Status: Elective Accout number: [id number] Admission Date: 06-09-2019 : 1945 Admission Diagnosis: Attending: ZBIGNIEW REED Current LOS: 1 Anticipated DC Date: Planned Disposition: Home with Home Health Primary Insurance: [employer] ADV Discharge Planning Comments: CM met with patient to complete initial dc planning assessment. CM educated patient on the CM role and verbal consent given by patient to complete assessment. Patient lives at home with her and son where she is independent with her care. At discharge patient plans to return home and feels this is a safe discharge. CM discussed availability of home health, rehab services, and medical equipment. Patient has dialysis MWF in [place]. She states her spouse takes her to dialysis. Patient has [facility] and plans to resume care GREGORIO signed. Patient stated she may need assistance with transportation home. CM asked patient if she has used the [employer] bus for transportation she stated "no". Patient denied known discharge needs at this time. CM will continue to follow and will assist as needed with dc plans/needs. Greeting Card Maker: Leonor Butts DCPIA - Discharge Planning Initial Assessment Updated by [email or web address]: Leonor Butts on 06/11/19 12:09 pm * Is the patient Alert and Oriented? Yes * How many steps to enter\\exit or inside your home? * PCP Alicia Dias * Pharmacy [facility] * Preadmission Environment Home with Family * ADLs Independent * Equipment Bedside Commode * Other Equipment walker * List name and contact numbers for known caregivers / representatives who currently or will assist patient after discharge: Joseph Samaniego - son - [phone] * Verbal permission to speak to the caregivers and representatives has been obtained from the patient. Yes * Community resources currently utilized Home Health * Please name any agencies selected above. [facility] * Additional services required to return to the preadmission environment? No * Can the patient safely return to the preadmission environment? Yes * Has this patient been hospitalized within the prior 30 days at any hospital? No Last DP export: 06/11/19 10:57 a Patient Name: WESLEY SAMANIEGO Page [phone] at 1215 All edits/amendments must be made on the electronic document DICTATION DATE: 06/11/19 1215 CHISEL GRINDER: SEBASTIAN 06/11/19 1215 RPT#: [id number] DC DATE: STATUS: ADM IN [facility] [address] [place] [address] END OF REPORT
--- NOTE | 2019-06-11 12:23 | MORECARE ---
CASE MANAGEMENT DISCHARGE SUMMARY PATIENT: WESLEY SAMANIEGO UNIT: [id number] ADM DATE: 06/09/19 AGE: 73 : 47 SEX: F ROOM/BED: D.2309 AUTHOR: NIKKI,DOC PHYSICIAN: REFERRING PHYSICIAN: ZBIGNIEW REED MD DATE OF SERVICE: 06/11/19 Discharge Plan Patient Name: WESLEY SAMANIEGO Facility: [facility]:[place] : 1945 Planned Disposition: Home with Home Health Anticipated Discharge Date: Discharge Date: Expected LOS: Initial Reviewer: [email or web address] Initial Review Date: 06/10/2019 Generated: 06/11/19 1:23 pm Comments DCP- Discharge Planning Updated by [email or web address]: Leonor Butts on 06/11/19 11:[address] Late Entry 06/10/19 Patient Name: WESLEY SAMANIEGO Admission Status: Elective Accout number: [id number] Admission Date: 06-09-2019 : 1945 Admission Diagnosis: Attending: ZBIGNIEW REED Current LOS: 1 Anticipated DC Date: Planned Disposition: Home with Home Health Primary Insurance: [employer] MED[employer] ADV Discharge Planning Comments: CM met with patient to complete initial dc planning assessment. CM educated patient on the CM role and verbal consent given by patient to complete assessment. Patient lives at home with her and son where she is independent with her care. At discharge patient plans to return home and feels this is a safe discharge. CM discussed availability of home health, rehab services, and medical equipment. Patient has dialysis MWF in [place]. She states her spouse takes her to dialysis. Patient has [facility] and plans to resume care GREGORIO signed. Patient stated she may need assistance with transportation home. CM asked patient if she has used the [employer] bus for transportation she stated "no". Patient denied known discharge needs at this time. CM will continue to follow and will assist as needed with dc plans/needs. [employer] Supervisor: Leonor Butts DCPIA - Discharge Planning Initial Assessment Updated by [email or web address]: Leonor Butts on 06/11/19 12:09 pm * Is the patient Alert and Oriented? Yes * How many steps to enter\\exit or inside your home? * PCP Alicia Dias * [facility] * Preadmission Environment Home with Family * ADLs Independent * Equipment Bedside Commode * Other Equipment walker * List name and contact numbers for known caregivers / representatives who currently or will assist patient after discharge: Joseph Samaniego - son - [phone] * Verbal permission to speak to the caregivers and representatives has been obtained from the patient. Yes * Community resources currently utilized Home Health * Please name any agencies selected above. [facility] * Additional services required to return to the preadmission environment? No * Can the patient safely return to the preadmission environment? Yes * Has this patient been hospitalized within the prior 30 days at any hospital? No Coverage Notice Reviewer: [id number] Taras Butts Notice Issued Date-Time: 06/10/2019 12:18 Notice Type: Patient Choice Letter Notice Delivered To: Patient Relationship to Patient: Inspector Structural Bonding Name: Delivery Method: - Jessica Days: Prior Verbal Notification: Recipient Understood Notice: Recipient Signature: Med Rec Note Co-signed by Attending: Coverage Notice Comment: [facility] Last DP export: 06/11/19 11:15 a Patient Name: WESLEY SAMANIEGO Page [phone] at 1223 All edits/amendments must be made on the electronic document DICTATION DATE: 06/11/19 122 PATIENT REGISTRAR: SEBASTIAN 06/11/19 1223 RPT#: [id number] DC DATE: STATUS: ADM IN [facility] [address] [place] [address] END OF REPORT
--- NOTE | 2019-06-11 13:37 | NUR ---
PT RESTING IN BED. TURNED TO LEFT SIDE PER PATIENT REQUEST. BP HOLDING OFF LEVOPHED. WILL CONTINUE TO MONITOR
--- NOTE | 2019-06-11 14:37 | NUR ---
PT GOT CHG BATH. TOLERATED WELL. HELPED WASH ABDOMEN. BP STILL HOLDING OFF LEVOPHED. WILL CONTINUE TO MONITOR
--- NOTE | 2019-06-11 18:50 | NUR ---
recived bedside report at bedside. pt is resting in bed A&Ox4. vital signs are stable. no needs at this time. will perfrom full assessment and document. bed is low,side railsx2,call light within reach. will continue to monitor
--- NOTE | 2019-06-11 19:40 | NUR ---
dialysis is in pt room at this time. i provided pt with a fresh water and vanilla wafers for a snack sice she is to have a procedure in the morning and will be NPO after midnight. pt voices no pain or other needs at this time. vitals are stable. i also assisted her to her right side and used a pillow to prop her to relive pressure off her bottom. bed is low,side rasilx2,call light within reach. will contineu to monitor
--- NOTE | 2019-06-11 21:43 | NUR ---
dialysis is still in room. pt is resting with eyes closed. vitals are stable. bed is low,side rasilx2,call ligth within reach.will continue to monitor
--- NOTE | 2019-06-11 23:41 | NUR ---
PT IS RESTING IN BED WITH EYES CLOSED. VITAL SIGNS ARE STABLE. BED IS LOW,SIDE RAISLX2,CALL LIGHT WITHIN REACH. WILL CONTINUE TO MONITOR
[2019-06-12] VITALS (14 sets, daily range): BP systolic 70–123; BP diastolic 25–77
--- NOTE | 2019-06-12 00:54 | NUR ---
pt is resting in bed with eyes closed. i did help turn pt ath this time to her left side. vitals are stable. bed is low,side railsx2,call light within reach. will conitnue to monitor
--- NOTE | 2019-06-12 02:00 | NUR ---
pt is resting in bed with eyes closed. vitals are stable. bed is low,side railsx2,call light within reach. will continue to monitor
--- NOTE | 2019-06-12 04:23 | NUR ---
PT IS RESTING IN BED WITH EYES CLOSED. VITAL SIGNS ARE STABLE. BIPAP IS ON. BED IS LOW,SIDE RAILSX2,CALL LIGHT WITHIN REACH.WILL CONTINUE TO MONITOR
--- NOTE | 2019-06-12 04:24 | NUR ---
PT IS RESTING IN BED WITH EYES CLOSED ON LEFT SIDE. VITAL SIGNS ARE STABLE. BED IS LOW,SIDE RAISLX2,CALL LIGHT WITHIN REACH. WILL CONTINUE TO MONITOR
[2019-06-12 04:55] LABS: BASOPHILS 0.2 % (0-2); EOSINOPHILS 5.8 % (0-7); HEMATOCRIT 24.7 % (36.0-48.0); HEMOGLOBIN 8.2 g/dL (12-16); IMMATURE GRANULOCYTES 0.2 % (0-5); LYMPHOCYTES 39.3 % (15-50); MCH 35.2 pg (26.0-34.0); MCHC 33.2 g/dL (31.0-37.0); MEAN PLATELET VOLUME 8.7 fL (7.4-10.4); NEUTROPHILS 41.5 % (40-80); RBC 2.33 10x6/uL (4.00-5.40); RDW 17.6 % (11.5-14.5)
[2019-06-12 05:05] LABS: PLATELET COUNT 186 10x3/uL (130-400); WBC 4.6 10x3/uL (4.8-10.8)
--- NOTE | 2019-06-12 05:05 | NUR ---
PROVIDED FULL BED BATH WITH HCG BATH CLEANSE AND CHANGED ALL LINENS. ALSO SHAVED AND PREAPED GROIN AREAS FOR PROCEDURE TODAY. PT TOELRATED WELL WITH NO COMPLAINTS. VITALS REMAINE STABLE. BED IS LOW,SIDE RAISLX2,CALL LIGTH WITHIN REACH. WILL CONITNUE TO MONITOR
[2019-06-12 06:01] LABS: ANION GAP 11.9 mmol/L (8-16); CALCIUM 7.7 mg/dL (8.5-10.1); CARBON DIOXIDE 29.7 mmol/L (21.0-32.0); CREATININE - SERUM 6.1 mg/dL (0.6-1.3); POTASSIUM - SERUM 3.6 mmol/L (3.5-5.1)
--- NOTE | 2019-06-12 06:27 | NUR ---
PT IS STILL RESTING WITH EYES CLOSED. AWAKES EASILY THEN FALLS BACK TO SLEEP. BIPAP IS ON. VITAL SIGNS ARE STABLE. BED IS LOW,SIDE RAISLX2,CALL LIGHT WITHIN REACH.BED ALARM IS ON
--- NOTE | 2019-06-12 09:53 | NUR ---
patient gone to clinical laboratory service teacher. patient was not preoped. cath team stated they called an hour ago and spoke with mika. i was not aware.. no one told me they had called.
--- NOTE | 2019-06-12 11:05 | NUR ---
PATIENT BACK FROM EPIC AMBULATORY ANALYST
--- NOTE | 2019-06-12 11:19 | NUR ---
no s/s ofhematoma or bleeding.
--- NOTE | 2019-06-12 13:20 | NUR ---
spoke with dr jin and gave verbal order to transfer not discharge
--- NOTE | 2019-06-12 15:42 | NUR ---
no s/s of hemtoma. palp pulses bilat lower extremities
--- NOTE | 2019-06-12 16:46 | NUR ---
called report to wesley
--- NOTE | 2019-06-12 17:00 | NUR ---
NEW PATIENT ICU TRANSFER VIA BED. PATIENT IS AAO AND BEDFAST. PATIENT DENIES ANY NEEDS OR PAIN . ORIENTED PATIENT TO ROOM AND CALL LIGHT . WILL CONTINUE WITH PLAN OF CARE. SR UPX 2 BED IN LOW POSITIION AND CALL LIGHT IN REACH.
--- NOTE | 2019-06-12 18:23 | NUR ---
BROUGHT PT DOWN TO DIALYSIS VIA BED. NO CURRENT NEEDS.
--- NOTE | 2019-06-12 19:41 | NUR ---
EVENING ROUNDS COMPLETED. AAOX4, VSS, NO S/S OF RT PT RETURNED FROM DIALYSIS UNIT, STATES DIALYSIS WAS NOT DONE TODAY. WILL BE DONE IN THE AM. PT C/O OF HER BUTTOCKS HURT. HELPED TURNED PT ON HER LEFT SIDE. RIJ TRIALYSIS NOTED. PT DENIES ANY FURTHER NEEDS AT THIS TIME. WILL CPOC. CL WITHIN REACH, BED IN LOW, SR UP X2.
[2019-06-13] VITALS: BP 105/52
[2019-06-13 02:46] VITALS: BP 105/52
[2019-06-13 04:00] VITALS: BP 102/41
[2019-06-13 06:37] LABS: BASOPHILS 0.5 % (0-2); HEMATOCRIT 25.3 % (36.0-48.0); HEMOGLOBIN 8.3 g/dL (12-16); IMMATURE GRANULOCYTES 0.2 % (0-5); LYMPHOCYTES 33.8 % (15-50); MCHC 32.8 g/dL (31.0-37.0); MCV 106.8 fL (80.0-100.0); NEUTROPHILS 48.5 % (40-80); PLATELET COUNT 203 10x3/uL (130-400); RBC 2.37 10x6/uL (4.00-5.40); RDW 17.9 % (11.5-14.5); WBC 4.4 10x3/uL (4.8-10.8)
[2019-06-13 07:03] LABS: CALCIUM 7.8 mg/dL (8.5-10.1); CARBON DIOXIDE 25.9 mmol/L (21.0-32.0); CREATININE - SERUM 8.2 mg/dL (0.6-1.3); POTASSIUM - SERUM 3.9 mmol/L (3.5-5.1)
[2019-06-13 09:28] VITALS: BP 103/57
--- NOTE | 2019-06-13 09:58 | NUR ---
PT AND BLOOD TAKEN TO DIALYSIS. WILL CTM.
[2019-06-13 12:17] LABS: INR 0.96 (0.85-1.17); PROTIME 12.7 SECONDS (11.6-15.0)
--- NOTE | 2019-06-13 12:46 | NUR ---
Nutrition Follow-up: Noted plans for TDC tomorrow. HD today. Diet: Renal ADA PO intake: 25-50% Wt: 224.8# (06/11); 227# (06/10) Labs noted: K+ 3.9, Ca 7.8 Meds noted: Renagel -Continue current diet as tolerated. -Offer Nepro with meals. -Need new wt; noted daily wts ordered. -RD following.
--- NOTE | 2019-06-13 15:34 | NUR ---
PT TAKEN TO SURGERY AT THIS TIME.
--- NOTE | 2019-06-13 18:14 | NUR ---
I have reviewed this patient and I concur with the Shift Assessment completed by the Licensed Practical Nurse today this shift.
[2019-06-13 20:30] VITALS: BP 139/61
[2019-06-14 00:30] VITALS: BP 113/59
[2019-06-14 04:30] VITALS: BP 120/62
[2019-06-14 06:24] LABS: ANION GAP 12.7 mmol/L (8-16); CALCIUM 8.1 mg/dL (8.5-10.1); CARBON DIOXIDE 26.9 mmol/L (21.0-32.0); CREATININE - SERUM 5.8 mg/dL (0.6-1.3); POTASSIUM - SERUM 3.6 mmol/L (3.5-5.1)
[2019-06-14 06:52] LABS: BASOPHILS 0.2 % (0-2); EOSINOPHILS 4.2 % (0-7); IMMATURE GRANULOCYTES 0.2 % (0-5); LYMPHOCYTES 20.8 % (15-50); MCH 34.2 pg (26.0-34.0); MEAN PLATELET VOLUME 9.1 fL (7.4-10.4); MONOCYTES 12.3 % (2-11); NEUTROPHILS 62.3 % (40-80); PLATELET COUNT 175 10x3/uL (130-400); RDW 20.3 % (11.5-14.5)
[2019-06-14 06:53] LABS: HEMOGLOBIN 10.9 g/dL (12-16); MCV 103.4 fL (80.0-100.0); RBC 3.19 10x6/uL (4.00-5.40); WBC 5.8 10x3/uL (4.8-10.8)
[2019-06-14 08:21] VITALS: BP 140/69
[2019-06-14] MEDS ORDERED: MIDODRINE HCL5 MG PO (10:08)
[2019-06-14] MEDS ORDERED: BETAPACE 80 MG80 MG PO (10:09)
--- NOTE | 2019-06-14 10:49 | MORECARE ---
CASE MANAGEMENT DISCHARGE SUMMARY PATIENT: WESLEY SAMANIEGO UNIT: [id number] ADM DATE: 06/09/19 AGE: 73 : 46 SEX: F ROOM/BED: D.1417 AUTHOR: NIKKI,DOC PHYSICIAN: REFERRING PHYSICIAN: ZBIGNIEW REED MD DATE OF SERVICE: 06/14/19 Discharge Plan Patient Name: WESLEY SAMANIEGO Facility: [facility]:[place] : 1945 Planned Disposition: Home with Home Health Anticipated Discharge Date: Discharge Date: Expected LOS: Initial Reviewer: [id number] Initial Review Date: 06/10/2019 Generated: 06/14/19 11:48 am DCP- Discharge Planning Updated by [id number]: Leonor Butts on 06/11/19 11:[address] Late Entry 06/10/19 Patient Name: WESLEY SAMANIEGO Admission Status: Elective Accout number: [id number] Admission Date: 06-09-2019 : 1945 Admission Diagnosis: Attending: ZBIGNIEW REED Current LOS: 1 Anticipated DC Date: Planned Disposition: Home with Home Health Primary Insurance: [employer] MEDIC[employer] ADV Discharge Planning Comments: CM met with patient to complete initial dc planning assessment. CM educated patient on the CM role and verbal consent given by patient to complete assessment. Patient lives at home with her and son where she is independent with her care. At discharge patient plans to return home and feels this is a safe discharge. CM discussed availability of home health, rehab services, and medical equipment. Patient has dialysis MWF in [place]. She states her spouse takes her to dialysis. Patient has [facility] and plans to resume care GREGORIO signed. Patient stated she may need assistance with transportation home. CM asked patient if she has used the [employer] bus for transportation she stated "no". Patient denied known discharge needs at this time. CM will continue to follow and will assist as needed with dc plans/needs. Twister Hand: Leonor Butts DCPIA - Discharge Planning Initial Assessment Updated by [id number]: Leonor Butts on 06/11/19 12:09 pm * Is the patient Alert and Oriented? Yes * How many steps to enter\\exit or inside your home? * PCP Alicia Dias * Pharmacy [facility] * Preadmission Environment Home with Family * ADLs Independent * Equipment Bedside Commode * Other Equipment walker * List name and contact numbers for known caregivers / representatives who currently or will assist patient after discharge: Joseph Samaniego - son - [phone] * Verbal permission to speak to the caregivers and representatives has been obtained from the patient. Yes * Community resources currently utilized Home Health * Please name any agencies selected above. [facility] * Additional services required to return to the preadmission environment? No * Can the patient safely return to the preadmission environment? Yes * Has this patient been hospitalized within the prior 30 days at any hospital? No External Providers External Provider: [facility] Next Contact Date: Service Request Date: Service Type: Resolution: Reviewer: Comments: Coverage Notice Reviewer: [email or web address] Taras Butts Notice Issued Date-Time: 06/10/2019 12:18 Notice Type: Patient Choice Letter Notice Delivered To: Patient Relationship to Patient: Supervisor Pig Machine Name: Delivery Method: - Jessica Days: Prior Verbal Notification: Recipient Understood Notice: Recipient Signature: Med Rec Note Co-signed by Attending: Coverage Notice Comment: [facility] Last DP export: 06/11/19 11:23 a Patient Name: WESLEY SAMANIEGO Page [id number] at 1049 All edits/amendments must be made on the electronic document DICTATION DATE: 06/14/19 1048 CHIEF RESERVOIR ENGINEERING: SEBASTIAN 06/14/19 1048 RPT#: [id number] DC DATE: STATUS: ADM IN [facility] [address] [place] [address] END OF REPORT
--- NOTE | 2019-06-14 11:01 | MORECARE ---
CASE MANAGEMENT DISCHARGE SUMMARY PATIENT: WESLEY SAMANIEGO UNIT: [id number] ADM DATE: 06/09/19 AGE: 73 : 46 SEX: F ROOM/BED: D.1502 AUTHOR: JOCELYN JORDAN PHYSICIAN: REFERRING PHYSICIAN: ZBIGNIEW REED MD DATE OF SERVICE: 06/14/19 Discharge Plan Patient Name: WESLEY SAMANIGEO Facility: [facility]:[place] : 1945 Planned Disposition: Home with Home Health Anticipated Discharge Date: Discharge Date: Expected LOS: Initial Reviewer: [email or web address] Initial Review Date: 06/10/2019 Generated: 06/14/19 12:01 pm Comments DCP- Discharge Planning Updated by [email or web address]: Farideh Dee on 06/14/19 9:[address] Patient Name: WESLEY SAMANIEGO Encounter No: [id number] : 1945 Primary Insurance: [employer] MEDICARE ADV Anticipated DC Date: Planned Disposition: Home with Home Health External Planned Provider: : DCP follow-up note: Patient and family in agreement with discharge plan. No changes to plan. IMM SIGNED. FAXED DC SUM TO [facility] AND SHOULD BE A RESUMPTION OF CARE, TRINO WITH [facility] NOTIFIED. Case management will follow and assist as needed. Farideh Dee DCP- Discharge Planning Updated by [email or web address]: Leonor Butts on 06/11/19 11:[address] Late Entry 06/10/19 Patient Name: WESLEY SAMANIEGO Admission Status: Elective Accout number: [id number] Admission Date: 06-09-2019 : 1945 Admission Diagnosis: Attending: ZBIGNIEW REED Current LOS: 1 Anticipated DC Date: Planned Disposition: Home with Home Health Primary Insurance: [employer] MEDICARE ADV Discharge Planning Comments: CM met with patient to complete initial dc planning assessment. CM educated patient on the CM role and verbal consent given by patient to complete assessment. Patient lives at home with her and son where she is independent with her care. At discharge patient plans to return home and feels this is a safe discharge. CM discussed availability of home health, rehab services, and medical equipment. Patient has dialysis MWF in [place]. She states her spouse takes her to dialysis. Patient has [facility] and plans to resume care GREGORIO signed. Patient stated she may need assistance with transportation home. CM asked patient if she has used the [employer] bus for transportation she stated "no". Patient denied known discharge needs at this time. CM will continue to follow and will assist as needed with dc plans/needs. In Home Nanny: Leonor Benjamín DCPIA - Discharge Planning Initial Assessment Updated by [id number]: Leonor Butts on 06/11/19 12:09 pm * Is the patient Alert and Oriented? Yes * How many steps to enter\\exit or inside your home? * PCP Alicia Dias * Pharmacy [facility] * Preadmission Environment Home with Family * ADLs Independent * Equipment Bedside Commode * Other Equipment walker * List name and contact numbers for known caregivers / representatives who currently or will assist patient after discharge: Joseph Samaniego - son - [phone] * Verbal permission to speak to the caregivers and representatives has been obtained from the patient. Yes * Community resources currently utilized Home Health * Please name any agencies selected above. [facility] * Additional services required to return to the preadmission environment? No * Can the patient safely return to the preadmission environment? Yes * Has this patient been hospitalized within the prior 30 days at any hospital? No Coverage Notice Reviewer: [id number] - Leonor Benjamín Notice Issued Date-Time: 06/10/2019 12:18 Notice Type: Patient Choice Letter Notice Delivered To: Patient Relationship to Patient: Universal Worker Assisted Living Name: Delivery Method: - Jessica Days: Prior Verbal Notification: Recipient Understood Notice: Recipient Signature: Med Rec Note Co-signed by Attending: Coverage Notice Comment: [facility] Reviewer: [email or web address] Taras Dee Notice Issued Date-Time: 06/14/2019 10:53 Notice Type: IM Discharge Notice Notice Delivered To: Patient Relationship to Patient: Universal Worker Assisted Living Name: Delivery Method: HAND - Hand Delivered Jessica Days: Prior Verbal Notification: Recipient Understood Notice: Yes Recipient Signature: Yes Med Rec Note Co-signed by Attending: Coverage Notice Comment: Last DP export: 06/14/19 9:49 a Patient Name: WESLEY SAMANIEGO Page [id number] at 1101 All edits/amendments must be made on the electronic document DICTATION DATE: 06/14/191100 FILLER SHREDDING MACHINE LOADER: SEBASTIAN 06/14/19 110 RPT#: [id number] DC DATE: STATUS: ADM IN [facility] [address] [place] [address] END OF REPORT
--- NOTE | 2019-06-14 13:02 | NUR ---
IV DCD. DC PLANS GIVEN. UNDERSTANDING VOICED. ESCORTED TO CAR BY W/C.
--- NOTE | 2019-06-16 09:20 | MORECARE ---
CASE MANAGEMENT DISCHARGE SUMMARY PATIENT: WESLEY SAMANIEGO UNIT: [id number] ADM DATE: 06/09/19 AGE: 73 : 47 SEX: F ROOM/BED: D.6718 AUTHOR: JOCELYN JORDAN PHYSICIAN: REFERRING PHYSICIAN: ZBIGNIEW REED MD DATE OF SERVICE: 06/16/19 Discharge Plan Patient Name: WESLEY SAMANIEGO Facility: [facility]:[place] : 1945 Planned Disposition: Home with Home Health Anticipated Discharge Date: 06/14/19 Discharge Date: 06/14/2019 Expected LOS: 5 Initial Reviewer: [email or web address] Initial Review Date: 06/10/2019 Generated: 06/16/19 10:19 am Comments DCP- Discharge Planning Updated by [email or web address]: Farideh Dee on 06/14/19 9:[address] Patient Name: WESLEY SAMANIEGO Encounter No: [id number] : 1945 Primary Insurance: WE[employer] MEDICARE ADV Anticipated DC Date: Planned Disposition: Home with Home Health External Planned Provider: : DCP follow-up note: Patient and family in agreement with discharge plan. No changes to plan. IMM SIGNED. FAXED DC SUM TO [facility] AND SHOULD BE A RESUMPTION OF CARE, TRINO WITH [facility] NOTIFIED. Case management will follow and assist as needed. Farideh Dee DCP- Discharge Planning Updated by [email or web address]: Leonor Butts on 06/11/19 11:[address] Late Entry 06/10/19 Patient Name: WESLEY SAMANIEGO Admission Status: Elective Accout number: [id number] Admission Date: 06-09-2019 : 1945 Admission Diagnosis: Attending: ZBIGNIEW REED Current LOS: 1 Anticipated DC Date: Planned Disposition: Home with Home Health Primary Insurance: WE[employer] MEDICARE ADV Discharge Planning Comments: CM met with patient to complete initial dc planning assessment. CM educated patient on the CM role and verbal consent given by patient to complete assessment. Patient lives at home with her and son where she is independent with her care. At discharge patient plans to return home and feels this is a safe discharge. CM discussed availability of home health, rehab services, and medical equipment. Patient has dialysis MWF in [place]. She states her spouse takes her to dialysis. Patient has [facility] and plans to resume care GREGORIO signed. Patient stated she may need assistance with transportation home. CM asked patient if she has used the [employer] bus for transportation she stated "no". Patient denied known discharge needs at this time. CM will continue to follow and will assist as needed with dc plans/needs. Ammonia Box Operator: Leonor Butts DCPIA - Discharge Planning Initial Assessment Updated by [email or web address]: Leonor Butts on 06/11/19 12:09 pm * Is the patient Alert and Oriented? Yes * How many steps to enter\\exit or inside your home? * PCP Alicia Dias * Pharmacy [facility] * Preadmission Environment Home with Family * ADLs Independent * Equipment Bedside Commode * Other Equipment walker * List name and contact numbers for known caregivers / representatives who currently or will assist patient after discharge: Joseph Samaniego - son - [phone] * Verbal permission to speak to the caregivers and representatives has been obtained from the patient. Yes * Community resources currently utilized Home Health * Please name any agencies selected above. [facility] * Additional services required to return to the preadmission environment? No * Can the patient safely return to the preadmission environment? Yes * Has this patient been hospitalized within the prior 30 days at any hospital? No Coverage Notice Reviewer: [id number] - Leonor Buttsr Notice Issued Date-Time: 06/10/2019 12:18 Notice Type: Patient Choice Letter Notice Delivered To: Patient Relationship to Patient: Nurse Gynecology Name: Delivery Method: - Jessica Days: Prior Verbal Notification: Recipient Understood Notice: Recipient Signature: Med Rec Note Co-signed by Attending: Coverage Notice Comment: [facility] Reviewer: [id number] - Farideh Dee Notice Issued Date-Time: 06/14/2019 10:53 Notice Type: IM Discharge Notice Notice Delivered To: Patient Relationship to Patient: Nurse Gynecology Name: Delivery Method: HAND - Hand Delivered Jessica Days: Prior Verbal Notification: Recipient Understood Notice: Yes Recipient Signature: Yes Med Rec Note Co-signed by Attending: Coverage Notice Comment: Last DP export: 06/14/19 10:01 a Patient Name: WESLEY SAMANIEGO Page [phone] at 0920 All edits/amendments must be made on the electronic document DICTATION DATE: 06/16/19918 GROUND NUCLEAR WEAPONS ASSEMBLY OFFICER: SEBASTIAN 06/16/19918 RPT#: [id number] DC DATE:06/14/19 STATUS: DIS IN [facility] [address] [place] [address] END OF REPORT
--- NOTE | 2019-06-16 16:25 | OP ---
PATIENT NAME: WESLEY SMITH MEDICAL RECORD: [id number] :47 LOCATION:D. D.2121 ADMISSION DATE:06/09/19 SURGEON: GERONIMO JAMES MD DATE OF OPERATION: 06/13/2019 REFERRED BY: Gary Ruiz and Oni Reed MD PREOPERATIVE DIAGNOSES: 1. Thrombosed left arm AV graft. 2. End-stage renal disease, dependence on hemodialysis. 3. Diabetes, hypertension, obesity, and coronary artery disease. POSTOPERATIVE DIAGNOSES: 1. Thrombosed left arm AV graft. 2. End-stage renal disease, dependence on hemodialysis. 3. Diabetes, hypertension, obesity, and coronary artery disease. PREOPERATIVE NOTE: A 73-year-old -[place] female from [place], [place]. She has end-stage renal disease and has hemodialysis there in [place] Sunday, Sunday, and Sunday. She has been dialyzing for quite a while with a left arm distal brachial artery to proximal basilic vein AV graft. I believe this is probably a PTFE graft, though I do not know for certain. When she presented for dialysis last week on Sunday, it was thrombosed. She was scheduled to come in Sunday to [facility] for [facility], but when she did arrive Sunday, she was critically ill with hyperkalemia. She was admitted to the hospital and here she had a temporary Trialysis catheter placed and emergency dialysis would save her life. Since then, she has undergone cardiac catheterization with angioplasty and she has had also transfusion at dialysis earlier today. She is in much better condition. She was to have had a fistulogram with AngioJet mechanical thrombolysis today as well as removal of a Trialysis and insertion of a tunneled HemoSplit dialysis catheter. We ran out of time in the OR and I planned only to place a tunneled catheter and remove the Trialysis hopefully perhaps this coming Sunday, she can go back to [facility] for declot. If she is unable to leave the hospital before then perhaps IR could do it on Sunday. I myself is working at [facility] on Sunday, but could do her procedure here in the hospital 1 day next week sometime after Sunday if necessary. ANESTHESIA: General with LMA per ENGINEERING DRAFTER and Dr. Rodriguez. DESCRIPTION OF PROCEDURE: Under general anesthesia in supine position, the patient was prepped and draped in a sterile manner. Her Trialysis catheter in the right internal jugular vein was used as an IV for as long as possible and later at the conclusion of the operation, her HemoSplit catheter was available for IV access to anesthesia. An ellipse of skin at the base of the neck on the right was excised to remove the insertion site of the Mahurkar. The Mahurkar fortunately was placed low enough in the internal jugular vein that the site was satisfactory for HemoSplit insertion. A guidewire was placed through the Trialysis catheter and it was removed. Under fluoroscopy, I inserted a peelaway dilator and introducer over the guidewire into the right atrium. I chose a 19-cm HemoSplit and made an incision beneath the clavicle and pulled the new catheter through a subcutaneous tunnel up to that cervical incision and it was then inserted through the peel-away sheath. It was positioned with its tips deep in the right atrium or atriocaval junction. All this was done under fluoroscopy without complications. OPERATIVE REPORT [id number] WESLEY SMITH The catheter placement was satisfactory. Both lumens were accessed and aspirated, free return of blood confirmed. They were then flushed with saline and then hep locked with heparin lock 100 units per cc. The catheter was sutured to the skin near the entry site with 2-0 Prolene. The cervical wound was closed with interrupted inverted 3-0 Vicryl, and to achieve hemostasis, I used a running 4-0 Prolene skin stitch. Sterile dressings were applied and the patient awakened in stable condition returned to the recovery room. PLAN: The patient will likely go home over the weekend and will be returning for declot of her AV graft. It is important that in approximately 7 days, the sutures at the cervical incision be removed and this should be done at her dialysis unit. TRANSINT:[id number] Voice Confirmation ID: [id number] DOCUMENT ID: [id number] cc: [place] [facility] GERONIMO JAMES MD at 162 CC: ONI REED and GARY RUIZ MD [id number] DICTATION DATE: 06/13/19 172 RESULTS TECHNICIAN: 06/13/19 3931 DIS IN 06/14/19 [address] [place] [address]
== END 2019-06-14 13:03 | disposition home health service (06) | DRG 280 ==
LOC: D.ER 08:44 → D.M2 09:16 → D.ICU 09:16 → D.M2 06-12 16:37
PROVIDERS: Family Medicine; Internal Medicine; Internal Medicine Cardiovascular Disease; Surgery; ADMIT Internal Medicine Nephrology; ATTEND Internal Medicine Nephrology
PROC: 05HM33Z Insertion of Infusion Device into Right Internal Jugular Vein, Percutaneous Approach (ICD-10-PCS; principal; 2019-06-09)
PROC: 5A1D70Z Performance of Urinary Filtration, Intermittent, Less than 6 Hours Per Day (ICD-10-PCS; 2019-06-09)
PROC: B2151ZZ Fluoroscopy of Left Heart using Low Osmolar Contrast (ICD-10-PCS; 2019-06-12)
PROC: 4A023N7 Measurement of Cardiac Sampling and Pressure, Left Heart, Percutaneous Approach (ICD-10-PCS; 2019-06-12)
PROC: B2111ZZ Fluoroscopy of Multiple Coronary Arteries using Low Osmolar Contrast (ICD-10-PCS; 2019-06-12 08:00)
PROC: 0JH63XZ Insertion of Tunneled Vascular Access Device into Chest Subcutaneous Tissue and Fascia, Percutaneous Approach (ICD-10-PCS; 2019-06-13)
PROC: 02HV33Z Insertion of Infusion Device into Superior Vena Cava, Percutaneous Approach (ICD-10-PCS; 2019-06-13)
PROC: B5181ZA Fluoroscopy of Superior Vena Cava using Low Osmolar Contrast, Guidance (ICD-10-PCS; 2019-06-13)
DX: T82.868A Thrombosis due to vascular prosthetic devices, implants and grafts, initial encounter (principal); N18.6 End stage renal disease; I21.4 Non-ST elevation (NSTEMI) myocardial infarction; I12.0 Hypertensive chronic kidney disease with stage 5 chronic kidney disease or end stage renal disease; E87.5 Hyperkalemia; I25.10 Atherosclerotic heart disease of native coronary artery without angina pectoris; E11.22 Type 2 diabetes mellitus with diabetic chronic kidney disease; Z99.2 Dependence on renal dialysis; D63.1 Anemia in chronic kidney disease

== ENCOUNTER 2019-12-10 19:07 | Inpatient (IN) | payer MEDICARE, MEDICAID ==
[~2019-12-10] VITALS: Ht 162.6 cm; Wt 98.0 kg
[~2019-12-10 19:07] MED LIST changes: +BETAPACE 80 MG80 MG PO; +MIDODRINE HCL5 MG PO
[2019-12-10 20:12] VITALS: BP 105/57
--- NOTE | 2019-12-10 20:15 | NUR ---
PT GOES TO DIALYSIS M,W,F EACH WK
--- NOTE | 2019-12-10 21:36 | NUR ---
REPORT GIVEN TO ELLI MELISSA
[2019-12-11] VITALS (7 sets, daily range): BP systolic 98–139; BP diastolic 52–69; Ht 162.6 cm; Wt 98.0 kg
[2019-12-11] MEDS ORDERED: ELIQUIS5 MG PO (00:38)
[2019-12-11 05:12] LABS: BASOPHILS 0.1 % (0-2); EOSINOPHILS 16.3 % (0-7); HEMATOCRIT 24.7 % (36.0-48.0); HEMOGLOBIN 7.9 g/dL (12-16); IMMATURE GRANULOCYTES 0.3 % (0-5); LYMPHOCYTES 15.3 % (15-50); MCH 36.6 pg (26.0-34.0); MCV 114.4 fL (80.0-100.0); MEAN PLATELET VOLUME 8.2 fL (7.4-10.4); MONOCYTES 10.5 % (2-11); NEUTROPHILS 57.5 % (40-80); PLATELET COUNT 206 10x3/uL (130-400); RBC 2.16 10x6/uL (4.00-5.40); RDW 14.9 % (11.5-14.5); WBC 7.1 10x3/uL (4.8-10.8)
[2019-12-11 05:51] LABS: ALBUMIN 3.1 g/dL (3.4-5.0); ALKALINE PHOSPHATASE 154 U/L (30-120); ALT (SGPT) 5 U/L (10-68); BILIRUBIN - TOTAL 0.27 mg/dL (0.2-1.3); CALC OSMOLALITY 295 mosm/kg (275-300); CALCIUM 8.1 mg/dL (8.5-10.1); CARBON DIOXIDE 24.5 mmol/L (21.0-32.0); CHLORIDE - SERUM 99 mmol/L (98-107); GLUCOSE 95 mg/dL (74-106); MAGNESIUM - SERUM 2.4 mg/dL (1.8-2.4); PHOSPHOROUS 4.8 mg/dL (2.5-4.9); POTASSIUM - SERUM 5.7 mmol/L (3.5-5.1); PRO BNP 3328 pg/mL (0-125); PROTEIN - SERUM 7.2 g/dL (6.4-8.2); SODIUM 137 mmol/L (136-145); THYROID STIMULATING HORMONE 8.01 uIU/mL (0.36-3.74); TROPONIN-I < 0.017 ng/mL (0.000-0.060); UREA NITROGEN 75 mg/dL (7-18); eGFR NON AFRICAN AMERICAN 2 mL/min (90-120)
--- NOTE | 2019-12-11 07:30 | NUR ---
PT IN BED, CALL LIGHT WITHIN REACH. PERSONAL ITEMS WITHIN REACH.
--- NOTE | 2019-12-11 17:25 | MORECARE ---
CASE MANAGEMENT DISCHARGE SUMMARY PATIENT: MIKE SAMANIEGO UNIT: [id number] ADM DATE: 12/10/19 AGE: 74 : 46 SEX: F ROOM/BED: D.2109 AUTHOR: JOCELYN JORDAN PHYSICIAN: REFERRING PHYSICIAN: ANITA MIRANDA MD DATE OF SERVICE: 12/11/19 Discharge Plan Patient Name: MIKE SAMANIEGO [facility] [facility] 1945 Planned Disposition: Anticipated Discharge Date: Discharge Date: Expected LOS: Initial Reviewer: [email or web address] Initial Review Date: 12/10/2019 Generated: 12/11/19 6:25 pm External Providers External Provider: [employer] Next Contact Date: Service Request Date: Service Type: Resolution: Reviewer: Comments: Coverage Notice Reviewer: [id number] Taras Bean Notice Issued Date-Time: 12/11/2019 8:58 Notice Type: Medicare Outpatient Observation Notice Notice Delivered To: Patient Relationship to Patient: Self Flame Channeler Name: Mike Samaniego Delivery Method: HAND - Hand Delivered Jessica Days: Prior Verbal Notification: Recipient Understood Notice: Yes Recipient Signature: Yes Med Rec Note Co-signed by Attending: Coverage Notice Comment: PATEL signed/delivered to patient. Original to chart. Patient Name: MIKE SAMANIEGO Page [phone] at 1725 All edits/amendments must be made on the electronic document DICTATION DATE: 12/11/191724 ROLLER EMBOSSER: SEBASTIAN 12/11/191724 RPT#: [id number] DC DATE: STATUS: ADM IN [facility] [address] [place] [address] END OF REPORT
--- NOTE | 2019-12-11 19:23 | NUR ---
REPORT RECEIVED, WILL CONTINUE POC. PATIENT IS AAOX4, SITTING UP IN BED. NO S/S OF DISTRESS OBSERVED, RR EVEN AND UNLABORED ON ROOM AIR. PATIENT REQUESTING A BATH AT SOME POINT THIS EVENING. PIV TO LT FA, PATENT, SL. PATIENT DENIES FURTHER NEEDS AT THIS TIME. CL IN REACH, BED LOCKED AND LOWERED. WILL CTM.
[2019-12-12] VITALS (7 sets, daily range): BP systolic 120–158; BP diastolic 42–96
--- NOTE | 2019-12-12 01:13 | NUR ---
ADMINISTERED COMPLETE BED BATH AND LINEN CHANGE. ORAL CARE PROVIDED. PATIENT REPOSITIONED. PATIENT DENIES FURTHER NEEDS AT THIS TIME. CL IN REACH, BED LOCKED AND LOWERED. WILL CTM.
[2019-12-12 05:49] LABS: ANION GAP 21.8 mmol/L (8-16); CALCIUM 8.6 mg/dL (8.5-10.1); CARBON DIOXIDE 24.6 mmol/L (21.0-32.0); CREATININE - SERUM 16.6 mg/dL (0.6-1.3)
[2019-12-12 06:03] LABS: HEMATOCRIT 24.4 % (36.0-48.0); HEMOGLOBIN 7.7 g/dL (12-16); MCH 36.3 pg (26.0-34.0); MCHC 31.6 g/dL (31.0-37.0); MCV 115.1 fL (80.0-100.0); MEAN PLATELET VOLUME 8.2 fL (7.4-10.4); PLATELET COUNT 216 10x3/uL (130-400); RBC 2.12 10x6/uL (4.00-5.40); RDW 15.4 % (11.5-14.5); WBC 7.2 10x3/uL (4.8-10.8)
[2019-12-12 06:06] LABS: POTASSIUM - SERUM 6.4 mmol/L (3.5-5.1)
--- NOTE | 2019-12-12 08:09 | EC ---
PATIENT:WESLEY SMITH DATE OF SERVICE: 12/10/19 SEX: F MEDICAL RECORD: [id number] DATE OF : [birth year] LOCATION:D.M2 D.210 AGE OF PATIENT: 74 ADMISSION DATE: 12/10/19 REFERRING PHYSICIAN: INTERPRETING PHYSICIAN: MARGARITA BLAKE MD ECHOCARDIOGRAM REPORT ECHO CHARGES 4 ECHO COMPLETE Date: 12/11/19 CLINICAL DIAGNOSIS: SYNCOPE ECHOCARDIOGRAPHIC MEASUREMENTS (adult normal given) AC root (d.<3.7cm) 3.3 cm LV Septum d (<1.2 cm> 1.1 cm Valve Excursion 1.4 cm LV Septum (systole) 1.9 cm Left Atria (s.<4.0cm> 3.9 cm LVPW d(<1.2cm) 0.9 cm RV (d.<2.3cm) 3.1 cm LVPW (sytole) 1.4 cm LV diastole(<5.6CM) 5.4 cm MV E-F(>70mm/sec) cm LV systole 3.1 cm LVOT Diameter 1.9 cm MV exc.(>10mm) cm Est.ejection fraction (50-75%) % DOPPLER: LVIT cm/sec A 92 cm/sec E 94 cm/sec LA cm/sec RVSP 51.7 mmHg LVOT 121 cm/sec AOP1/2T m/s Asc. Ao 227 cm/sec RVOT 86 cm/sec RA cm/sec PA 93 cm/sec AV Gradient Peak 20.6 mmHg AV Mean 13.1 mmHg AV Area 1.8 cm MV Gradient Peak 6.0 mmHg MV Mean 3.0 mmHg MV Area cm COMMENTS: Diesel Tractor Engine Mechanic: Yordan [facility] Computer Tester: 3 Dr. Kaplan TAPE# PACS Pericardial Effusion N DATE OF SERVICE: Adequate 2D, color flow imaging, spectral Doppler, and M-mode. No LVH. LV internal dimensions are normal. Wall motion is normal. EF is greater than or equal to 55%. Aortic valve is tricuspid. No evidence of stenosis by Doppler interrogation. Left atrium is normal at 3.9 cm. Mitral valve shows no prolapse. Trace MR. Right-sided chambers are grossly normal. Trace TR. ECHOCARDIOGRAM REPORT [id number] WESLEY SMITH NTS:[id number] Voice Confirmation ID: [id number] DOCUMENT ID: [id number] MARGARITA BLAKE MD at 0809 CC: [id number] DICTATION DATE: 12/11/19 1615 COMMUNITY DEVELOPMENT PLANNER: 12/11/191926 ADM IN [place] [id number] [place] [id number]
--- NOTE | 2019-12-12 11:16 | NUR ---
NOTIFIED BLOOD BANK THAT PT IS IN DIALYSIS.
[2019-12-12 12:16] LABS: ANISOCYTOSIS OCC; EOSINOPHILS 23 % (0-7); LYMPHOCYTES 17 % (15-50); MONOCYTES 3 % (2-11); NEUTROPHILS 56 % (40-80); ROULEAUX OCC
--- NOTE | 2019-12-12 19:13 | NUR ---
RECIEVED UP IN BED WITH EYES OPENA ND TV ON. ALERT AND ORIENTED X4. REMAINS CHAIR BOUND. IV TO LT FA SL AND LT CHEST HEMOSPLIT. RT ARM RESERVED D/T AVF. PRESSSURE TAPE ON AREA. SUPPOSE TO HAVE DIALYSIS TOMORROW . DENIES ANY PAIN AT THIS TIME.
[2019-12-13] VITALS: BP 136/55
[2019-12-13 04:00] VITALS: BP 108/53
[2019-12-13 09:02] VITALS: BP 165/57
[2019-12-13 14:02] LABS: BASOPHILS 0.1 % (0-2); EOSINOPHILS 0.8 % (0-7); HEMATOCRIT 23.3 % (36.0-48.0); HEMOGLOBIN 7.6 g/dL (12-16); IMMATURE GRANULOCYTES 0.5 % (0-5); LYMPHOCYTES 9.3 % (15-50); MCH 35.8 pg (26.0-34.0); MCHC 32.6 g/dL (31.0-37.0); MEAN PLATELET VOLUME 7.7 fL (7.4-10.4); MONOCYTES 2.5 % (2-11); NEUTROPHILS 86.8 % (40-80); PLATELET COUNT 210 10x3/uL (130-400); RBC 2.12 10x6/uL (4.00-5.40); RDW 15.2 % (11.5-14.5)
[2019-12-13 14:05] LABS: MCV 109.9 fL (80.0-100.0); WBC 9.9 10x3/uL (4.8-10.8)
[2019-12-13 14:10] LABS: ANION GAP 18.4 mmol/L (8-16); CALCIUM 8.5 mg/dL (8.5-10.1); CARBON DIOXIDE 24.6 mmol/L (21.0-32.0); CREATININE - SERUM 12.8 mg/dL (0.6-1.3)
[2019-12-13 14:53] VITALS: BP 147/55
--- NOTE | 2019-12-13 19:21 | NUR ---
RECIEVED UP ION BED WITH EYES OPEN AND TV ON. RECIEVING DIALYSIS AT BEDSIDE. ALERT AND ORIETNED X4. REMAINS CHAIR FAST. IV TO LT FA SL. LT CHEST HEMOSPLIT. TELEMETRY IN PLACE. DENIES ANY NEEDS AT THIS TIME.
[2019-12-13 20:00] VITALS: BP 111/53
[2019-12-14 04:00] VITALS: BP 136/58
[2019-12-14 08:00] VITALS: BP 147/96
[2019-12-14 10:08] LABS: BASOPHILS 0.2 % (0-2); EOSINOPHILS 5.2 % (0-7); IMMATURE GRANULOCYTES 0.7 % (0-5); LYMPHOCYTES 26.1 % (15-50); MCH 35.1 pg (26.0-34.0); MCHC 33.1 g/dL (31.0-37.0); MEAN PLATELET VOLUME 8.1 fL (7.4-10.4); MONOCYTES 10.8 % (2-11); PLATELET COUNT 238 10x3/uL (130-400); RDW 17.7 % (11.5-14.5); WBC 9.2 10x3/uL (4.8-10.8)
[2019-12-14 10:13] LABS: HEMATOCRIT 28.4 % (36.0-48.0); HEMOGLOBIN 9.4 g/dL (12-16); RBC 2.68 10x6/uL (4.00-5.40)
[2019-12-14 10:24] LABS: ANION GAP 14.2 mmol/L (8-16); CALCIUM 8.7 mg/dL (8.5-10.1); CREATININE - SERUM 9.6 mg/dL (0.6-1.3)
[2019-12-14 10:28] LABS: POTASSIUM - SERUM 4.2 mmol/L (3.5-5.1)
[2019-12-14 12:00] VITALS: BP 163/77
[2019-12-14 16:00] VITALS: BP 156/72
--- NOTE | 2019-12-14 19:14 | NUR ---
RECIEVED UP IN BED WITH EYES OPEN AND TV ON. ALERT AND ORIENTED X4. STATED ' I HAVE'NT BEEN ITCHING SINCE WE PUT THAT LOTION ON LAST NIGHT". LT ARM RESERVED D/T AVF. IV TO LT FA SL. HEMOSPLIT TO LT CHEST. TELEMETRY IN PLACE. DENIES ANY NEEDS AT THIS TIME.
[2019-12-14 20:00] VITALS: BP 154/74
[2019-12-15] VITALS: BP 122/53
[2019-12-15 04:00] VITALS: BP 144/59
[2019-12-15 06:30] LABS: HEMATOCRIT 28.5 % (36.0-48.0); HEMOGLOBIN 9.1 g/dL (12-16); MCH 33.2 pg (26.0-34.0); MCHC 31.9 g/dL (31.0-37.0); MEAN PLATELET VOLUME 9.6 fL (7.4-10.4); RBC 2.74 10x6/uL (4.00-5.40); RDW 17.1 % (11.5-14.5); WBC 11.2 10x3/uL (4.8-10.8)
[2019-12-15 07:06] LABS: PLATELET COUNT 187 10x3/uL (130-400)
--- NOTE | 2019-12-15 07:20 | NUR ---
PT AWAKE, BREAKFAST DELIVERED. PT DENIES ANY PAIN AT THIS TIME. PT SCHEDULED FOR DIALYSIS TODAY.
[2019-12-15 08:51] VITALS: BP 137/77
[2019-12-15 09:09] LABS: ANION GAP 16.4 mmol/L (8-16); CALCIUM 7.7 mg/dL (8.5-10.1); CARBON DIOXIDE 27.4 mmol/L (21.0-32.0); CREATININE - SERUM 11.6 mg/dL (0.6-1.3); POTASSIUM - SERUM 4.8 mmol/L (3.5-5.1)
[2019-12-15] MEDS ORDERED: MIDODRINE HCL5 MG PO (09:29)
[2019-12-15] MEDS ORDERED: NEPHRO-VITE RX1 TAB PO (09:30)
[2019-12-15] MEDS ORDERED: ATARAX 25 MG TA25 MG PO (09:30)
[2019-12-15] MEDS ORDERED: SYNTHROID25 MCG PO (09:30)
[2019-12-15] MEDS ORDERED: STERAPRED 5MG 125 MG PO (09:44)
[2019-12-15] MEDS ORDERED: AQUAPHOR HEALIN50 GM TOPICAL (09:44)
[2019-12-15] MEDS ORDERED: ARISTOCORT 0.5%15 GM TOPICAL (09:44)
--- NOTE | 2019-12-15 10:00 | NUR ---
PT RECEIVING DIALYSIS IN ROOM BEFORE SHE IS DISCHARGED.
--- NOTE | 2019-12-15 10:30 | MORECARE ---
CASE MANAGEMENT DISCHARGE SUMMARY PATIENT: MIKE SAMANIEGO UNIT: [id number] ADM DATE: 12/12/19 AGE: 74 : 46 SEX: F ROOM/BED: D.2103 AUTHOR: JOCELYN JORDAN PHYSICIAN: REFERRING PHYSICIAN: ANITA MIRANDA MD DATE OF SERVICE: 12/15/19 Discharge Plan Patient Name: MIKE SAMANIEGO [facility]:[place] : 1945 Planned Disposition: Home Anticipated Discharge Date: Discharge Date: Expected LOS: Initial Reviewer: [email or web address] Initial Review Date: 12/10/2019 Generated: 12/15/19 11:30 am DCPIA - Discharge Planning Initial Assessment Updated by [email or web address]: Cheri Thompson on 12/15/19 10:28 am * Is the patient Alert and Oriented? Yes * PCP Mounika Pratt in [place] * Pharmacy [facility] in [place] * Preadmission Environment Home with Family * ADLs Partial Dependent * Partial ADLs (Assistance needed) Ambulation * Equipment Bedside Commode Walker * List name and contact numbers for known caregivers / representatives who currently or will assist patient after discharge: Joseph Samaniego - son - [phone] * Verbal permission to speak to the caregivers and representatives has been obtained from the patient. Yes * Community resources currently utilized Private Duty Care * Please name any agencies selected above. [facility] * Additional services required to return to the preadmission environment? No * Can the patient safely return to the preadmission environment? Yes * Has this patient been hospitalized within the prior 30 days at any hospital? No Coverage Notice Reviewer: [id number] - Abigail Bean Notice Issued Date-Time: 12/11/2019 8:58 Notice Type: Medicare Outpatient Observation Notice Notice Delivered To: Patient Relationship to Patient: Self Switchboard Installer Name: Mike Samaniego Delivery Method: HAND - Hand Delivered Jessica Days: Prior Verbal Notification: Recipient Understood Notice: Yes Recipient Signature: Yes Med Rec Note Co-signed by Attending: Coverage Notice Comment: JORGE signed/delivered to patient. Original to chart. Last DP export: 12/11/19 4:25 p Patient Name: MIKE SAMANIEGO Page [id number] at 1030 All edits/amendments must be made on the electronic document DICTATION DATE: 12/15/19 1030 PSYCHOLOGY TECHNICIAN: SEBASTIAN 12/15/19 1030 RPT#: [id number] DC DATE: STATUS: ADM IN [facility] [address] [place] [address] END OF REPORT
--- NOTE | 2019-12-15 10:37 | MORECARE ---
CASE MANAGEMENT DISCHARGE SUMMARY PATIENT: MIKE SAMANIEGO UNIT: [id number] ADM DATE: 12/12/19 AGE: 74 : 46 SEX: F ROOM/BED: D.2103 AUTHOR: JOCELYN JORDAN PHYSICIAN: REFERRING PHYSICIAN: ANITA MIRANDA MD DATE OF SERVICE: 12/15/19 Discharge Plan Patient Name: MIKE SAMANIEGO Facility: [facility]:[place] : 1945 Planned Disposition: Home Anticipated Discharge Date: Discharge Date: Expected LOS: Initial Reviewer: [email or web address] Initial Review Date: 12/10/2019 Generated: 12/15/19 11:37 am Comments DCP- Discharge Planning Updated by [email or web address]: Cheri Thompson on 12/15/19 9:[address] Patient Name: MIKE SAMANIEGO Admission Status: ER Accout number: [id number] Admission Date: 12-12-2019 : 1945 Admission Diagnosis: Attending: ANITA MIRANDA Current LOS: 3 Anticipated DC Date: Planned Disposition: Home Primary Insurance: WELL[employer] MEDICARE ADV Discharge Planning Comments: CM received discharge orders. I called patient (per Isolation policy) and discussed discharge planning. She lives with her spouse and son. States her spouse takes her to [place] dialysis [facility] at 1000. States she will need [facility] transportation home today. She has an aide 7 days a week for 2 hours a day from [facility] at home to assist with bathing, dressing and house hold chores. She states she will notify them of her discharge. She states plan is to return home with [facility] aide and feels this is a safe discharge. I discussed home health, rehab and additional DME needs. Denies further needs at this time. [facility] called and spoke with Zuly, they will pick her up at 3PM from ED entrance with a wheelchair and transport home. Confirmation # for [facility] #[id number]. I notified Elsie Whiteside, dialysis coordinator, that patient is being discharged today. Professional Sports Scout: Cheri Thompson DCPIA - Discharge Planning Initial Assessment Updated by [email or web address]: Cheri Thompson on 12/15/19 10:28 am * Is the patient Alert and Oriented? Yes * PCP Mounika Pratt in [place] * Pharmacy [facility] in [place] * Preadmission Environment Home with Family * ADLs Partial Dependent * Partial ADLs (Assistance needed) Ambulation * Equipment Bedside Commode Walker * List name and contact numbers for known caregivers / representatives who currently or will assist patient after discharge: Joseph Samaniego - son - [phone] * Verbal permission to speak to the caregivers and representatives has been obtained from the patient. Yes * Community resources currently utilized Private Duty Care * Please name any agencies selected above. [facility] appraiser * Additional services required to return to the preadmission environment? No * Can the patient safely return to the preadmission environment? Yes * Has this patient been hospitalized within the prior 30 days at any hospital? No Coverage Notice Reviewer: [id number] Taras Bean Notice Issued Date-Time: 12/11/2019 8:58 Notice Type: Medicare Outpatient Observation Notice Notice Delivered To: Patient Relationship to Patient: Self Sample Display Preparer Name: Mike Samaniego Delivery Method: HAND - Hand Delivered Jessica Days: Prior Verbal Notification: Recipient Understood Notice: Yes Recipient Signature: Yes Med Rec Note Co-signed by Attending: Coverage Notice Comment: PATEL signed/delivered to patient. Original to chart. Reviewer: [id number] - Cheri Thompson Notice Issued Date-Time: 12/15/2019 10:34 Notice Type: IM Discharge Notice Notice Delivered To: Patient Relationship to Patient: Self Sample Display Preparer Name: Delivery Method: HAND - Hand Delivered Jessica Days: Prior Verbal Notification: Recipient Understood Notice: Yes Recipient Signature: Med Rec Note Co-signed by Attending: Coverage Notice Comment: Last DP export: 12/15/19 9:30 a Patient Name: MIKE SAMANIEGO Page [id number] at 1037 All edits/amendments must be made on the electronic document DICTATION DATE: 12/15/19 1037 BUYERS' AGENT: SEBASTIAN 12/15/19 1037 RPT#: [id number] DC DATE: STATUS: ADM IN [facility] [address] [place] [address] END OF REPORT
[2019-12-15 11:43] LABS: ANISOCYTOSIS OCC; EOSINOPHILS 3 % (0-7); LYMPHOCYTES 26 % (15-50); MONOCYTES 14 % (2-11); NEUTROPHILS 55 % (40-80); PLATELET ESTIMATE NORMAL; PLATELET MORPHOLOGY PLT CLUMPS PRESENT
[2019-12-15 13:23] VITALS: BP 141/88
--- NOTE | 2019-12-15 14:29 | NUR ---
PT TRANSPORTED VIA WHEELCHAIR TO ER TO MEET [facility] [employer] FOR [facility] HOME ALL PERSONAL ITEMS WITH PATIENT. IV REMOVED.
--- NOTE | 2019-12-16 08:20 | MORECARE ---
CASE MANAGEMENT DISCHARGE SUMMARY PATIENT: MIKE SAMANIEGO UNIT: [id number] ADM DATE: 12/12/19 AGE: 74 : 46 SEX: F ROOM/BED: D.2103 AUTHOR: JOCELYN JORDAN PHYSICIAN: REFERRING PHYSICIAN: ANITA MIRANDA MD DATE OF SERVICE: 12/16/19 Discharge Plan Patient Name: MIKE SAMANIEGO Facility: [facility]:[place] : 1945 Planned Disposition: Home Anticipated Discharge Date: Discharge Date: 12/15/2019 Expected LOS: Initial Reviewer: [email or web address] Initial Review Date: 12/10/2019 Generated: 12/16/19 9:19 am Comments DCP- Discharge Planning Updated by [email or web address]: Cheri Thompson on 12/15/19 9:[address] Patient Name: MIKE SAMANIEGO Admission Status: ER Accout number: [id number] Admission Date: 12-12-2019 : 1945 Admission Diagnosis: Attending: ANITA MIRANDA Current LOS: 3 Anticipated DC Date: Planned Disposition: Home Primary Insurance: WELLCARE MEDICARE ADV Discharge Planning Comments: CM received discharge orders. I called patient (per Isolation policy) and discussed discharge planning. She lives with her spouse and son. States her spouse takes her to [place] dialysis [facility] at [address]. States she will need [facility] transportation home today. She has an aide 7 days a week for 2 hours a day from [place] [facility] at home to assist with bathing, dressing and house hold chores. She states she will notify them of her discharge. She states plan is to return home with [facility] aide and feels this is a safe discharge. I discussed home health, rehab and additional DME needs. Denies further needs at this time. [facility] called and spoke with Zuly, they will pick her up at 3PM from ED entrance with a wheelchair and transport home. Confirmation # for [facility] #[id number]. I notified Elsie Whiteside, dialysis coordinator, that patient is being discharged today. Analysis Consultant: Cheri Thompson DCPIA - Discharge Planning Initial Assessment Updated by [email or web address]: Cheri Thompson on 12/15/19 10:28 am * Is the patient Alert and Oriented? Yes * PCP Mounika Pratt in [place] * Pharmacy [facility] in [place] * Preadmission Environment Home with Family * ADLs Partial Dependent * Partial ADLs (Assistance needed) Ambulation * Equipment Bedside Commode Walker * List name and contact numbers for known caregivers / representatives who currently or will assist patient after discharge: Joseph Samaniego - coral - [phone] * Verbal permission to speak to the caregivers and representatives has been obtained from the patient. Yes * Community resources currently utilized Private Duty Care * Please name any agencies selected above. [facility] and family living professor * Additional services required to return to the preadmission environment? No * Can the patient safely return to the preadmission environment? Yes * Has this patient been hospitalized within the prior 30 days at any hospital? No Coverage Notice Reviewer: [id number] Taras Bean Notice Issued Date-Time: 12/11/2019 8:58 Notice Type: Medicare Outpatient Observation Notice Notice Delivered To: Patient Relationship to Patient: Self Hospital Unit Coordinator Name: Mike Samaniego Delivery Method: HAND - Hand Delivered Jessica Days: Prior Verbal Notification: Recipient Understood Notice: Yes Recipient Signature: Yes Med Rec Note Co-signed by Attending: Coverage Notice Comment: PATEL signed/delivered to patient. Original to chart. Reviewer: [email or web address] - Cheri Thompson Notice Issued Date-Time: 12/15/2019 10:34 Notice Type: IM Discharge Notice Notice Delivered To: Patient Relationship to Patient: Self Hospital Unit Coordinator Name: Delivery Method: HAND - Hand Delivered Jessica Days: Prior Verbal Notification: Recipient Understood Notice: Yes Recipient Signature: Med Rec Note Co-signed by Attending: Coverage Notice Comment: Last DP export: 12/15/19 9:38 a Patient Name: MIKE SAMANIEGO Page [id number] at 0820 All edits/amendments must be made on the electronic document DICTATION DATE: 12/16/19818 CHARACTER ACTOR: SEBASTIAN 12/16/19818 RPT#: [id number] DC DATE:12/15/19 STATUS: DIS IN [facility] [address] [place] [address] END OF REPORT
== END 2019-12-15 14:29 | disposition home or self-care (01) | DRG 314 ==
LOC: D.ER 19:07 → D.M2 22:44 → OBSVTIME 22:44 → D.M2 22:44
PROVIDERS: Family Medicine; Internal Medicine; ADMIT Family Medicine; ATTEND Family Medicine
PROC: 5A1D70Z Performance of Urinary Filtration, Intermittent, Less than 6 Hours Per Day (ICD-10-PCS; principal; 2019-12-11)
DX: T82.898A Other specified complication of vascular prosthetic devices, implants and grafts, initial encounter (principal); N18.6 End stage renal disease; I12.0 Hypertensive chronic kidney disease with stage 5 chronic kidney disease or end stage renal disease; E87.5 Hyperkalemia; I95.3 Hypotension of hemodialysis; E11.22 Type 2 diabetes mellitus with diabetic chronic kidney disease; Z99.2 Dependence on renal dialysis; E03.9 Hypothyroidism, unspecified; D63.1 Anemia in chronic kidney disease; B86 Scabies; R55 Syncope and collapse; Y84.9 Medical procedure, unspecified as the cause of abnormal reaction of the patient, or of later complication, without mention of misadventure at the time of the procedure